=== PATIENT | female | born 1995 | race Caucasian/White ===

== ENCOUNTER 2022-01-02 08:41 | Emergency (ER) | payer BC, SELFPAY ==
[2022-01-02 08:50] VITALS: BP 114/70; PULSE 77; RESP 14; TEMP 36.5; O2SAT 100
--- NOTE | 2022-01-02 09:00 | ED.ABDPAIN ---
HPI - Abdominal Pain General Chief Complaint: Abdominal Pain Stated Complaint: throwing up blood last noc Time Seen by Provider: 01/02/22 08:50 History of Present Illness HPI narrative: 26-year-old female presents emergency room complaints of nausea vomiting and diarrhea since last night. Patient states she had multiple episodes of emesis last night, with the last episode having small amount of bright red blood. Patient states that she did eat pizza last night so it is possible that the blood is really just the tomato sauce. Patient admits to frequent use of tylenol, admitting to taking 2 tablets every 4 hours for back pain. Related Data Allergies Allergy/AdvReac Type Severity Reaction Status Date / Time No Known Allergies Allergy Verified 01/02/22 09:02 Review of Systems Review of Systems: CONSTITUTIONAL: Denies fever, chills, or sweats. EYES: Denies visual changes, redness, or discharge. ENT: Denies rhinorrhea, congestion, sore throat, or otalgia. CARDIOVASCULAR: Denies chest pain, palpitations, or edema. RESPIRATORY: Denies cough or dyspnea. GASTROINTESTINAL: Reports abdominal pain, nausea, vomiting and diarrhea GENITOURINARY: Denies dysuria or hematuria. SKIN: Denies rash or itching. MUSCULOSKELETAL: Denies back pain, joint pain, or myalgia. NEUROLOGIC: Denies headache, numbness, dizziness, or weakness. PSYCHIATRIC: Denies anxiety or depression. Exam Narrative: GENERAL: Well-appearing, well-nourished, no physical limitations, and in no acute distress. HEAD: Normocephalic, atraumatic. EYES: Conjunctivae normal, PERRLA and EOMI. CHEST: Clear to auscultation. No respiratory distress. No wheezes rales or rhonchi. No tenderness. HEART: Regular rate and rhythm. No murmur heard. Normal peripheral pulses. ABDOMEN: Soft, right upper quadrant tenderness, morbid obesity, normal active bowel sounds. BACK: No CVA tenderness; No cervical/thoracic/lumbar tenderness, step-offs, bony abnormality; FROM EXTREMITIES: Normal range of motion. No edema. No clubbing or cyanosis SKIN: Warm, dry, no rash. No noted wounds NEURO: No focal deficits. Alert and oriented x3. MAEW. CN's II-XI intact bilaterally, normal gait PSYCH: Cooperative. Normal mood and affect. Course Vital Signs Vital signs: Vital Signs Temperature 36.5 C 01/02/22 08:50 Pulse Rate 77 01/02/22 08:50 Respiratory Rate 14 01/02/22 08:50 Blood Pressure 114/70 01/02/22 08:50 Pulse Oximetry 100 01/02/22 08:50 Oxygen Delivery Room Air 01/02/22 08:50 Temperature 36.5 C 01/02/22 08:50 Pulse Rate 77 01/02/22 08:50 Respiratory Rate 14 01/02/22 08:50 Blood Pressure 114/70 01/02/22 08:50 Pulse Oximetry 100 01/02/22 08:50 Oxygen Delivery Room Air 01/02/22 08:50 MDM - Abdominal Pain Lab Data Result diagrams: 01/02/22 09:03 01/02/22 09:03 Labs: Lab Results 01/02/22 01/02/22 01/02/22 Range/Units 09:01 09:03 09:03 WBC 9.0 (4.5-10.0) K/mm3 RBC 4.67 (4.2-5.4) M/mm3 Hgb 12.9 (12.0-15.0) g/dL Hct 41.1 (37.0-47.0) % MCV 88.0 (80-100) fl MCH 27.6 (26-34) pg MCHC 31.4 L (32-36) g/dl RDW 13.2 (11.5-14.5) % Plt Count 266 (150-375) k/mm3 MPV 10.9 H (7.4-10.4) fl Immature Gran % (Auto) 0.2 (0-0.5) % Neut % (Auto) 66.3 (45.5-73.1) % Lymph % (Auto) 25.6 (18.3-44.2) % Miller % (Auto) 6.5 (2.6-8.5) % Eos % (Auto) 1.1 (0-4.4) % Baso % (Auto) 0.3 (0.2-1.2) % Lymph # (Auto) 2.31 (0.9-3.2) K/mm3 Miller # (Auto) 0.6 (0.1-0.6) K/mm3 Eos # (Auto) 0.1 (0-0.3) K/mm3 Baso # (Auto) 0.0 (0.0-0.1) K/mm3 Abs Immat Gran (auto) 0.02 (0.00-0.031) K/mm3 Absolute Neuts (auto) 6.0 (1.3-6.7) K/mm3 Absolute Nucleated RBC 0.0 (0.0-0.012) K/mm3 Nucleated RBC % 0.0 (0.0-0.2) % Sodium 137 (137-145) mmol/L Potassium 3.9 (3.4-5.0) mmol/L Chloride 100 (98-107) mmol/L Carbon Dioxide 29 (22-30) mmol/L Ani
[2022-01-02 09:10] LABS: Basophils Percent Auto 0.3 % (0.2-1.2); Eosinophils Absolute Auto 0.1 K/mm3 (0-0.3); Eosinophils Percent Auto 1.1 % (0-4.4); Hematocrit 41.1 % (37.0-47.0); Hemoglobin 12.9 g/dL (12.0-15.0); Immature Granulocyte Absolute 0.02 K/mm3 (0.00-0.031); Immature Granulocyte Percent A 0.2 % (0-0.5); Lymphocytes Absolute Auto 2.31 K/mm3 (0.9-3.2); Lymphocytes Percent Auto 25.6 % (18.3-44.2); Mean Corpuscular HGB Conc 31.4 g/dl (32-36); Mean Corpuscular Hemoglobin 27.6 pg (26-34); Mean Platelet Volume 10.9 fl (7.4-10.4); Monocytes Absolute Auto 0.6 K/mm3 (0.1-0.6); Monocytes Percent Auto 6.5 % (2.6-8.5); Neutrophils Percent Auto 66.3 % (45.5-73.1); Platelet Count Result 266 k/mm3 (150-375); Red Blood Count 4.67 M/mm3 (4.2-5.4); Red Cell Distribution Width 13.2 % (11.5-14.5)
[2022-01-02 09:12] LABS: Appearance Urine Slightly Cloudy (Clear); Bilirubin Urine Negative (Negative); Blood Urine 3+ (Negative); Color Urine Yellow (Yellow); Glucose Urine UA Negative (Negative); Ketones Urine Negative (Negative); Leukocyte Esterase Ur Trace LEU/UL (Negative); Nitrate Urine Negative (Negative); Protein Urine Negative (Negative); Urobilinogen Urine 0.2 mg/dL (<2.0); pH Urine 7.5 (5.0-9.0)
[2022-01-02 09:15] LABS: Bacteria Urine Trace /hpf; Mucus Urine Rare /lpf; RBC Urine >75 /hpf (0-2); Squamous Epithelial Cell Urine Many /hpf (Few); WBC Urine 0-3 /hpf
[2022-01-02 09:29] LABS: Alanine Aminotransferase 15 U/L (6-35); Albumin Level 4.4 g/dL (3.5-5.1); Alkaline Phosphatase 63 U/L (38-126); Anion Gap 8 mmol/L (8-16); Aspartate Amino Transferase 18 U/L (14-36); Bilirubin,Total 0.6 mg/dL (0.2-1.3); Blood Urea Nitrogen 8 mg/dL (7-17); Calcium 9.4 mg/dL (8.4-10.2); Carbon Dioxide 29 mmol/L (22-30); Chloride 100 mmol/L (98-107); Estimated CRCL calculation 138 ml/min; Estimated Glomerular Filt Rate > 60; Glucose 98 mg/dL (65-110); Lipase 38 U/L (23-300); Potassium 3.9 mmol/L (3.4-5.0); Sodium 137 mmol/L (137-145)
[2022-01-02] MEDS: SODIUM CHLORIDE 0.9% IV 1,000 ML 999 ML IV CONT (09:37)
[2022-01-02] MEDS: PANTOPRAZOLE SODIUM IV 40 MG VIAL IV PUSH (09:38)
[2022-01-02] MEDS: ONDANSETRON INJ 4 MG/2 ML VIAL IV PUSH (09:38)
[2022-01-02] MEDS: Please add drug allergy info to patient profile. 1 EACH XX (09:42)
[2022-01-02 09:50] LABS: Add Urine Microscopic? YES
== END 2022-01-02 11:04 | disposition home or self-care (01) ==
PROVIDERS: Emergency Medicine; Emergency Provider Nurse Practitioner Family
DX: R11.2 Nausea with vomiting, unspecified (principal); R10.9 Unspecified abdominal pain
CPT/HCPCS: 36415; 80053; 81001; 81025; 83690; 85025; 96361; 96374; 96375; 99284; C9113; J2405; J7030

== ENCOUNTER 2022-12-15 12:46 | Emergency (ER) | payer OTHER, SELFPAY ==
--- NOTE | ~2022-12-15 | XR_ITS ---
XR finger 3rd RT min 2V 12/15/2022 13:10 INDICATION: Right third finger pain PROCEDURE: 3 views right third finger COMPARISON: No prior studies for comparison. FINDINGS: Fracture, dislocation or subluxation is not identified. The soft tissues appear within norm al limits. No foreign bodies are identified. IMPRESSION: 1: NO ACUTE BONE OR JOINT ABNORMALITY IDENTIFIED. Reviewed, dictated and finalized at location A.
--- NOTE | 2022-12-15 12:48 | ED.EXTPRO ---
HPI - Extremity Problem General Chief complaint: Skin/Abscess/Foreign Body Stated complaint: R finger injury Time Seen by Provider: 12/15/22 12:47 Source: patient Mode of arrival: ambulatory Limitations: no limitations History of Present Illness HPI Narrative: 27 year old female presents to the Emergency Department complaining of right 3rd finger injury. States slammed in hybrid corn breeder 3 days ago. Thinks it may be getting infected because more erythema and swelling. MD Complaint: extremity pain Onset (ago): day(s) (3) Pain Consistency: constant Location: right and upper extremity (3rd finger) Radiation: none Relieving factors: nothing Exacerbating factors: nothing Associated symptoms: denies other symptoms Related Data Home Medications Medication Instructions Recorded Confirmed levothyroxine 50 mcg capsule 50 mcg PO DAILY 01/08/22 12/15/22 norgestimate-ethinyl estradiol 1 tablet PO DAILY 01/08/22 12/15/22 0.18 mg/0.215mg/0.25mg-35 mcg(28)tablet (Tri-Estarylla) hydrocodone 5 mg-acetaminophen 300 1 tablet PO Q4-6H PRN back pain 12/15/22 12/15/22 mg tablet Allergies Allergy/AdvReac Type Severity Reaction Status Date / Time No Known Allergies Allergy Verified 01/08/22 14:27 Review of Systems Review of Systems: All systems reviewed & are unremarkable except as noted in HPI and below Constitutional: Constitutional: Reports as per HPI, Denies chills and Denies fever(s) Eyes: Eyes: Reports as per HPI and Denies change in vision ENT: Reports system reviewed and no additional complaints, except as documented Cardiovascular: Cardiovascular: Reports as per HPI and Denies chest pain Respiratory: Respiratory: Reports as per HPI and Denies dyspnea Gastrointestinal: Gastrointestinal: Reports as per HPI, Denies nausea and Denies vomiting Genitourinary: Genitourinary: Reports no additional female genitourinary complaints Musculoskeletal: Musculoskeletal: Reports no additional musculoskeletal complaints Integumentary/Breasts: Skin/Breast: Reports system reviewed and no additional complaints, except as docu Neurologic: Reports system reviewed and no additional complaints, except as documented Psychiatric: Psychiatric: Reports no additional psychiatric complaints Endocrine: Endocrine: Reports no additional endocrine complaints Hematologic/Lymphatic: Hematologic/Lymphatic: Reports no additional hematologic/lymphatic complaints Allergic/Immunologic: Allergic/Immunologic: Reports no additional allergic/immunologic complaints PMFSH Past Medical History Medical History Nausea and vomiting Family History Family History Father Diabetes mellitus Hypertension Depression Mother Depression Social History Social History Smoking status: Never smoker Alcohol intake: current Substance use: current Living arrangements: with family Gender identity (if verbalized by the patient): Female Exam Const: General: healthy appearing Nutritional Appearance: well nourished Orientation/consciousness: patient oriented x3 Limitations: no limitations HENMT: Head: normal to inspection Ears: external ears normal Face/Nose/Sinus: Normal external nose present Face and sinus: normal facial exam Eyes: Conjunctivae: conjunctivae normal Pupils: Equal, round and reactive pupils present EOM: EOMs intact bilaterally Direct Ophthalmoscopy: no photophobia Neck: Neck: normal visual inspection Chest: Chest palpation & inspection: normal inspection of the chest Resp: Effort & Inspection: normal respiratory effort Cardio: Rate: regular rate GI: Inspection: non-distended Skin: Other: erythema to distal R 3rd finger Neuro: General: patient oriented x3 and moves all extremities Cranial nerves: Yes Nystagmus not present Speech: normal speech G
[2022-12-15 12:50] VITALS: BP 111/72; PULSE 72; RESP 20; TEMP 36.7; O2SAT 96
[2022-12-15 13:38] VITALS: BP 122/78; PULSE 80; RESP 20; TEMP 36.6; O2SAT 98
== END 2022-12-15 13:39 | disposition home or self-care (01) ==
PROVIDERS: Emergency Provider Emergency Medicine
DX: S60.031A Contusion of right middle finger without damage to nail, initial encounter (principal); L03.011 Cellulitis of right finger; Z79.891 Long term (current) use of opiate analgesic; W23.0XXA Caught, crushed, jammed, or pinched between moving objects, initial encounter
CPT/HCPCS: 73140; 99283

== ENCOUNTER 2023-06-27 01:07 | Emergency (ER) | payer BC, SELFPAY ==
[2023-06-27 01:07] VITALS: BP 106/67; PULSE 60; RESP 18; TEMP 36.9; O2SAT 99
--- NOTE | 2023-06-27 01:10 | ED.URI ---
HPI - URI/Sore Throat General Chief Complaint: Dizziness Stated Complaint: Sinus Pressure Time Seen by Provider: 06/27/23 01:08 Source: patient Mode of arrival: ambulatory Limitations: no limitations History of Present Illness HPI Narrative: This is a 27-year-old female with sinus congestion with a postnasal drip bilateral ear pressure with low-grade fevers with no shortness of breath no wheezing no nausea vomiting. MD elicited complaint: fever, nasal congestion and sinus pain Onset (ago): day(s) Consistency: constant Severity: moderate Related Data Home Medications Medication Instructions Recorded Confirmed levothyroxine 50 mcg capsule 50 mcg PO DAILY 01/08/22 06/27/23 norgestimate-ethinyl estradiol 1 tablet PO DAILY 01/08/22 06/27/23 0.18 mg/0.215mg/0.25mg-35 mcg(28)tablet (Tri-Estarylla) Allergies Allergy/AdvReac Type Severity Reaction Status Date / Time No Known Allergies Allergy Verified 06/27/23 01:23 Review of Systems Review of Systems: All systems reviewed & are unremarkable except as noted in HPI and below PMFSH Past Medical History Medical History Nausea and vomiting Family History Family History Father Diabetes mellitus Hypertension Depression Mother Depression Social History Social History Smoking status: Never smoker Alcohol intake: current Substance use: current Living arrangements: with family Gender identity (if verbalized by the patient): Female Exam Const: General: healthy appearing Nutritional Appearance: well nourished Orientation/consciousness: patient oriented x3 HENMT: Other: Frontal maxillary sinus tenderness with palpation Eyes: Conjunctivae: conjunctivae normal Neck: Neck: normal visual inspection, no lymphadenopathy and no meningeal signs Chest: Chest palpation & inspection: normal inspection of the chest Resp: Effort & Inspection: normal respiratory effort Auscultation: clear to auscultation bilaterally Cardio: Rate: regular rate Rhythm: regular rhythm Course Course Emergency Course: COVID RSV and influenza reviewed negative, patient given Zithromax p.o. here in the emergency department. patient is positive for COVID Transfer Transfer comments: COVID RSV and influenza were all reviewed and negative, patient received a dose Zithromax p.o.. Critical Care Time Critical Care Time Critical Care Time: No Discharge Plan Discharge Clinical Impression: COVID-19 Patient Disposition: Home, Self-Care Condition: Stable Instructions: Antibiotic Form, COVID-19 (Coronavirus Disease 2019) (ED) Additional Instructions: advised to take medicine as prescribed self isolate x1 week, Tylenol or Motrin and follow with primary if symptoms persist or worsen. Prescriptions: New Paxlovid 300 mg (150 mg x 2)-100 mg tablets,dose pack See Rx Instructions .ROUTE .COMPLEX Qty: 30 0RF Rx Instructions: take TWO 150 mg tablets of nirmatrelvir with ONE 100 mg tablet of ritonavir twice daily for 5 days No Action norgestimate-ethinyl estradiol [Tri-Estarylla] 0.18/0.215/0.25 mg-35 mcg (28) tablet 1 tablet PO DAILY levothyroxine 50 mcg capsule 50 mcg PO DAILY Follow-up/Referrals: UNKNOWN,DOCTOR [Primary Care Provider] - Time of Disposition: 02:04
[2023-06-27] MEDS: AZITHROMYCIN 250 MG TABLET 500 MG PO (01:36)
[2023-06-27 01:52] LABS: SARS-CoV-2 RNA PCR Positive (Negative)
[2023-06-27 01:53] LABS: Influenza A QL RT-PCR Negative (Negative); Influenza B QL RT-PCR Negative (Negative); RSV RNA, RT-PCR Negative (Negative)
== END 2023-06-27 02:25 | disposition home or self-care (01) ==
PROVIDERS: Emergency Provider Emergency Medicine
DX: U07.1 COVID-19 (principal); Z79.899 Other long term (current) drug therapy
CPT/HCPCS: 87637; 99283; A9270

== ENCOUNTER 2023-06-30 05:21 | Emergency (ER) | payer BC, SELFPAY ==
--- NOTE | ~2023-06-30 | XR_ITS ---
EXAMINATION: XR chest 1V portable DATE: 06/30/2023 05:48 INDICATION: Shortness of breath. TECHNIQUE: A single frontal view of the chest was obtained. COMPARISON: None. FINDINGS: There is no pneumonia, pleural effusion, or pneumothorax. The heart size is normal. IMPRESSION: 1. No acute cardiopulmonary disease. Reviewed, dictated and finalized at location E. SCALER
[2023-06-30 05:21] VITALS: BP 125/70; PULSE 74; RESP 20; TEMP 36; O2SAT 99
[2023-06-30 05:57] LABS: Hematocrit 37.6 % (35.0-49.0); Hemoglobin 12.1 g/dL (12.0-15.0); Mean Corpuscular HGB Conc 32.2 g/dL (32.0-36.0); Mean Corpuscular Hemoglobin 27.7 pg (27.0-31.0); Mean Platelet Volume 10.9 fl (9.2-11.8); Platelet Count Result 256 K/mm3 (150-420); Red Blood Count 4.37 M/mm3 (4.20-5.40); White Blood Count 11.2 K/mm3 (4.8-10.8)
[2023-06-30 06:06] LABS: Anion Gap 11 mmol/L (8-16); Blood Urea Nitrogen 9 mg/dL (7-18); Calcium 8.8 mg/dL (8.5-10.1); Carbon Dioxide 26 mmol/L (21-32); Chloride 101 mmol/L (98-108); Estimated CRCL calculation 120 ml/min; Estimated Glomerular Filt Rate > 60; Glucose 117 mg/dL (70-99); Osmolality Calculated 285 mOsm/kg (285-295); Potassium 3.5 mmol/L (3.5-5.1); Sodium 138 mmol/L (136-145)
--- NOTE | 2023-06-30 06:15 | ED.URI ---
HPI - URI/Sore Throat General Chief Complaint: Upper Respiratory Infection Stated Complaint: sick Source: patient Mode of arrival: ambulatory Limitations: no limitations History of Present Illness HPI Narrative: patient is a 27-year-old female with known COVID 5 days ago. She has still had some complaints to include shortness of breath. She took the Paxlovid but did not like the results of how she felt so she stopped that medication. MD elicited complaint: cough and nasal congestion Onset (ago): day(s) (5) Consistency: constant Severity: moderate Pain scale (0-10): 5 Description of mucous: clear Able to tolerate fluids by mouth: Yes Exacerbating factors: nothing Relieving factors: nothing Associated symptoms: myalgias, chest pain ( With breathing only) and shortness of breath Treatments prior to arrival: other ( used antiviral but did not like how it made her feel as she felt worse; stopped antiviral) Related Data Home Medications Medication Instructions Recorded Confirmed levothyroxine 50 mcg capsule 50 mcg PO DAILY 01/08/22 06/30/23 norgestimate-ethinyl estradiol 1 tablet PO DAILY 01/08/22 06/30/23 0.18 mg/0.215mg/0.25mg-35 mcg(28)tablet (Tri-Estarylla) Allergies Allergy/AdvReac Type Severity Reaction Status Date / Time No Known Allergies Allergy Verified 06/30/23 05:45 Review of Systems Review of Systems: All systems reviewed & are unremarkable except as noted in HPI and below Constitutional: Constitutional: Reports no additional constitutional complaints Eyes: Eyes: Reports no additional eye complaints ENT: Reports system reviewed and no additional complaints, except as documented Cardiovascular: Cardiovascular: Reports no additional cardiovascular complaints Respiratory: Respiratory: Reports no additional respiratory complaints Gastrointestinal: Gastrointestinal: Reports no additional gastrointestinal complaints Genitourinary: Genitourinary: Reports no additional female genitourinary complaints Musculoskeletal: Musculoskeletal: Reports no additional musculoskeletal complaints Integumentary/Breasts: Skin/Breast: Reports system reviewed and no additional complaints, except as docu Neurologic: Reports system reviewed and no additional complaints, except as documented Psychiatric: Psychiatric: Reports no additional psychiatric complaints Endocrine: Endocrine: Reports no additional endocrine complaints Hematologic/Lymphatic: Hematologic/Lymphatic: Reports no additional hematologic/lymphatic complaints Allergic/Immunologic: Allergic/Immunologic: Reports no additional allergic/immunologic complaints [facility] Past Medical History Medical History Nausea and vomiting Family History Family History Father Diabetes mellitus Hypertension Depression Mother Depression Social History Social History Smoking status: Never smoker Alcohol intake: current Substance use: current Living arrangements: with family Gender identity (if verbalized by the patient): Female Exam Const: General: healthy appearing Nutritional Appearance: well nourished Orientation/consciousness: patient oriented x3 HENMT: Head: normal to inspection Ears: external ears normal Face/Nose/Sinus: Normal external nose present Eyes: Conjunctivae: conjunctivae normal Pupils: Equal, round and reactive pupils present EOM: EOMs intact bilaterally Neck: Neck: normal visual inspection Chest: Chest palpation & inspection: normal inspection of the chest Resp: Effort & Inspection: normal respiratory effort and not labored Auscultation: clear to auscultation bilaterally and no crackles Cardio: Rate: regular rate Rhythm: regular rhythm Heart sounds: no murmurs GI: Inspection: non-distended GI Palp: No Tenderness to palpation present (GI) Auscultati
== END 2023-06-30 06:46 | disposition home or self-care (01) ==
PROVIDERS: Emergency Provider Emergency Medicine
DX: U07.1 COVID-19 (principal)
CPT/HCPCS: 36415; 71045; 80048; 85027; 99283

== ENCOUNTER 2023-07-01 01:32 | Emergency (ER) | payer BC, SELFPAY ==
[2023-07-01 01:32] VITALS: BP 118/82; PULSE 76; RESP 18; TEMP 36; O2SAT 99
--- NOTE | 2023-07-01 01:49 | ED.NAVMDI ---
HPI - Nausea/Vomiting/Diarrhea General Chief complaint: Nausea/Vomiting/Diarrhea Stated complaint: sick Time Seen by Provider: 07/01/23 01:42 Source: patient Mode of arrival: ambulatory Limitations: no limitations History of Present Illness HPI Narrative: patient is a 27 years old white female came to the emergency room with nausea and vomiting unable to keep anything down for the last 24 hours. Patient tested positive for COVID on June 27, started on paxlovid which stopped 2 days later because make her feel funny Was seen again on June 30 which is yesterday because of shortness of breath and nasal congestion, workup at that time include blood workup and chest x-ray were negative and patient was discharged on Z-Main, prednisone and albuterol inhaler. Patient is back again to the emergency room on July 01 because unable to keep anything down. She denies trouble breathing or nasal congestion. Patient drove herself to the emergency room. patient been uses marijuana daily, last use was 5 days ago. Related Data Home Medications Medication Instructions Recorded Confirmed levothyroxine 50 mcg capsule 50 mcg PO DAILY 01/08/22 07/01/23 (Tirosint) norgestimate-ethinyl estradiol 1 tablet PO DAILY 01/08/22 07/01/23 0.18 mg/0.215mg/0.25mg-35 mcg(28)tablet (Tri-Estarylla) albuterol sulfate 90 mcg/actuation 2 puff inhalation Q6H PRN 07/01/23 07/01/23 aerosol inhaler (ProAir HFA) shortness of breath or wheezing azithromycin 250 mg tablet See Rx Instructions .Route .COMPLEX 07/01/23 07/01/23 (Zithromax) Allergies Allergy/AdvReac Type Severity Reaction Status Date / Time No Known Allergies Allergy Verified 07/01/23 01:58 Review of Systems Review of Systems: All systems reviewed & are unremarkable except as noted in HPI and below PMFSH Past Medical History Medical History Nausea and vomiting Family History Family History Father Diabetes mellitus Hypertension Depression Mother Depression Social History Social History Smoking status: Never smoker Alcohol intake: current Substance use: current Living arrangements: with family Gender identity (if verbalized by the patient): Female Exam Narrative: General appearance: Well-developed, well-nourished , sitting at the edge of the bed, holding vomiting bag in hand Skin: Normal color Head: Normocephalic, nontraumatic ENT: Oropharynx normal, ears normal, nose normal Neck: Supple, nontender Chest and respiratory: Airway patent, no respiratory distress, no accessory muscle use Heart: Regular rate/rhythm Abdomen: Soft, nontender, no organomegaly, quiet bowel sounds Neurologic: Alert and oriented ?3, PROFESSIONAL BUILDER is normal as tested, no gross motor deficit Course Vital Signs Vital signs: Vital Signs Temperature 36.0 C L 07/01/23 01:32 Pulse Rate 76 07/01/23 01:32 Respiratory Rate 18 07/01/23 01:32 Blood Pressure 118/82 07/01/23 01:32 Pulse Oximetry 99 07/01/23 01:32 Oxygen Delivery Room Air 07/01/23 01:32 Temperature 36.0 C L 07/01/23 01:32 Pulse Rate 76 07/01/23 01:32 Respiratory Rate 18 07/01/23 01:32 Blood Pressure 118/82 07/01/23 01:32 Pulse Oximetry 99 07/01/23 01:32 Oxygen Delivery Room Air 07/01/23 01:32 MDM - Nausea/Vomiting/Diarrhea MDM Narrative Medical decision making narrative: patient tested positive for COVID 4 days ago, came to the ED with nausea and vomiting unable to keep anything down. differential diagnosis: COVID infectio
[2023-07-01] MEDS: ONDANSETRON INJ 4 MG/2 ML VIAL 8 MG IV PUSH (01:55)
[2023-07-01] MEDS: SODIUM CHLORIDE 0.9% IV 1,000 ML 999 ML IV CONT ×2 (01:55→02:46)
--- NOTE | 2023-07-01 02:03 | PC.NURSE ---
IV STARTED AND PATIENT MEDICATED, SEE MAR. NO ACTIVE EMESIS NOTED. BLOOD WORK SENT TO LAB FOR ANALYSIS. CALL LIGHT WITHIN REACH.
[2023-07-01 02:05] LABS: Basophils Absolute Auto 0.02 K/mm3 (0.00-0.10); Basophils Percent Auto 0.1 % (0.0-1.0); Eosinophils Absolute Auto 0.01 K/mm3 (0.02-0.50); Eosinophils Percent Auto 0.1 % (1.0-6.0); Hematocrit 39.4 % (35.0-49.0); Hemoglobin 12.8 g/dL (12.0-15.0); Immature Granulocyte Absolute 0.07 K/mm3 (0.00-0.00); Immature Granulocyte Percent A 0.4 % (0.0-0.0); Lymphocytes Absolute Auto 1.59 K/mm3 (1.10-4.50); Lymphocytes Percent Auto 9.4 % (18.0-42.0); Mean Corpuscular HGB Conc 32.5 g/dL (32.0-36.0); Mean Corpuscular Hemoglobin 27.9 pg (27.0-31.0); Mean Platelet Volume 11.1 fl (9.2-11.8); Monocytes Absolute Auto 0.83 K/mm3 (0.10-0.90); Monocytes Percent Auto 4.9 % (2.0-11.0); Neutrophils Absolute Auto 14.4 K/mm3 (1.7-7.2); Neutrophils Percent Auto 85.1 % (50.0-70.0); Platelet Count Result 316 K/mm3 (150-420); Red Blood Count 4.58 M/mm3 (4.20-5.40); Red Cell Distribution Width 12.8 % (11.6-14.4); White Blood Count 16.9 K/mm3 (4.8-10.8)
[2023-07-01 02:21] LABS: Alanine Aminotransferase 14 U/L (14-59); Albumin Level 3.9 g/dL (3.4-5.0); Alkaline Phosphatase 69 U/L (46-116); Anion Gap 10 mmol/L (8-16); Aspartate Amino Transferase < 10 U/L (15-37); Bilirubin,Total 0.5 mg/dL (0.00-1.00); Blood Urea Nitrogen 8 mg/dL (7-18); Calcium 8.8 mg/dL (8.5-10.1); Carbon Dioxide 25 mmol/L (21-32); Chloride 102 mmol/L (98-108); Estimated CRCL calculation 126 ml/min; Estimated Glomerular Filt Rate > 60; Glucose 127 mg/dL (70-99); Osmolality Calculated 284 mOsm/kg (285-295); Potassium 4.1 mmol/L (3.5-5.1); Sodium 137 mmol/L (136-145); Total Protein 8.2 g/dL (6.4-8.2)
--- NOTE | 2023-07-01 02:49 | PC.NURSE ---
PATIENT CHECKED, SECOND IV BAG HUNG AND PATIENT RESTING WITHOUT DISTRESS. DENIES FURTHER EMESIS. CALL LIGHT WITHIN REACH. PATIENT AWARE OF REQUEST FOR URINE SPECIMEN. PATIENT REPORTS IMPROVED NAUSEA.
--- NOTE | 2023-07-01 03:50 | PC.NURSE ---
PATIENT ASLEEP ON STRETCHER, IVF INFUSED. RN MONITORING.
--- NOTE | 2023-07-01 04:40 | PC.NURSE ---
ERP AT BEDSIDE FOR PATIENT UPDATE. PLAN FOR DC PATIENT REPORTS FEELING IMPROVED POST TX.
[2023-07-01 04:55] VITALS: BP 106/74; PULSE 58; RESP 18; TEMP 36.1; O2SAT 100
== END 2023-07-01 04:57 | disposition home or self-care (01) ==
PROVIDERS: Emergency Provider Emergency Medicine
DX: U07.1 COVID-19 (principal); R11.10 Vomiting, unspecified; Z79.899 Other long term (current) drug therapy
CPT/HCPCS: 36415; 80053; 85025; 96361; 96374; 99284; J2405; J7030

== ENCOUNTER 2024-07-06 18:06 | Emergency (ER) | payer BC, SELFPAY ==
[2024-07-06] VITALS (14 sets, daily range): BP systolic 95–133; BP diastolic 57–88; PULSE 73–78; RESP 16–18; TEMP 36.4; O2SAT 97–100
--- OUTSIDE RECORDS SUMMARY | 2024-07-06 18:09 | XMS_ITS | Clinical Summary ---
Author Organization [facility] Address [facility] [place] [address] Care Team Providers Care Concrete Analyst Name Role Phone Madhu Carolina MD Primary Care Provider [phone] Allergies Active Allergy Reactions Criticality Noted Date Comments Coconut (Cocos Nucifera) Unknown 08/19/2017 Mint Unknown 08/19/2017 Medications LEVOTHYROXINE 25 MCG tabletIndication s:Hypothyroidism TAKE 1 TABLET BY MOUTH DAILY 30 tablet 11/25/2018 Active etonogestrel (IMPLANON) 68 MG SC implant Active Active Problems No known active problems Family History Medical History Relation Comments Diabetes Father No Known Problems Mother Relation Status Comments Father Mother Social History Tobacco Use Types Packs/Day Years Used Date Smoking Tobacco: Never Smokeless Tobacco: Never Alcohol Use Standard Drinks/Week Comments Yes 0 (1 standard drink = 0.6 oz pur e alcohol) Comments No Sex and Gender Information Value Date Recorded Sex Assigned at Not on file Legal Sex Female 7:55 PM CDT Gender Identity Not on file Sexual Orientation Not on file Last Filed Vital Signs Vital Sign Reading Time Taken Comments Blood Pressure 115/78 04/25/2020 10:19 AM DISPATCHER SERVICE CHIEF Pulse 98 04/25/2020 10:19 AM DISPATCHER SERVICE CHIEF Temperature 36.2 C (97.2 F) 04/25/2020 10:19 AM DISPATCHER SERVICE CHIEF Respiratory Rate 18 04/25/2020 10:19 AM DISPATCHER SERVICE CHIEF Oxygen Saturation 100% 04/25/2020 10:19 AM DISPATCHER SERVICE CHIEF Inhaled Oxygen Concentration - - Weight 113.4 kg (250 lb) 04/25/2020 10:19 AM DISPATCHER SERVICE CHIEF Height 170.2 cm (5' 7 ) 04/25/2020 10:19 AM DISPATCHER SERVICE CHIEF Body Mass Index 39.16 04/25/2020 10:19 AM DISPATCHER SERVICE CHIEF Plan of Treatment Health Maintenance Due Date Last Done Comments Cervical Cancer Screening Pa p Smear (Age 21 to 29) Every 3 Years 1994 Cervical Cancer Screening 1994 Annual Physical 1997 DTaP, Tdap and Td Vaccines ( 1 - Tdap) 2013 Hepatitis B Vaccines (1 of 3 - 19+ 3-dose series) 2013 COVID-19 Vaccine (2023-2 5 season) 2024 Influenza Adult (#1) 2024 Hepatitis C Completed 08/19/2017, 08/19/2017 HPV Vaccines Aged Out No longer eligi ble based on patient's age to complete this topic Meningococcal B Vaccine Aged Out No l onger eligible based on patient's age to complete this topic Meningococcal Vaccine Aged Out No maxine joe eligible based on patient's age to complete this topic Pneumococcal Vaccine: Pediatrics (0 to 5 Years) and At-Risk Patients (6 to 64 Years) Aged Out No longer eligible b ased on patient's age to complete this topic RSV Immunizations Under 20 Months Aged Out No longer eligible b ased on patient's age to complete this topic Procedures Procedure Name Priority Date/Time Associated Diagnosis Comments HEPATITIS A,B,& C Routine 08/19/2017 11: 50 AM CDT from Last 3 Months or Most Recently Relevant to Health Maintenance Results * HEPATITIS A,B,& C (08/19/2017 11:50 AM CDT) HAV IGM NON-REACTI VE NR [employer] TO EPIC CONVERSION HEPATITIS B SURFACE AG NON-REACTI VE NR [employer] TO EPIC CONVERSION HEP B SURFACE AB NON-REACTI VE [employer] TO EPIC CONVERSION HEP B CORE TOTAL AB NON-REACTI VE NR [employer] TO EPIC CONVERSION HEPATITIS C AB NON-REACTI VE NR [employer] TO EPIC CONVERSION 08/19/2017 11:5 0 AM CDT 08/19/2017 11:50 AM CDT Narrative [employer] TO EPIC CONVERSION - 08/19/2017 10:50 PM CDT Result Communication: Call patient with results us [facility] Final Result [employer] TO EPIC CONVERSION from Last 3 Months or Most Recently Relevant to Health [place] [address] ALLIED BENEFITS Care Teams Concrete Analyst Relationship Specialty Start Date End Date Madhu Carolina MD PCP - General 09/14/15
--- OUTSIDE RECORDS SUMMARY | 2024-07-06 18:09 | XMS_ITS | Data Portability ---
Author Organization [facility] Address [address] [place] [address] [place] [address] Care Team Providers Care Signal System Testing Maintainer Name Role Phone STEFANIE NASH Primary Care Provider Assessment Encounter Date Assessment Date Assessment LastModified by Organization Details LastModified Time 05/21/2024 05/21/2024 pap up to date BMI 42.8 plan testing continue vitamin f/u 3 week new ob and firt look with nipt/carrier basic panel with TSH today [email or web address] Not available 05/21/2024 15:09:02 Plan of Treatment Reminders Order Date Submit Date Provider Last Modified By Organization Details Last Modified Time Details Appointments OB ROUTINE 2024 02:45P M CAROLINA SheehanM Not available Not available Not available U/S OB BASELIN E 2024 02:30P M ULTRASOUND Not available Not available Not available OB ROUTINE 2024 03:30P M Blanca Pierre CNM Not available Not available Not available Lab CT + NG + TV, RNA, unspeci fied specime n 2023 024 [facility] (Lab), [address], [place], [address], 05/22/2024 13:30:55 drug screen, urine 2024 025 [facility], [address], [place], [address], 06/18/2024 12:35:16 culture , urine 2024 025 [facility] (Lab), [address], [place], [address], 06/19/2024 22:46:36 Referral None recorde d. Procedures None recorde d. Surgeries None recorde d. Imaging US, obstetr ic, nuchal translu cency 2024 025 [email or web address] [place], [facility] [address], [place], [address], 06/18/2024 18:12:07 Medication Orders None recorde d. Patient TargetsNo targets recorded. Patient InstructionsNo instructions recorded. Reason for Referral None Reported. Results Created Date Observation Date Name Description Value Unit Range Abnormal Flag Note LastModifiedBy Organization Detail LastModifiedTime 06/23/19 25 06/23/2024 [UNIT Y] ANEUP LOIDY NIPT fraction 4.3% normal Not Available [facility] [address] [place] [address], [place], [address], 06/23/2024 23:50:06 06/23/19 25 06/23/2024 [UNIT Y] ANEUP LOIDY NIPT 22Q11.2 microdeletio n LOW RISK <1 in 10,000 normal Not Available [facility] [address] [facility], [place], [address], 06/23/2024 23:50:06 06/23/19 25 06/23/2024 [UNIT Y] ANEUP LOIDY NIPT sex chromosome aneuploidy NOT DETECT ED normal Not Available [facility] [address] [facility], [place], [address], 06/23/2024 23:50:06 06/23/19 25 06/23/2024 [UNIT Y] ANEUP LOIDY NIPT monosomy X LOW RISK <1 in 10,000 normal Not Available [facility] [facility], [place], [address], 06/23/2024 23:50:06 06/23/19 25 06/23/2024 [UNIT Y] ANEUP LOIDY NIPT trisomy 13 LOW RISK <1 in 10,000 normal Not Available [facility] [address], [place], [address], 06/23/2024 23:50:06 06/23/19 25 06/23/2024 [UNIT Y] ANEUP LOIDY NIPT trisomy 18 LOW RISK <1 in 10,000 normal Not Available [facility] [address], [place], [address], 06/23/2024 23:50:06 06/23/19 25 06/23/2024 [UNIT Y] ANEUP LOIDY NIPT trisomy 21 LOW RISK <1 in 10,000 normal Not Available [facility] [address], [place], [address], 06/23/2024 23:50:06 06/23/19 25 06/23/2024 [UNIT Y] ANEUP LOIDY NIPT sex MALE normal Not Available [facility] [address] [facility], [place], [address], 06/23/2024 23:50:06 06/23/19 25 06/23/2024 [UNIT Y] ANEUP LOIDY NIPT gestation SINGLE TON normal Not Available [facility] [address] , [place], [address], 06/23/2024 23:50:06 06/23/19 25 06/23/2024 [UNIT Y] ANEUP LOIDY NIPT for detailed report, see pdf See PDF normal Not Available [facility] [address] , [place], [address], 06/23/2024 23:50:06 05/21/20 24 05/21/2024 CT/GC AND TRICH OMONA S VAGIN DAGMAR (RRNA ), URINE chlamydia trachomatis, PCR Negati ve negati ve Not Available [facility] (Lab) [address], [place], [address], 05/22/2024 13:30:55 05/21/20 24 05/21/2024 CT/GC AND TRICH OMONA S VAGIN DAGMAR (RRNA ), URINE neisseria gonorrhoeae, PCR Negati ve negati ve Not Available [facility] (Lab) [address], [place], [address], 05/22/2024 13:30:55 05/21/20 24 05/21/2024 CT/GC AND TRICH OMONA S VAGIN DAGMAR (RRNA ), URINE trichomonas vaginalis ribosomal RNA (rrna) Negati ve negati ve Not Available [facility] (Lab) [address], [place], [address], 05/22/2024 13:30:55 05/21/20 24 05/21/2024 CBC W/DIF F WBC 12.1 10'3/ uL 3.5-10 .5 high Not Available [facility] (Lab) [address], [place], [address], 05/22/2024 13:49:08 05/21/20 24 05/21/2024 CBC W/DIF F RBC 4.39 10'6/ uL (based on docume nted legal sex) 3.80-5 .20 Not Available [facility] (Lab) [address], [place], [address], 05/22/2024 13:49:08 05/21/20 24 05/21/2024 CBC W/DIF F HGB 12.4 g/dL (based on docume nted legal sex) 11.6-1 5.4 Not Available [facility] (Lab) [address], [place], [address], 05/22/2024 13:49:08 05/21/20 24 05/21/2024 CBC W/DIF F HCT 38.8 % (based on docume nted legal sex) 34.0-4 5.0 Not Available [facility] (Lab) [address], [place], [address], 05/22/2024 13:49:08 05/21/20 24 05/21/2024 CBC W/DIF F MCV 88.4 fL 80.0-9 9.0 Not Available [facility] (Lab) [address], [place], [address], 05/22/2024 13:49:08 05/21/20 24 05/21/2024 CBC W/DIF F MCH 28.2 pg 27.0-3 4.0 Not Available [facility] (Lab) [address], [place], [address], 05/22/2024 13:49:08 05/21/20 24 05/21/2024 CBC W/DIF F MCHC 32.0 g/dL 32.0-3 5.5 Not Available [facility] (Lab) [address], [place], [address], 05/22/2024 13:49:08 05/21/20 24 05/21/2024 CBC W/DIF F RDW 13.2 % 11.0-1 5.0 Not Available [facility] (Lab) [address], [place], [address], 05/22/2024 13:49:08 05/21/20 24 05/21/2024 CBC W/DIF F plt 264 10'3/ uL 150-40 0 Not Available [facility] (Lab) [address], [place], [address], 05/22/2024 13:49:08 05/21/20 24 05/21/2024 CBC W/DIF F MPV 12.3 fL 8.8-12 .1 high Not Available [facility] (Lab) [address], [place], [address], 05/22/2024 13:49:08 05/21/20 24 05/21/2024 CBC W/DIF F NRBC's 0.0 % 0.0 Not Available [facility] (Lab) [address], [place], [address], 05/22/2024 13:49:08 05/21/20 24 05/21/2024 CBC W/DIF F absolute NRBCs 0.0 10'3/ uL no refere nce range establ ished Not Available [facility] (Lab) [address] [facility], [place], [address], 05/22/2024 13:49:08 05/21/20 24 05/21/2024 CBC W/DIF F neutrophils 75.5 % 34.0-7 3.0 high Not Available [facility] (Lab) [address] [facility], [place], [address], 05/22/2024 13:49:08 05/21/20 24 05/21/2024 CBC W/DIF F lymphocytes 16.7 % 15.0-5 0.0 Not Available [facility] (Lab) [address] [facility], [place], [address], 05/22/2024 13:49:08 05/21/20 24 05/21/2024 CBC W/DIF F monocytes 6.4 % 1.0-15 .0 Not Available [facility] (Lab) [address] [facility], [place], [address], 05/22/2024 13:49:08 05/21/20 24 05/21/2024 CBC W/DIF F eosinophils 0.7 % 0.0-8. 0 Not Available [facility] (Lab) [address] [facility], [place], [address], 05/22/2024 13:49:08 05/21/20 24 05/21/2024 CBC W/DIF F basophils 0.2 % 0.0-2. 0 Not Available [facility] (Lab) [address] [place], [address], 05/22/2024 13:49:08 05/21/20 24 05/21/2024 CBC W/DIF F immature granulocytes 0.5 % no define d refere nce range Not Available [facility] (Lab) [address] [place] [facility] [place], [address], 05/22/2024 13:49:08 05/21/20 24 05/21/2024 CBC W/DIF F absolute neutrophils 9.1 10'3/ uL 1.5-8. 0 high Not Available [facility] (Lab) [address] [facility], [place], [address], 05/22/2024 13:49:08 05/21/20 24 05/21/2024 CBC W/DIF F absolute lymphocytes 2.0 10'3/ uL 1.0-4. 0 Not Available [facility] (Lab) [address] [facility], [place], [address], 05/22/2024 13:49:08 05/21/20 24 05/21/2024 CBC W/DIF F absolute monocytes 0.8 10'3/ uL 0.2-1. 0 Not Available [facility] (Lab) [address] [facility], [place], [address], 05/22/2024 13:49:08 05/21/20 24 05/21/2024 CBC W/DIF F absolute eosinophils 0.1 10'3/ uL 0.0-0. 6 Not Available [facility] (Lab) [address] [facility], [place], [address], 05/22/2024 13:49:08 05/21/20 24 05/21/2024 CBC W/DIF F absolute basophils 0.0 10'3/ uL 0.0-0. 3 Not Available [facility] (Lab) [address] [facility], [place], [address], 05/22/2024 13:49:08 05/21/20 24 05/21/2024 CBC W/DIF F absolute immature granulocytes 0.1 10'3/ uL 0.00-0 .10 05/22 2:49 AM: P indic ates parti al resul ts on a panel have been relea sed. Addit ional resul ts will follo w. 12/28 /2024 2:49 AM: This resul t has been final verif ied. No addit ional or kong ed resul ts are expec ellen. Not Available [facility] (Lab) [address], [place], [address], 05/22/2024 13:49:08 05/21/20 24 05/21/2024 HEPAT ITIS C ANTIB GURDEEP SCREE N, REFLE X TO CONFI RMATI ON hepatitis C antibody Non-re active non-re active Antib odies to HCV Not Detec ellen, does not exclu de the possi bilit y of expos ure to HCV. Not Available [facility] (Lab) [address], [place], [address], 05/22/2024 13:49:09 05/21/20 24 05/21/2024 HIV 1/2 ANTIG EN/AN TIBOD Y, REFLE X CONFI RMATI ON HIV antigen/anti body Nonrea ctive nonrea ctive HIV-1 antig en and HIV-1 /HIV- 2 antib odies were not detec ellen. No labor atory evide nce of HIV infec tion. Not Available [facility] (Lab) [address], [place], [address], 05/22/2024 13:49:09 05/21/20 24 05/21/2024 HEPAT ITIS B SURFA CE ANTIG EN hepatitis B surface antigen Non-re active non-re active This assay was perfo rmed using [employer] n reage nts and test kits. Value s obtai marquis with other assay metho ds or kits canno t be used inter kong eably . Not Available [facility] (Lab) [address], [place], [address], 05/22/2024 13:49:09 05/21/20 24 05/21/2024 TSH, REFLE X FREE T4 TSH 2.62 uIU/m L 0.30-5 .33 Not Available [facility] (Lab) [address], [place], [address], 05/22/2024 13:49:09 05/21/20 24 05/21/2024 RUBEL LA IGG ANTIB GURDEEP, QUANT rubella antibodies, IgG Reacti ve reacti ve Not Available [facility] (Lab) [address], [place], [address], 05/22/2024 13:49:10 05/21/20 24 05/21/2024 RUBEL LA IGG ANTIB GURDEEP, QUANT rubella antibodies, IgG quant 57.8 IU/mL >=10 Non-r eacti ve (Non- Immun e) <10 IU/mL React jacek (Immu ne) > or = 10 IU/mL Not Available [facility] (Lab) [address] [facility], [place], [address], 05/22/2024 13:49:10 05/21/20 24 05/21/2024 HEMOG LOBIN A1C hemoglobin A1C 5.5 % 4.0-5. 6 The Ameri can Diabe manuel Assoc iatio n recom mends that a prima ry goal of thera py shoul d be a HBA1C of < 7% and that physi cians shoul d reeva luate the treat ment regim en in patie nts with HBA1C value s consi stent ly > 8%. <5.7% Bethany l 5.7 - 6.4% Incre ased risk for diabe manuel >=6.5 % Diagn ostic of diabe manuel <7.0% Goal of thera py >8.0% Actio n sugge sted Not Available [facility] (Lab) [address], [place], [address], 05/22/2024 13:49:10 05/21/20 24 05/21/2024 TYPE/ RH/SC REEN ABO/Rh type O POS Not Available [facility] (Lab) [address], [place], [address], 05/22/2024 13:49:10 05/21/20 24 05/21/2024 TYPE/ RH/SC REEN antibody screen NEG Not Available [facility] (Lab) [address] [facility], [place], [address], 05/22/2024 13:49:10 05/21/20 24 05/21/2024 TYPE/ RH/SC REEN exp date 2023 23:59 Not Available [facility] (Lab) [address] [facility], [place], [address], 05/22/2024 13:49:10 05/21/20 24 05/21/2024 RPR SCREE N, REFLE X TITER /CONF IRMAT ION RPR screen Nonrea ctive nonrea ctive Not Available [facility] (Lab) [address] [facility], [place], [address], 05/22/2024 13:49:11 06/18/19 25 06/18/2024 TSH, REFLE X FREE T4 TSH 1.64 uIU/m L 0.30-5 .33 Not Available [facility] (Lab) [address] [place], [address], 06/19/2024 06:51:10 06/18/19 25 06/18/2024 CULTU RE: URINE result report SEE RESULT S BELOW Test: Cultu re: Urine Speci men Sourc e: Urine - Clean Catch Speci men Type: Urine Speci men Date: 2024 1157 Resul t Date: 2024 2143 Resul t Statu s: Final resul t Abnor mal: No Resul ting Lab: [facility] [address] [facility] [address] Tel: CULTU RE ----- ----- ----- --- No growt h in 1 day (dete ction level of 10,00 0 colon ies / ml.) Not Available [facility] (Lab) [address] [place], [address], 06/19/2024 22:46:36 05/21/20 24 05/21/2024 US, obste tric, 1st trime ster No observ ation record ed. [email or web address] [address], [place], [address], 05/24/2024 21:39:41 06/18/19 25 06/18/2024 US, obste tric, nucha l trans lucen cy No observ ation record ed. nba [place] [address], [place], [address], 06/18/2024 17:53:02 06/18/19 25 06/18/2024 US, obste tric, nucha l trans lucen cy No observ ation record ed. [email or web address] [address], [place], [address], 06/19/2024 21:22:07 Result Notes None recorded. Problems Name Problem SNOMED Code Status Onset Date Resolution Date Notes Provider Name and Address Organization Details Recorded Time Hypothyro idism 20938879 Active testing Blanca Pierre CNM [address], [place], [address], [facility] 5 13:35:15 Mixed anxiety and depressiv e disorder 847414203 Active 2023 Brenda casey, [facility] 4 15:03:58 40133923 Active 2024 Brenda casey, [facility] 5 12:36:08 Obesity 657553619 Active bASA Blanca Pierre CNM [address], [place], [address], [facility] 5 13:35:01 Hypothyro idism 82562928 Active testing Blanca Pierre CNM [address], [place], [address], [facility] 5 13:35:15 History of vertebral fracture 794748899 Active as a child, no permanent hardware CAROLINA Colon [address], [place], [address], [place] [facility] 13:35:49 Problem Notes None recorded. Procedures Surgical History Date Name Laterality Status Provider Name and Address Organization Details Recorded Time 4 Date of Last Pap Smear completed Brenda Darby [facility] 05/21/2024 15:02:57 5 [facility] 06/18/2024 12:07:52 Imaging Results Imaging Date Name Status LastModified by Organization Details LastModified Time 05/21/2024 US, obstetric, 1st trimester completed [email or web address] [address], [place], [address], 05/24/2024 21:39:41 06/18/2024 US, obstetric, nuchal translucency completed [facility] [address], [place], [address], 06/18/2024 17:53:02 06/18/2024 US, obstetric, nuchal translucency completed [email or web address] [address], [place], [address], 06/19/2024 21:22:07 Procedure Notes None recorded. Medical Equipment None Reported. Allergies No known drug allergies Medications Name Sig Start Date Stop Date Status Note LastModified by Organization Details LastModified Time cyclobenzap rine 10 mg tablet TAKE 1 TABLET BY MOUTH AT BEDTIME NEEDED 05/21 completed Not Available Not Available Not Available azithromyci n 250 mg tablet 05/21 completed Not Available Not Available Not Available prednisone 20 mg tablet TAKE 2 TABLETS BY MOUTH DAILY FOR 3 DAYS 05/21 completed Not Available Not Available Not Available levothyroxi ne 75 mcg tablet TAKE 1 TABLET BY MOUTH EVERY DAY DIRECTED active Not Available Not Available No t Available levothyroxi ne 50 mcg tablet 06/18 completed Not Available Not Available Not Available ondansetron 4 mg disintegrat ing tablet DISSOLVE 1 TABLET ON THE TONGUE DAILY FOR 3 DAYS 05/21 completed Not Available Not Available Not Available levothyroxi ne 06/18 completed Not Available Not Available Not Available Paxlovid 300 mg (150 mg x 2)-100 mg tablets in a dose pack TAKE 3 TABLETS BY MOUTH TWICE DAILY 05/21 completed Not Available Not Available Not Available Vitals Date Recorded Body height Body mass index (BMI) Body weight Systolic blood pressure Diastolic blood pressure Provider Name and Address Organization Details Last Updated DateTime 05/21/2024 165.1 cm 42.8 kg/m2 356129.2 4 g 106 mm[Hg] 62 mm[Hg] Brenda Darby [facility] 4 15:02:13 Date Recorded Body height Body mass index (BMI) Body weight Systolic blood pressure Diastolic blood pressure Provider Name and Address Organization Details Last Updated DateTime 06/18/2024 165.1 cm 42.6 kg/m2 509500.6 5 g 114 mm[Hg] 69 mm[Hg] Brenda Darby [facility] 5 12:06:01 Social History Question Answer Notes LastModified by Organizat ion Details LastModified Time Do You Have An Advance Directive? No [email or web address] Information not available 05/21/2024 What Is Your Level Of Alcohol Consumption? None [email or web address] Information not available 05/21/2024 How Many Years Have You Consumed Alcohol? 10 [email or web address] Information not available 06/18/2024 Are You Blind Or Do You Have Difficulty Seeing? No [email or web address] Information not available 05/21/2024 What Is Your Level Of Caffeine Consumption? Occasional [email or web address] Information not available 05/21/2024 How Much Tobacco Do You Chew? None [email or web address] Information not available 05/21/2024 In The 14 Days Before Symptom Onset, Have You Had Close Contact With A Laboratory-confir [facility]-19 While That Case Was Ill? No [email or web address] Information not available 05/21/2024 In The 14 Days Before Symptom Onset, Have You Had Close Contact With A Person Who Is Under Investigation For COVID-19 While That Person Was Ill? No [email or web address] Information not available 05/21/2024 Have You Been To An Area Known To Be High Risk For COVID-19? No [email or web address] Information not available 05/21/2024 Are You Deaf Or Do You Have Serious Difficulty Hearing? No [email or web address] Information not available 05/21/2024 What Type Of Diet Are You Following? REGULAR Information not available 05/21/2024 What Is The Highest Grade Or Level Of School You Have Completed Or The Highest Degree You Have Received? 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 No Information not available 05/21/2024 Do You Use Protection During Sex? Usually [email or web address] Information not available 05/21/2024 Do You Use Your Seat Belt Or Car Seat Routinely? Yes [email or web address] Information not available 05/21/2024 Do You Have Smoke And Carbon Monoxide Detectors In Your Home? Yes [email or web address] Information not available 05/21/2024 How Much Tobacco Do You Smoke? No Information not available 05/21/2024 Do You Feel Stressed (tense, Restless, Nervous, Or Anxious, Or Unable To Sleep At Night)? TM85416-0 [email or web address] Information not available 06/18/2024 Do You Use Any Illicit Or Recreational Drugs? Yes [email or web address] Information not available 05/21/2024 Do You Use Sunscreen Routinely? No Information not available 06/18/2024 Have You Used IV Drugs? No [email or web address] Information not available 05/21/2024 Sex: Unknown Functional Status Question Answer Note LastModified by Organization D etails LastModified Time Are you able to walk? YESWOREST [email or web address] Information not available 05/21/2024 What is your exercise level? Moderate Information not available 05/21/2024 Mental Status None recorded. Family History Relationship Description Onset Age of this Age Resolved Age Notes LastModified by Organization Details LastModified Time Mother Disorder of thyroid gland Not available 06/18 12:06:42 Maternal Aunt Disorder of thyroid gland [email or web address] Not available 06/18 12:06:42 Maternal Grandmother Disorder of thyroid gland [email or web address] Not available 05/21 15:02:56 Medical History Condition Response Depression/ depression Y Gynecological History Statement/Question Response Abnormal Pap N Date of Last Mammogram Date of LMP 03/20/2024 N On BCP's at Conception? N STIs/STDs N Was last menstrual period normal Y HPV Vaccine N Duration of Flow (days) 4 Current Control Method Date of control 06/26/2009 Date of Last Colonoscopy Frequency of Cycle (Q days) 23 Sexually Active? Y None Date of DEXA bone scan Age of first menstrual cycle 9 Date of Last Pap Smear 04/03/2024 Sexual Problems? N LMP Unknown Desired Control Method None N Obstetrics History GPAL:G 1 P 0 0 0 0 Type Value Living 0 Total 1 Past Encounters Encounter ID Performer Location Encounter Start Date Encounter Closed Date Diagnosis/Indication Diagnosis SNOMED-CT Code Diagnosis ICD10 Code Diagnosis Note [id number] Maggi Buck [place] [address] [place] [address] 05/21/2024 12:46:37 05/21/2024 13:54:24 [id number] [facility] [address] [place] [address] 05/21/2024 12:47:07 05/21/2024 15:28:27 Venereal disease screening 088825005 Z11.3 Hypothyroidism 62468692 E03.9 Amenorrhea 23963055 N91. 2 [facility] [place] [id number] [facility] [address] [place] [address] 06/18/2024 10:47:35 06/18/2024 11:58:48 screening 292479563 Z36.82 Z3A.12 [id number] Blanca Pierre [facility] [address] [place] [address] 06/18/2024 10:47:50 06/18/2024 13:58:43 Routine care 268817055 Z34.90 Gestation period, 12 weeks 87257102 Z3A.12 Health Concerns Section Related Observation LastModified by Organization Detai ls LastModified Time None Recorded Concern Status LastModified by Organization Details LastModified Time None Recorded Advance Directives Directive N: Payers Encounter Date Sequence Insurance Name Policy Number Policy Gaona Covered Member ID Gaona Member ID Guarantor Name 05/21/2024 1 [place] [id number] 1 [place] [id number] Bakari Dublo 05/21/2024 1 [place] [id number] 1 She[place] [id number] Bakari Dublo 06/18/2024 1 [place] [id number] 1 Sheba [place] [id number] Bakari Dublo 06/18/2024 1 [place] [id number] 1 Sheba Cee [id number] Bakari Dublo Notes Date Note Type Note Provider Name and Address Organization Details Recorded Time 05/21/2024 text/html having regular cycles, then amenorrhea +UPThx hypothyroidhx vaping, does not currentlypap done 04/18 per ptexcited about pregnancyengaged and plans to next year Blanca Pierre, DIR[facility] [address], [place], [address], [facility] 05/21/2024 15:10:37 OBGyn Episode Ob Episode Information Episode Created Date Number of Fetuses Patient Bloodtype Patient rh Status Prepregnancy Weight lbs Domestic Partner Domestic Partner Phone Father Name Rf Microwave Engineer Status 06/18/19 25 1 O Positive 257 Bakari Duble OPEN Fetus Data First Name Last Name Admitted to NICU Weight (g) Sex Living Outcome Pediatric Complications Fetus ID Race Codes Race Delivery Type [id number] Problems Problem Notes Problem Name Start Date End Date Resolution Snomed Code Not e Obesity 085137996 bASA Hypothyroidism 49459366 anten atal testing History of vertebral fracture 293337777 as a child, no permanent hardware Yusef Calculation Initial Yusef Date Initial Exam Date Initial Exam Provider Initial Ultrasound Date Last Menstrual Period Date Ultra Sound Weeks Gestation 12/25/2024 05/21/2024 Blanca Guidry 05/21/2024 03/20/2024 9 Eighteen To Twenty Week Yusef Update Ultra Sound Date Fundal Height At Umbil Quickening Date Ultra Sound Latest Weeks Gestation Final Yusef Confirmed By Final Yusef Confirmed Date Final Yusef Date Ultra Sound Latest Days Gestation 0 12/26/19 25 0 Pre- Flowsheet Flowsheet Date 06/18/2024 Arndt Score Blood Edema Fundus Height Fundus Units Glucose Ketones Leukocytes Nitrite Labor Signs Protein Cervic Dilation Cervic Effacement Cervic Station neg none none trace Type Weight in lbs Pre/Post Dialysis Refused Weight [id number] BP Diastolic BP Location Tested BP Systolic BP Type 69 114 Fetus Heart Rate Present Fetus Movement A No Comments Patient states that is havin g some constipation, nausea and vomiting. ok for miralax, rpt tsh today reviewed hx, US, history of low vertebral fracture as a child, begin routine care Menstrual History Last Menstrual Date Menses Monthly On Bcp Conception Prior Menses Frequency Hcg Plus Date Menarche Onset Age 1003/20/2024 Delivery Information Delivery Date Delivery Type Labor Anesthesia Weeks Gestation Incision Type Labor Labor Length Hrs Delivered By Post Complications Tubal Sterilization Discharge Date Comments Discharge Information Feeding Method Contraceptive Method Maternal HG B and HCT Levels
--- NOTE | 2024-07-06 18:11 | ED_ITS ---
HPI - Nausea/Vomiting/Diarrhea General Chief complaint: Nausea/Vomiting/Diarrhea Stated complaint: Nausea vomitting Time Seen by Provider: 07/06/24 18:10 Source: patient and family Mode of arrival: ambulatory Limitations: no limitations History of Present Illness HPI Narrative: 28 years old white female came to the ED by private car complaining of nausea, vomiting and diarrhea started yesterday. had similar symptoms for the last 2 days. Patient is 14 weeks , 1 para 0 0. Patient denies any fever, vaginal bleeding or discharge or urinary symptoms. Related Data Home Medications ?Medication ?Instructions ?Recorded ?Confirmed ?Last Taken ?Type levothyroxine 50 mcg capsule 50 mcg PO DAILY 01/08/22 07/01/23 06/29/23 History (Tirosint) norgestimate-ethinyl estradiol 1 tablet PO DAILY 01/08/22 07/01/23 06/29/23 History 0.18 mg/0.215mg/0.25mg-35 mcg(28)tablet (Tri-Estarylla) albuterol sulfate 90 mcg/actuation 2 puff inhalation Q6H PRN 07/01/23 07/01/23 Unknown History aerosol inhaler (ProAir HFA) shortness of breath or wheezing azithromycin 250 mg tablet See Rx Instructions .Route .COMPLEX 07/01/23 07/01/23 Unknown History (Zithromax) Allergies Allergy/AdvReac Type Severity Reaction Status Date / Time No Known Allergies Allergy Verified 07/06/24 18:08 Review of Systems 2 Review of Systems: All systems reviewed & are unremarkable except as noted in HPI and below PMFSH Past Medical History Medical History Nausea and vomiting Family History Family History Father Diabetes mellitus Hypertension Depression Mother Depression Social History Social History Smoking status: Never smoker Alcohol intake: current Substance use: current Living arrangements: with family Gender identity (if verbalized by the patient): Female Exam 2 Narrative: General appearance: Well-developed, well-nourished Skin: Normal color Head: Normocephalic, nontraumatic Eyes: Clear conjunctiva ENT: Oropharynx normal, ears normal, nose normal Neck: Supple, nontender Chest and respiratory: Airway patent, no respiratory distress, no accessory muscle use Heart: Regular rate/rhythm Abdomen: Soft, nontender, no organomegaly, quiet bowel sounds Vascular: Normal peripheral pulses, normal capillary refill. Musculoskeletal: Normal range of motion, nontender back Neurologic: Alert and oriented ?3, TEAROOM HOSTESS is normal as tested, no gross motor deficit Course Vital Signs Vital signs: Vital Signs Temperature 36.4 C 07/06/24 18:08 Pulse Rate 78 07/06/24 18:08 Respiratory Rate 18 07/06/24 18:08 Blood Pressure 133/76 07/06/24 18:08 Pulse Oximetry 100 07/06/24 18:08 Oxygen Delivery Room Air 07/06/24 18:08 Temperature 36.4 C 07/06/24 18:08 Pulse Rate 73 07/06/24 18:46 Respiratory Rate 16 07/06/24 18:46 Blood Pressure 100/88 07/06/24 18:46 Pulse Oximetry 98 07/06/24 18:46 Oxygen Delivery Room Air 07/06/24 18:11 MDM - Nausea/Vomiting/Diarrhea MDM Narrative Medical decision making narrative: Patient presents with nausea, vomiting and diarrhea, Vital signs are stable Physical examination unremarkable Differential diagnosis viral gastroenteritis, hyperemesis gravidarum, electrolyte imbalance, dehydration, urinary tract infection Blood workup today includes CBC, CMP, lipase showed Urinalysis showed Patient tested negative for COVID, flu and RSV Differential Diagnosis Differential diagnosis: Likely gastroenteritis, drug-induced nausea and vomiting and dehydration Medical Records Attestation: I reviewed the patient's medical records. Lab Data Attestation: I reviewed the patient's lab results. 07/06/24 18:21 07/06/24 18:21 Labs: Lab Results 07/06/24 07/06/24 Range/Units 18:21 18:29 WBC 8.3 (4.8-10.8) K/mm3 RBC 3.99 L (4.20-5.40) M/mm3 Hgb 11.5 L (12.0-15.0) g/dL Hct 35.4 (35.0-49.0) % MCV 88.7 (78.0-102.0) fL MCH 28.8 (27.0-31.0) pg MCHC 32.5 (32-36) g/dL RDW 13.2 (11.6-14.4) % Plt Count 198 (150-420) K/mm3 MPV 11.0 (9.2-11.8) fl Immature Gran % (Auto) 0.6 H (0.0-0.0) % Neut % (Auto) 77.0 H (50.0-70.0) % Lymph % (Auto) 12.5 L (18.0-42.0) % [place] % (Auto) 8.6 (2.0-11.0) % Eos % (Auto) 1.1 (1.0-6.0) % Baso % (Auto) 0.2 (0.0-1.0) % Lymph # (Auto) 1.03 L (1.10-4.50) K/mm3 [place] # (Auto) 0.71 (0.10-0.90) K/mm3 Eos # (Auto) 0.09 (0.02-0.50) K/mm3 Baso # (Auto) 0.02 (0.00-0.10) K/mm3 Abs Immat Gran (auto) 0.05 H (0.00-0.00) K/mm3 Absolute Neuts (auto) 6.36 (1.70-7.20) K/mm3 Absolute Nucleated RBC 0.00 (0.00-0.00) K/mm3 Nucleated RBC % 0.0 (0-0.0) % Sodium 139 (136-145) mmol/L Potassium 3.5 (3.5-5.1) mmol/L Chloride 102 (98-108) mmol/L Carbon Dioxide 28 (21-32) mmol/L Anion Gap 9 (4-12) mmol/L BUN 5 L (7-18) mg/dL Creatinine 0.65 (0.55-1.02) mg/dL Estim Creat Clear Calc 143 ml/min Estimated GFR > 60 (59 - ) Glucose 93 (70-99) mg/dL Calculated Osmolality 285 (285-295) mOsm/kg Calcium 8.7 (8.5-10.1) mg/dL Total Bilirubin 0.5 (0.00-1.00) mg/dL AST 11 L (15-37) U/L ALT 20 (14-59) U/L Alkaline Phosphatase 59 (46-116) U/L Total Protein 7.0 (6.4-8.2) g/dL Albumin 3.2 L (3.4-5.0) g/dL Lipase 28 (16-77) U/L Urine Color Light yellow (Yellow) Urine Appearance Sl cloudy A (Clear) Urine pH 7.5 (5.0-8.0) Ur Specific [place] 1.015 (1.010-1.020) Urine Protein Negative (Negative) Urine Glucose (UA) Negative (Negative) Urine Ketones Negative (Negative) Ur Blood (Man) Negative (Negative) Urine Nitrate Negative (Negative) Urine Bilirubin Negative (Negative) Urine Urobilinogen 4.0 H (0.2-1.0) mg/dL Leukocyte Esterase Rfl Negative (Negative) RAMÓN/UL Urine RBC 0-2 (0-2) /hpf Urine WBC 0-3 (0-3) /hpf Ur Squamous Epith Cells Few (Few) /hpf Amorphous Sediment Few H (None) Urine Bacteria 1+ H (None) /hpf Influenza A (RT-PCR) Negative (Negative) Influenza B (RT-PCR) Negative (Negative) RSV (RT-PCR) Negative (Negative) SARS-CoV-2 RNA (RT-PCR) Negative (Negative) Critical Care Time Critical Care Time Critical Care Time: No Discharge Plan Discharge Clinical Impression: Gastroenteritis Patient Disposition: Home, Self-Care Condition: Improved Instructions: Gastroenteritis (ED) Additional Instructions: Return if symptoms are worsening , call your family physician for appointment, take Tylenol as as needed for aches and pain, continue home medications. Patient Language: Mohawk Prescriptions: New ondansetron HCl 4 mg tablet 4 mg PO Q4H Qty: 10 0RF Rx Instructions: 1st dose 1-2 hr before radiation No Action prednisone 20 mg tablet 40 mg PO DAILY 3 Days Qty: 6 0RF azithromycin [Zithromax] 250 mg tablet See Rx Instructions .ROUTE .COMPLEX Rx Instructions: For 250 mg dose pack: take 500 mg today (day 1), then 250 mg for 4 days (days 2-5) albuterol sulfate [ProAir HFA] 90 mcg/actuation HFA aerosol inhaler 2 puff inhalation Q6H PRN (Reason: shortness of breath or wheezing) ondansetron 4 mg tablet,disintegrating 4 mg PO DAILY 3 Days Qty: 3 0RF norgestimate-ethinyl estradiol [Tri-Estarylla] 0.18/0.215/0.25 mg-35 mcg (28) tablet 1 tablet PO DAILY levothyroxine [Tirosint] 50 mcg capsule 50 mcg PO DAILY Follow-up/Referrals: Dudley Dejesus MD [Primary Care Provider] - Stand Alone Forms: Work/School Release IP
[2024-07-06] MEDS: ONDANSETRON INJ 4 MG/2 ML VIAL 8 MG IV PUSH (18:21)
[2024-07-06] MEDS: SODIUM CHLORIDE 0.9% IV 2,000 ML 999 ML IV CONT (18:22)
[2024-07-06 18:27] LABS: Basophils Absolute Auto 0.02 K/mm3 (0.00-0.10); Basophils Percent Auto 0.2 % (0.0-1.0); Eosinophils Absolute Auto 0.09 K/mm3 (0.02-0.50); Eosinophils Percent Auto 1.1 % (1.0-6.0); Hematocrit 35.4 % (35.0-49.0); Hemoglobin 11.5 g/dL (12.0-15.0); Immature Granulocyte Absolute 0.05 K/mm3 (0.00-0.00); Immature Granulocyte Percent A 0.6 % (0.0-0.0); Lymphocytes Absolute Auto 1.03 K/mm3 (1.10-4.50); Lymphocytes Percent Auto 12.5 % (18.0-42.0); Mean Corpuscular HGB Conc 32.5 g/dL (32-36); Mean Corpuscular Hemoglobin 28.8 pg (27.0-31.0); Mean Corpuscular Volume 88.7 fL (78.0-102.0); Monocytes Absolute Auto 0.71 K/mm3 (0.10-0.90); Monocytes Percent Auto 8.6 % (2.0-11.0); Neutrophils Absolute Auto 6.36 K/mm3 (1.70-7.20); Platelet Count Result 198 K/mm3 (150-420); Red Blood Count 3.99 M/mm3 (4.20-5.40); Red Cell Distribution Width 13.2 % (11.6-14.4); White Blood Count 8.3 K/mm3 (4.8-10.8)
[2024-07-06 18:32] LABS: Add Urine Microscopic? YES; Appearance Urine Sl Cloudy (Clear); Bilirubin Urine Negative (Negative); Blood Urine Negative (Negative); Color Urine Light Yellow (Yellow); Glucose Urine UA Negative (Negative); Ketones Urine Negative (Negative); Leukocyte Esterase Ur Negative LEU/UL (Negative); Nitrate Urine Negative (Negative); Protein Urine Negative (Negative); Specific Grav Ur 1.015 (1.010-1.020); pH Urine 7.5 (5.0-8.0)
[2024-07-06 18:44] LABS: Amorphous Sediment Urine Few; Bacteria Urine 1+ /hpf; RBC Urine 0-2 /hpf (0-2); Squamous Epithelial Cell Urine Few /hpf (Few); WBC Urine 0-3 /hpf (0-3)
[2024-07-06 18:45] LABS: Alanine Aminotransferase 20 U/L (14-59); Albumin Level 3.2 g/dL (3.4-5.0); Alkaline Phosphatase 59 U/L (46-116); Anion Gap 9 mmol/L (4-12); Aspartate Amino Transferase 11 U/L (15-37); Bilirubin,Total 0.5 mg/dL (0.00-1.00); Blood Urea Nitrogen 5 mg/dL (7-18); Calcium 8.7 mg/dL (8.5-10.1); Carbon Dioxide 28 mmol/L (21-32); Chloride 102 mmol/L (98-108); Estimated CRCL calculation 143 ml/min; Estimated Glomerular Filt Rate > 60; Glucose 93 mg/dL (70-99); Lipase 28 U/L (16-77); Osmolality Calculated 285 mOsm/kg (285-295); Potassium 3.5 mmol/L (3.5-5.1); Sodium 139 mmol/L (136-145)
[2024-07-06 19:03] LABS: SARS-CoV-2 RNA PCR Negative (Negative)
[2024-07-06 19:05] LABS: Influenza A QL RT-PCR Negative (Negative); Influenza B QL RT-PCR Negative (Negative); RSV RNA, RT-PCR Negative (Negative)
--- NOTE | 2024-07-06 19:13 | PC.NURSE ---
informed pt of change of shift and plan of care. voiced understanding
== END 2024-07-06 20:20 | disposition home or self-care (01) ==
PROVIDERS: Emergency Provider Emergency Medicine; PCP Internal Medicine
DX: K52.9 Noninfective gastroenteritis and colitis, unspecified (principal); Z20.822 Contact with and (suspected) exposure to COVID-19
CPT/HCPCS: 36415; 80053; 81001; 83690; 85025; 87637; 96361; 96374; 99284; J2405; J7030

== ENCOUNTER 2024-11-01 15:17 | Observation (INO) | payer BC, SELFPAY ==
[2024-11-01] VITALS (39 sets, daily range): BP systolic 92–111; BP diastolic 46–68; PULSE 70–104; O2SAT 97–100; BMI 41.8
[2024-11-01 16:12] LABS: Add Urine Microscopic? NO; Appearance Urine Clear (Clear); Bilirubin Urine Negative (Negative); Blood Urine Negative (Negative); Color Urine Yellow (Yellow); Glucose Urine UA Negative (Negative); Ketones Urine Negative (Negative); Leukocyte Esterase Ur Negative LEU/UL (Negative); Nitrate Urine Negative (Negative); Protein Urine Negative (Negative); Specific Grav Ur 1.006 (1.001-1.035); Urobilinogen Urine 0.2 mg/dL (<2.0); pH Urine 7.5 (5.0-9.0)
--- NOTE | 2024-11-01 16:13 | LDADM ---
This patient, Sheba Mike, was admitted to [facility] on 11/01/24 at 15:17. Plans for labor, pain management and were discussed with patient. Patient/family oriented to hospital policies and general routines including ID bracelet, bed and alarms, visiting hours, pain management, procedures, bathroom and other care routines, personal items, smoking policy, room service/diet and guest tray routines, infant security routines, and visiting hours. Patient/Family are encouraged to report perceived risks to care and to ask questions if they do not understand what they are told or what they should do. See [facility] for further documentation.
--- OUTSIDE RECORDS SUMMARY | 2024-11-01 16:17 | XMS_ITS | Data Portability ---
Author Organization [facility] [place] Address [address] [place] [address] Care Team Providers Care Drum Attendant Name Role Phone STEFANIE NASH Primary Care Provider [phone] Assessment Encounter Date Assessment Date Assessment LastModified by Organization Details LastModified Time 09/17/2024 09/17/2024 Patient is __25_weeks . Discussed plan. [email or web address] Not available 09/19/2024 17:42:08 10/12/2024 10/12/2024 Patient is ___weeks . Discussed plan. [email or web address] Not available 10/12/2024 11:17:43 10/29/2024 10/29/2024 Patient is __31_weeks . Discussed plan. Not available 10/29/2024 12:25:24 Plan of Treatment Reminders Order Date Submit Date Provider Last Modified By Organization Details Last Modified Time Details Appointments OB ROUTINE 2024 10:15A M Blanca Pierre CNM Not available Not available Not available NST 2024 02:30P M NST SCHEDULE Not available Not available Not available U/S OB GROWTH 2024 03:00P M ULTRASOUND Not available Not available Not available OB ROUTINE 2024 03:45P M Blanca Pierre CNM Not available Not available Not available U/S OB BPP 2024 10:00A M ULTRASOUND Not available Not available Not available NST 2024 10:30A M NST SCHEDULE Not available Not available Not available OB ROUTINE 2024 11:15A M Blanca Pierre CNM Not available Not available Not available NST 2024 02:30P M NST SCHEDULE Not available Not available Not available U/S OB BPP 2024 03:00P M ULTRASOUND Not available Not available Not available OB ROUTINE 2024 03:45P M Blanca Sampsongle, CNM Not available Not available Not available U/S OB BPP 2024 02:30P M ULTRASOUND Not available Not available Not available NST 2024 03:00P M NST SCHEDULE Not available Not available Not available OB ROUTINE 2024 03:30P M Blanca Sampsongle, CNM Not available Not available Not available U/S OB BP 2024 02:30P M ULTRASOUND Not available Not available Not available NST 2024 03:00P M NST SCHEDULE Not available Not available Not available OB ROUTINE 2024 03:30P M Blanca Sampsongle, CNM Not available Not available Not available U/S OB [facility] [place] 2024 02:30P M ULTRASOUND Not available Not available Not available NST 2024 03:00P M NST SCHEDULE Not available Not available Not available OB ROUTINE 2024 03:30P M Blanca Sampsongle, CNM Not available Not available Not available Lab None recorde d. Referral None recorde d. Procedures None recorde d. Surgeries None recorde d. Imaging US, obstetr ic, follow- up 2024 025 [email or web address] [place], [address], [place], [address], 10/12/2024 21:37:50 US, [facility] ic, follow- up 2024 025 KM [place], [address], [place], [address], 09/17/2024 17:48:33 Medication Orders None recorde d. Patient TargetsNo targets recorded. Patient InstructionsNo instructions recorded. Reason for Referral None Reported. Results Created Date Observation Date Name Description Value Unit Range Abnormal Flag Note LastModifiedBy Organization Detail LastModifiedTime 10/13/19 10/12/2024 HEMAT OCRIT (HCT) HCT 31.4 % (based on docume nted legal sex) 34.0-4 5.0 low Not Available [facility] (Lab) [address], [place], [address], 10/13/2024 14:09:45 10/13/19 25 10/12/2024 HEMOG LOBIN (HGB) HGB 9.9 g/dL (based on docume nted legal sex) 11.6-1 5.4 low Not Available [facility] (Lab) [address], [place], [address], 10/13/2024 14:09:45 10/13/19 25 10/12/2024 GTT - GESTA MARLENE L SCREE N, ACOG OB glucose, 1 hour screen 221 mg/dL 70-135 high Not Available [facility] (Lab) [address], [place], [address], 10/13/2024 14:09:46 10/13/19 25 10/12/2024 HIV 1/2 ANTIG EN/AN TIBOD Y, REFLE X CONFI RMATI ON HIV antigen/anti body Nonrea ctive nonrea ctive HIV-1 antig en and HIV-1 /HIV- 2 antib odies were not detec ellen. No labor atory evide nce of HIV infec tion. Not Available [facility] (Lab) [address], [place], [address], 10/13/2024 14:09:46 10/13/19 25 10/12/2024 RPR SCREE N, REFLE X TITER /CONF IRMAT ION RPR qualitative Nonrea ctive nonrea ctive Not Available [facility] (Lab) [address] [place], [address], 10/13/2024 14:09:47 09/18/19 25 09/20/2024 US, obste tric, follo w-up No observ ation record ed. [facility] [address], [place], [address], 09/20/2024 17:55:02 09/18/19 25 09/17/2024 US, obste tric, follo w-up No observ ation record ed. [address], [place], [address], 09/21/2024 17:38:11 10/13/19 25 10/12/2024 US, obste tric, follo w-up No observ ation record ed. [facility] [address], [place], [address], 10/12/2024 11:44:39 10/13/19 25 10/12/2024 US, obste tric, follo w-up No observ ation record ed. [email or web address] [address], [place], [address], 10/21/2024 11:04:59 Result Notes None recorded. Problems Name Problem SNOMED Code Status Onset Date Resolution Date Notes Provider Name and Address Organization Details Recorded Time Hypothyr oidism 29324986 Active testing Blanca Pierre CNM [address], [place], [address], [facility] 5 13:35:15 Mixed anxiety and depressi ve disorder 321979887 Active 2023 Brenda casey, [facility] 4 15:03:58 Pregnanc y 91947176 Active 2024 Brenda casey, [facility] 5 12:36:08 Obesity 904265896 Active bASA Blanca Pierre CNM [address], [place], [address], [facility] 5 13:35:01 Hypothyr oidism 46186203 Active testing Blanca Pierre CNM [address], [place], [address], [facility] 5 13:35:15 History of vertebra l fracture 920462327 Active as a child, no permanent hardware Blanca Pierre CNM [address], [place], [address], [facility] 5 13:35:49 Carrier of cystic fibrosis gene mutation 378540885 Active Pepper Gamboa er null, [facility] 5 12:21:26 Carrier of spinal muscular atrophy [id number] 7913099 Active Pepper Gamboa er null, [facility] 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 5 16:52:50 Body mass index 30+ - obesity 462991023 Active 2024 start nst 34 wks Brenda Darby null, [facility] 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 5 19:30:42 Gestatio nal diabetes mellitus 28718920 Active 2024 1hr gtt >200 checking BS QID DT referral faxed to [facility] 10/14 Gale casey, [facility] 5 16:18:44 Problem Notes None recorded. Procedures Surgical History Date Name Laterality Status Provider Name and Address Organization Details Recorded Time 4 Date of Last Pap Smear completed [facility] 05/21/2024 15:02:57 5 extraction of wisdom tooth completed [facility] 06/18/2024 12:07:52 Imaging Results None recorded. Procedure Notes None recorded. Medical Equipment None Reported. Allergies No known drug allergies Medications Name Sig Start Date Stop Date Status Note LastModified by Organization Details LastModified Time cyclobenzap rine 10 mg tablet TAKE 1 TABLET BY MOUTH AT BEDTIME NEEDED 05/21 completed Not Available Not Available Not Available azithromyci n 250 mg tablet 05/21 completed Not Available Not Available Not Available ondansetron HCl 4 mg tablet TAKE 1 TABLET BY MOUTH EVERY 4 HOURS X 3 DOSES. TAKE FIRST DOSE 1-2 HOURS BEFORE RADIATION 10/12 completed Not Available Not Available Not Available prednisone 20 mg tablet TAKE 2 TABLETS BY MOUTH DAILY FOR 3 DAYS 05/21 completed Not Available Not Available Not Available levothyroxi ne 75 mcg tablet TAKE 1 TABLET BY MOUTH EVERY DAY DIRECTED 2024 active Not Available Not Available Not Avai lable OneTouch Ultra Test strips TEST FOUR TIMES DAILY active Not Available Not Available No t Available levothyroxi ne 50 mcg tablet 06/18 completed Not Available Not Available Not Available ondansetron 4 mg disintegrat ing tablet DISSOLVE 1 TABLET ON THE TONGUE DAILY FOR 3 DAYS 05/21 completed Not Available Not Available Not Available levothyroxi ne 06/18 completed Not Available Not Available Not Available OneTouch Ultra2 Meter TEST FOUR TIMES DAILY active Not Available Not Available No t Available OneTouch Delica Plus Lancet 33 gauge TEST FOUR TIMES DAILY active Not Available Not Available No t Available Paxlovid 300 mg (150 mg x 2)-100 mg tablets in a dose pack TAKE 3 TABLETS BY MOUTH TWICE DAILY 05/21 completed Not Available Not Available Not Available Vitals Date Recorded Body height Body mass index (BMI) Body weight Systolic blood pressure Diastolic blood pressure Provider Name and Address Organization Details Last Updated DateTime 09/17/2024 165.1 cm 43.8 kg/m2 385748.7 9 g 106 mm[Hg] 65 mm[Hg] Brenda Darby [facility] 16:51:30 Date Recorded Body weight Body mass index (BMI) Body height Systolic blood pressure Diastolic blood pressure Provider Name and Address Organization Details Last Updated DateTime 10/12/2024 680376.7 9331 g 43.8 kg/m2 165.1 cm 104 mm[Hg] 67 mm[Hg] Brenda Darby [facility] 11:18:36 Date Recorded Body height Body mass index (BMI) Body weight Systolic blood pressure Diastolic blood pressure Provider Name and Address Organization Details Last Updated DateTime 10/29/2024 165.1 cm 44.3 kg/m2 979114.5 7 g 97 mm[Hg] 63 mm[Hg] Brenda Darby [facility] 10:10:25 Social History Question Answer Notes LastModified by Organizat ion Details LastModified Time Tobacco Smoking Status Never Smoker Brenda Darby [facility] 09/17/2024 16:52:27 Do You Have An Advance Directive? No [email or web address] Information n ot available 05/21/2024 If You Are , What Was Your Level Of Alcohol Consumption Prior To ? Occasional [email or web address] Information not available 09/17/2024 How Many Years Have You Consumed Alcohol? 10 [email or web address] Information not available 06/18/2024 Are You Blind Or Do You Have Difficulty Seeing? No [email or web address] Information n ot available 05/21/2024 What Is Your Level Of Caffeine Consumption? Occasional [email or web address] Information not available 05/21/2024 How Much Tobacco Do You Chew? None [email or web address] Information not available 05/21/2024 In The 14 Days Before Symptom Onset, Have You Had Close Contact With A Laboratory-confirm ed COVID-19 While That Case Was Ill? No [email or web address] Information n ot available 05/21/2024 In The 14 Days Before Symptom Onset, Have You Had Close Contact With A Person Who Is Under Investigation For COVID-19 While That Person Was Ill? No [email or web address] Information not available 05/21/2024 Have You Been To An Area Known To Be High Risk For COVID-19? No [email or web address] Information not available 05/21/2024 Are You Deaf Or Do You Have Serious Difficulty Hearing? No [email or web address] Information not available 05/21/2024 What Type Of Diet Are You Following? REGULAR Information n ot available 05/21/2024 What Is The Highest Grade Or Level Of School You Have Completed Or The Highest Degree You Have Received? VC36562-0 [email or web address] Information not available 05/21/2024 Are There Any Guns Present In Your Home? No [email or web address] Information not available 05/21/2024 Do You Use Protection During Sex? Usually [email or web address] Information not available 05/21/2024 Do You Use Your Seat Belt Or Car Seat Routinely? Yes [email or web address] Information not available 05/21/2024 Do You Have Smoke And Carbon Monoxide Detectors In Your Home? Yes [email or web address] Information not available 05/21/2024 How Much Tobacco Do You Smoke? No [email or web address] Information not available 05/21/2024 Do You Use Sunscreen Routinely? No [email or web address] Information not available 06/18/2024 Have You Used IV Drugs? No [email or web address] Information not available 05/21/2024 Do You Have Difficulty Walking Or Climbing Stairs? No [email or web address] Information not available 09/17/2024 Sex: Unknown Functional Status Question Answer Note LastModified by Organizat ion Details LastModified Time Do you use any illicit or recreational drugs? Yes [email or web address] Information not available 05/21/2024 What is your level of alcohol consumption? None [email or web address] Information not available 05/21/2024 Are you able to walk? YESWOREST [email or web address] Information not available 05/21/2024 Are you able to care for yourself? 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 No [email or web address] Information not available 09/17/2024 What is your exercise level? Moderate [email or web address] Information not available 05/21/2024 Mental Status Question Answer Note LastModified by Organization D etails LastModified Time Do you feel stressed (tense, restless, nervous, or anxious, or unable to sleep at night)? [id number] [email or web address] Information not available 06/18/2024 Family History Relationship Description Onset Age of this Age Resolved Age Notes LastModified by Organization Details LastModified Time Mother Disorder of thyroid gland [email or web address] Not available 06/18 12:06:42 Maternal Aunt Disorder of thyroid gland [email or web address] Not available 06/18 12:06:42 Maternal Grandmother Disorder of thyroid gland [email or web address] Not available 05/21 15:02:56 Medical History Condition Response Allergies (Food, seasonal, environmental ) N Other N Blood Transfusion N Drug/Latex Allergies/Reactions N Breast Cancer N Dermatologic Disorders N Lung Disease N Defects or Inherited Disease N Breast Problem N Gestational Diabetes N Hematologic disorders N Anesthesia Complications N History of STI N Deep Vein Thrombosis N Polycystic ovary syndrome N Anxiety Disorder Y Autoimmune disease N Arthritis N Infertility N Polyps N Acid Reflux (GERD) N History of abnormal pap N Cancer N Stroke N Varicosities N Neurologic/Epilepsy N Endometriosis N High Cholesterol N Headaches N Fibromyalgia N Kidney Disease N Heart Problems N Kidney or Bladder Problems N Thyroid Problems Y GI Problems N Eating Disorder N Anemia N Art (IVF or FET) N Psychiatric Illness N Ovarian Cancer N Diabetes N Pulmonary (TB, Asthma) N Hepatitis/Liver Disease N No Past Medical History N Eczema N Urinary Tract Infection N Abuse/Domestic Violence N Asthma N Trauma/Violence N Depression/ depression Y Heart Disease N Pre-Eclampsia N Hypertension N Osteoporosis N Thrombophilias N Gynecological History Statement/Question Response Abnormal Pap N [...] SNOMED-CT Code Diagnosis ICD10 Code Diagnosis Note [id number] Neftaly Martinez MD [place] [address] [address] 05/21/2024 12:46:37 05/21/2024 13:54:24 [id number] [facility] [address],[place] [address] 05/21/2024 12:47:07 05/21/2024 15:28:27 Venereal disease screening 262109326 Z11.3 Hypothyroidism 95948931 E03.9 Amenorrhea 93515650 N91. 2 reviewed [place] [id number] Neftaly Martinez MD [place] [address],[place] [address] 06/18/2024 10:47:35 06/18/2024 11:58:48 screening 553105772 Z36.82 Z3A.12 [id number] [facility] [address],[place] [address] 06/18/2024 10:47:50 06/18/2024 13:58:43 Routine care 604668930 Z34.90 Gestation period, 12 weeks 14488443 Z3A.12 [id number] [facility] [address] [place] [address] 07/16/2024 15:31:38 07/16/2024 16:33:27 Gestation period, 16 weeks 05672531 Z3A.16 [id number] Neftaly Martinez MD [place] [address] [place] [address] 08/13/2024 15:18:44 08/17/2024 12:02:46 screening for malformation 078374873 Z36.3 O99.210 Z3A.20 [id number] [facility] [address] [place] [address] 08/13/2024 16:13:38 08/16/2024 07:42:40 Gestation period, 20 weeks 88754833 Z3A.20 [id number] Neftaly Martinez MD [place] [address] [address] 09/17/2024 15:48:19 09/17/2024 17:26:49 Follow-up encounter 427865261 Z36.2 O35.EXX0 O43.102 Z3A.25 [id number] [facility] [address],[place] [address] 09/17/2024 15:49:13 09/20/2024 00:19:22 Gestation period, 25 weeks 15530949 Z3A.25 [id number] Neftaly Martinez MD [place] [address] [address] 10/12/2024 10:14:01 10/12/2024 11:00:32 Abnormal placenta affecting management of mother 48966864 O43.193 O99.210 O35.EXX0 Z3A.29 [id number] Blanca Pierre [facility] [address],[place] [address] 10/12/2024 10:14:37 10/12/2024 11:47:39 Gestation period, 29 weeks 42769549 Z3A.29 [id number] [facility] [address],[place] [address] 10/29/2024 09:39:09 10/29/2024 12:27:14 Gestation period, 31 weeks 87752610 Z3A.31 Health Concerns Section Related Observation LastModified by Organization Detai ls LastModified Time None Recorded Concern Status LastModified by Organization Details LastModified Time None Recorded Advance Directives Directive N: Payers Encounter Date Sequence Insurance Name Policy Number Policy Gaona Covered Member ID Gaona Member ID Guarantor Name 09/17/2024 1 KHANH DANIELS (O) [id number] 1 Sheba Mike [id number] Sheba Cee 09/17/2024 1 [place] [id number] 1 Sheba Cee [id number] Sheba Cee 10/12/2024 1 [place] [id number] 1 Sheba Cee [id number] Sheba Damar 10/12/2024 1 [place] [id number] 1 Sheba Damar [id number] Sheba Damar 10/29/2024 1 [place] [id number] 1 Sheba Damar [id number] Sheba Damar OBGyn Episode Ob Episode Information Episode Created Date Number of Fetuses Patient Bloodtype Patient rh Status Prepregnancy Weight lbs Domestic Partner Domestic Partner Phone Father Name Car Rental Sales Assistant Status 06/18/19 25 1 O Positive 257 Bakari Duble OPEN Fetus Data First Name Last Name Admitted to NICU Weight (g) Sex Living Outcome Pediatric Complications Fetus ID Race Codes Race Delivery Type [id number] Problems Problem Notes 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 Low risk fetus. Pt discussing genetic counseling and partner testing with SO. MK, RNMild right pyelectasisDBL left renal artery Problem Name Start Date End Date Resolution Snomed Code Not e Obesity 390558469 bASA Dilatation of renal pelvis 259425364 Marginal insertion of umbilical cord 06521410 growth Q 4 Carrier of spinal muscular atrophy 832887533775789718 Carrier of cystic fibrosis gene mutation 337523531 Hypothyroidism 91833132 anten atal testing History of vertebral fracture 906795042 as a child, no permanent hardware Gestational diabetes mellitus 10/14/2024 94303583 1hr gtt >200 checking BS QID DT referral faxed to [facility] 10/14 Yusef Calculation Initial Yusef Date Initial Exam [...] Latest Days Gestation 0 12/26/19 25 0 Pre-karely Flowsheet Flowsheet Date 06/18/2024 Arndt Score Blood Edema Fundus Height Fundus Units Glucose Ketones Leukocytes Nitrite Labor Signs Protein Cervic Dilation Cervic Effacement Cervic Station neg none none trace Type Weight in lbs Pre/Post Dialysis Refused Weight 256.887994360807 BP Diastolic BP Location Tested BP Systolic BP Type 69 114 Fetus Heart Rate Present Fetus Movement A No Comments Patient states that is havin g some constipation, nausea and vomiting. ok for miralax, rpt tsh today reviewed hx, US, history of low vertebral fracture as a child, begin routine care Flowsheet Date 07/16/2024 Arndt Score Blood Edema Fundus Height Fundus Units Glucose Ketones Leukocytes Nitrite Labor Signs Protein Cervic Dilation Cervic Effacement Cervic Station neg none Type Weight in lbs Pre/Post Dialysis Refused 254.841157705892 BP Diastolic BP Location Tested BP Systolic BP Type 65 103 Fetus Heart Rate Present Fetus Movement A Yes Comments Patient states that is havin g some right leg numbness and acid reflux. rec chiropractor or massage, ?FM, plan anatomy for next visit rpt tsh at next visit Flowsheet Date 08/13/2024 Arndt Score Blood Edema Fundus Height Fundus Units Glucose Ketones Leukocytes Nitrite Labor Signs Protein Cervic Dilation Cervic Effacement Cervic Station Type Weight in lbs Pre/Post Dialysis Refused BP Diastolic BP Location Tested BP Systolic BP Type Fetus Heart Rate Present Fetus Movement Comments Flowsheet Date 08/13/2024 Arndt Score Blood Edema Fundus Height Fundus Units Glucose Ketones Leukocytes Nitrite Labor Signs Protein Cervic Dilation Cervic Effacement Cervic Station neg none Type Weight in lbs Pre/Post Dialysis Refused 257.390679761232 BP Diastolic BP Location Tested BP Systolic BP Type 66 108 Fetus Heart Rate Present Fetus Movement A Yes Comments anatomy incomplete, Patient states that is having some leg numbness and discharge. Flowsheet Date 09/17/2024 Arndt Score Blood Edema Fundus Height Fundus Units Glucose Ketones Leukocytes Nitrite Labor Signs Protein Cervic Dilation Cervic Effacement Cervic Station Type Weight in lbs Pre/Post Dialysis Refused BP Diastolic BP Location Tested BP Systolic BP Type Fetus Heart Rate Present Fetus Movement Comments Flowsheet Date 09/17/2024 Arndt Score Blood Edema Fundus Height Fundus Units Glucose Ketones Leukocytes Nitrite Labor Signs Protein Cervic Dilation Cervic Effacement Cervic Station neg none Type Weight in lbs Pre/Post Dialysis Refused Weight 263.671863101487 BP Diastolic BP Location Tested BP Systolic BP Type 65 106 Fetus Heart Rate Present Fetus Movement A Yes Comments Patient is having some disch arge.anatomy complete dbl renal artery, mild pyelectasis, rpt4 weeks gct and tsh at next visit, education and precautions Flowsheet Date 10/12/2024 Arndt Score Blood Edema Fundus Height Fundus Units Glucose Ketones Leukocytes Nitrite Labor Signs Protein Cervic Dilation Cervic Effacement Cervic Station Type Weight in lbs Pre/Post Dialysis Refused BP Diastolic BP Location Tested BP Systolic BP Type Fetus Heart Rate Present Fetus Movement Comments Flowsheet Date 10/12/2024 Arndt Score Blood Edema Fundus Height Fundus Units Glucose Ketones Leukocytes Nitrite Labor Signs Protein Cervic Dilation Cervic Effacement Cervic Station neg none Type Weight in lbs Pre/Post Dialysis Refused 263.853965582752 BP Diastolic BP Location Tested BP Systolic BP Type 67 104 Fetus Heart Rate Present Fetus Movement A Yes Comments Patient is having tightness, pain, nausea and vomiting. reviewed education and precautions, +FM, getting this weekend! efw 44% myrtle pyelectasis will have dr martinez review, f/u 2 weeks with 4 week US, testing for bmi Flowsheet Date 10/29/2024 Arndt Score Blood Edema Fundus Height Fundus Units Glucose Ketones Leukocytes Nitrite Labor Signs Protein Cervic Dilation Cervic Effacement Cervic Station 33 cm Type Weight in lbs Pre/Post Dialysis Refused Weight 266.076001007959 BP Diastolic BP Location Tested BP Systolic BP Type 63 97 Fetus Heart Rate Present A 146 Present Fetus Movement Comments doing well, GDM diagnosed an d reviewed blood sugars, wnl, saw development associate and doing well with diet, +FM precautions and education, ok for tdap, call for preadmit f/u 2 weeks Menstrual History Last Menstrual Date Menses Monthly [...]
[2024-11-01] MEDS: TERBUTALINE SULFATE 1 MG/ML VIAL 0.25 MG SUB-Q (17:39)
--- NOTE | 2024-11-01 18:35 | PC.NURSE ---
1838 Pt. came on to unit from ED complaining of abdominal cramping starting today at 0800. Pt rates pain 6/10 in subrapubic area. ROM plus test performed and was negative. Orders received from Blanca Pierre to give terbutaline.
[2024-11-01] MEDS: CYCLOBENZAPRINE HCL 5 MG TABLET PO (18:45)
--- NOTE | 2024-11-02 09:13 | P.PNOB_ITS ---
OB - Triage/Final Diagnosis Visit Information Date of evaluation: 11/01/24 Reason for evaluation: threatened labor Comments/Additional reasons for admission: I have assessed the risk for this patient, Sheba Mike, and determined that she would benefit from observation care. Evaluation Laboratory results: Laboratory Tests 11/01/24 15:54 Urine Color Yellow Urine Appearance Clear Urine pH 7.5 Ur Specific [place] 1.006 Urine Protein Negative Urine Glucose (UA) Negative Urine Ketones Negative Ur Blood (Man) Negative Urine Nitrate Negative Urine Bilirubin Negative Urine Urobilinogen 0.2 Leukocyte Esterase Rfl Negative Vital signs: Vital Signs - 24 hr 11/01/24 15:39 11/01/24 15:45 11/01/24 16:00 Pulse Rate 81 79 77 Blood Pressure 108/51 L 107/49 L 111/52 L Pulse Oximetry Oxygen Delivery 11/01/24 16:15 11/01/24 16:20 11/01/24 16:30 Pulse Rate 76 76 Blood Pressure 102/60 108/49 L Pulse Oximetry Oxygen Delivery Room Air 11/01/24 16:47 11/01/24 17:00 11/01/24 17:15 Pulse Rate 84 72 70 Blood Pressure 92/68 L 103/46 L 105/53 L Pulse Oximetry Oxygen Delivery 11/01/24 17:30 11/01/24 17:43 11/01/24 17:46 Pulse Rate 72 83 Blood Pressure 106/53 L 95/57 L Pulse Oximetry 100 Oxygen Delivery 11/01/24 17:48 11/01/24 17:53 11/01/24 17:58 Pulse Rate Blood Pressure Pulse Oximetry 100 100 98 Oxygen Delivery 11/01/24 18:00 11/01/24 18:03 11/01/24 18:08 Pulse Rate 92 Blood Pressure 107/57 L Pulse Oximetry 99 100 Oxygen Delivery 11/01/24 18:13 11/01/24 18:15 11/01/24 18:18 Pulse Rate 91 Blood Pressure 108/56 L Pulse Oximetry 98 100 Oxygen Delivery 11/01/24 18:23 11/01/24 18:28 11/01/24 18:30 Pulse Rate 95 Blood Pressure 108/57 L Pulse Oximetry 100 100 Oxygen Delivery 11/01/24 18:33 11/01/24 18:38 11/01/24 18:43 Pulse Rate Blood Pressure Pulse Oximetry 100 100 100 Oxygen Delivery 11/01/24 18:45 11/01/24 18:48 11/01/24 18:53 Pulse Rate 86 Blood Pressure 105/55 L Pulse Oximetry 100 99 Oxygen Delivery 11/01/24 18:58 11/01/24 19:03 11/01/24 19:08 Pulse Rate Blood Pressure Pulse Oximetry 100 99 100 Oxygen Delivery 11/01/24 19:13 11/01/24 19:18 11/01/24 19:23 Pulse Rate Blood Pressure Pulse Oximetry 97 100 99 Oxygen Delivery 11/01/24 19:28 11/01/24 19:33 11/01/24 19:38 Pulse Rate Blood Pressure Pulse Oximetry 100 99 99 Oxygen Delivery 11/01/24 19:43 Pulse Rate Blood Pressure Pulse Oximetry 100 Oxygen Delivery
== END 2024-11-01 20:00 | disposition home or self-care (01) ==
PROVIDERS: Admitting Provider Obstetrics & Gynecology; PCP Internal Medicine; Visit Provider Obstetrics & Gynecology
DX: O47.03 False labor before 37 completed weeks of gestation, third trimester (principal); Z3A.32 32 weeks gestation of pregnancy
CPT/HCPCS: 81003; 96372; A9270; G0378; G0379; J3105

== ENCOUNTER 2024-11-03 06:14 | Observation (INO) | payer BC, SELFPAY ==
--- NOTE | ~2024-11-03 | US_ITS ---
US OB limited 11/03/2024 07:49 Indication: Evaluate placenta. Spotting. Procedure: High-resolution Limited obstetrical ultrasound Comparison: No prior studies for comparison. Findings: There is a single living intrauterine in vertex presentation. heart rate is 129 BPM. Placenta is fundal/posterior without previa. The placenta is grossly normal, without sugges tion of placenta abruption. However, ultrasound is not diagnostic of abruption since acute hemorrhag e can be isoechoic to be placenta. Recommend clinical correlation. Amniotic fluid is subjectively no rmal. Impression: 1: Single living intrauterine in vertex presentation. 2: Placenta is fundal/posterior without previa. No abnormalities identified. Reviewed, dictated and finalized at location [] Impression: 1: Single living intrauterine in vertex presentation. 2: Placenta is fundal/posterior without previa. No abnormalities identified.
--- OUTSIDE RECORDS SUMMARY | 2024-11-03 06:19 | XMS_ITS | Data Portability ---
Author Organization [facility] [place] Address [address] [place] [address] Care Team Providers Care Fabric Cutter Name Role Phone STEFANIE ANSH Primary Care Provider Assessment Encounter Date Assessment Date Assessment LastModified by Organization Details LastModified Time 09/17/2024 09/17/2024 Patient is __25_weeks . Discussed plan. [email or web address] Not available 09/19/2024 17:42:08 10/12/2024 10/12/2024 Patient is ___weeks . Discussed plan. [email or web address] Not available 10/12/2024 11:17:43 10/29/2024 10/29/2024 Patient [...] available Not available Not available U/S OB [facility] 2024 02:30P M ULTRASOUND Not available Not available Not available NST 2024 03:00P M NST SCHEDULE Not available Not available Not available OB ROUTINE 2024 03:30P M Blanca Sampsongle, CNM Not available Not available Not available Lab None recorde d. Referral None recorde d. Procedures None recorde d. Surgeries None recorde d. Imaging US, obstetr ic, follow- up 2024 025 [email or web address] [place], [address], [place], [address], 10/12/2024 21:37:50 US, [facility], follow- up 2024 025 KM [place], [address], [place], [address], 09/17/2024 17:48:33 Medication Orders None recorde d. Patient TargetsNo targets recorded. Patient InstructionsNo instructions recorded. Reason for Referral None Reported. Results Created Date Observation Date Name Description Value Unit Range Abnormal Flag Note LastModifiedBy Organization Detail LastModifiedTime 10/13/19 10/12/2024 HEMAT OCRIT (HCT) HCT 31.4 % (based on docume nted legal sex) 34.0-4 5.0 low Not Available [facility] (Lab) [address], [place], [address], 10/13/2024 14:09:45 10/13/19 25 10/12/2024 HEMOG LOBIN (HGB) HGB 9.9 g/dL (based on docume nted legal sex) 11.6-1 5.4 low Not Available [facility] (Lab) [address], [place], [address], 10/13/2024 14:09:45 10/13/19 25 10/12/2024 GTT - GESTA MARLENE L SCREE N, ACOG OB glucose, 1 hour screen 221 mg/dL 70-135 high Not Available [facility] (Lab) [address], [place], [address], 10/13/2024 14:09:46 10/13/19 25 10/12/2024 HIV 1/2 ANTIG EN/AN TIBOD Y, REFLE X CONFI RMATI ON HIV antigen/anti body Nonrea ctive nonrea ctive HIV-1 antig en and HIV-1 /HIV- 2 antib odies were not detec ellen. No labor atory evide nce of HIV infec tion. Not Available [facility] (Lab) [address], [place], [address], 10/13/2024 14:09:46 10/13/19 25 10/12/2024 RPR SCREE N, REFLE X TITER /CONF IRMAT ION RPR qualitative Nonrea ctive nonrea ctive Not Available [facility] (Lab) [address] [place], [address], 10/13/2024 14:09:47 09/18/19 25 09/20/2024 US, obste tric, follo w-up No observ ation record ed. [facility] [address], [place], [address], 09/20/2024 17:55:02 09/18/19 25 09/17/2024 US, obste tric, follo w-up No observ ation record ed. [email or web address] [address], [place], [address], 09/21/2024 17:38:11 10/13/19 25 10/12/2024 US, obste tric, follo w-up No observ ation record ed. [facility] [address], [place], [address], 10/12/2024 11:44:39 10/13/19 25 10/12/2024 US, obste tric, follo w-up No observ ation record ed. [email or web address] [address], [place], [address], 10/21/2024 11:04:59 Result Notes None recorded. Problems Name Problem SNOMED Code Status Onset Date Resolution Date Notes Provider Name and Address Organization Details Recorded Time Hypothyr oidism 30306639 Active testing Blanca Pierre CNM [address], [place], [address], , P[facility] 5 13:35:15 Mixed anxiety and depressi ve disorder 224705116 Active 2023 Brenda casey, [facility] 4 15:03:58 Pregnanc y 31013007 Active 2024 Brenda casey, [facility] 5 12:36:08 Obesity 673696149 Active bASA Blanca Pierre CNM [address], [place], [address], , P.C. 5 13:35:01 Hypothyr oidism 57807509 Active testing Blanca Pierre CNM [address], [place], [address], , P.C[facility] 5 13:35:15 History of vertebra l fracture 474100453 Active as a child, no permanent hardware Blanca Pierre CNM [address], [place], [address], , P[facility] 5 13:35:49 Carrier of cystic fibrosis gene mutation 095904052 Active Pepper Gamboa er null, [facility] 5 12:21:26 Carrier of spinal muscular atrophy 29336308759 4603862 Active Pepper Gamboa er null, [facility] 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 5 16:52:50 Body mass index 30+ - obesity 844140639 Active 2024 start nst 34 wks Brenda Darby null, [facility] 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 5 19:30:42 Gestatio nal diabetes mellitus 09408462 Active 2024 1hr gtt >200 checking BS QID DT referral faxed to [facility] 10/14 Gale casey, [facility] 5 16:18:44 Problem Notes None recorded. Procedures Surgical History Date Name Laterality Status Provider Name and Address Organization Details Recorded Time 4 Date of Last Pap Smear completed [facility] 05/21/2024 15:02:57 5 extraction of wisdom tooth completed [facility] 06/18/2024 12:07:52 Imaging Results None recorded. [...] Updated DateTime 09/17/2024 165.1 cm 43.8 kg/m2 700852.7 9 g 106 mm[Hg] 65 mm[Hg] Brenda Darby [facility] 16:51:30 Date Recorded Body weight Body mass index (BMI) Body height Systolic blood pressure Diastolic blood pressure Provider Name and Address Organization Details Last Updated DateTime 10/12/2024 631852.7 9331 g 43.8 kg/m2 165.1 cm 104 mm[Hg] 67 mm[Hg] Brenda Darby [facility] 11:18:36 Date Recorded Body height Body mass index (BMI) Body weight Systolic blood pressure Diastolic blood pressure Provider Name and Address Organization Details Last Updated DateTime 10/29/2024 165.1 cm 44.3 kg/m2 651179.5 7 g 97 mm[Hg] 63 mm[Hg] Brenda Draby [facility] 10:10:25 Social History Question Answer Notes LastModified by Organizat ion Details LastModified Time Tobacco Smoking Status Never Smoker Brenda Darby [facility] 09/17/2024 16:52:27 Do You Have An Advance Directive? No [email or web address] Information n ot available 05/21/2024 If You Are , What Was Your Level Of Alcohol Consumption Prior To ? Occasional [email or web address] Information not available 09/17/2024 How Many Years Have You Consumed Alcohol? 10 [email or web address] Information not available 06/18/2024 Are You Blind Or Do You Have Difficulty Seeing? No [email or web address] Information n ot available 05/21/2024 What Is Your Level Of Caffeine Consumption? Occasional [email or web address] Information not available 05/21/2024 How Much Tobacco Do You Chew? None [email or web address] Information not available 05/21/2024 In The 14 Days Before Symptom Onset, Have You Had Close Contact With A Laboratory-confirm ed COVID-19 While That Case Was Ill? No [email or web address] Information n ot available 05/21/2024 In The 14 Days Before Symptom Onset, Have You Had Close Contact With A Person Who Is Under Investigation For COVID-19 While That Person Was Ill? No [email or web address] Information not available 05/21/2024 Have You Been To An Area Known To Be High Risk For COVID-19? No [email or web address] Information not available 05/21/2024 Are You Deaf Or Do You Have Serious Difficulty Hearing? No [email or web address] Information not available 05/21/2024 What Type Of Diet Are You Following? REGULAR [email or web address] Information n ot available 05/21/2024 What Is The Highest Grade Or Level Of School You Have Completed Or The Highest Degree You Have Received? EE14873-4 [email or web address] Information not available 05/21/2024 Are There Any Guns Present In Your Home? No Information not available 05/21/2024 Do You Use Protection During Sex? Usually [email or web address] Information not available 05/21/2024 Do You Use Your Seat Belt Or Car Seat Routinely? Yes [email or web address] Information not available 05/21/2024 Do You Have Smoke And Carbon Monoxide Detectors In Your Home? Yes [email or web address] Information not available 05/21/2024 How Much Tobacco Do You Smoke? No [email or web address] Information not available 05/21/2024 Do You Use Sunscreen Routinely? No [email or web address] Information not available 06/18/2024 Have You Used IV Drugs? No Information not available 05/21/2024 Do You Have Difficulty Walking Or Climbing Stairs? No [email or web address] Information not available 09/17/2024 Sex: Unknown Functional Status Question Answer Note LastModified by Organizat ion Details LastModified Time Do you use any illicit or recreational drugs? Yes [email or web address] Information not available 05/21/2024 What is your level of alcohol consumption? None [email or web address] Information not available 05/21/2024 Are you able to walk? YESWOREST [email or web address] Information not available 05/21/2024 Are you able to care for yourself? 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 No Information not available 09/17/2024 What is your exercise level? Moderate [email or web address] Information not available 05/21/2024 Mental Status Question Answer Note LastModified by Organization D etails LastModified Time Do you feel stressed (tense, restless, nervous, or anxious, or unable to sleep at night)? [id number] [email or web address] Information not available 06/18/2024 Family History Relationship Description Onset Age of this Age Resolved Age Notes LastModified by Organization Details LastModified Time Mother Disorder of thyroid gland [email or web address] Not available 06/18 12:06:42 Maternal Aunt Disorder of thyroid gland [email or web address] Not available 06/18 12:06:42 Maternal Grandmother Disorder of thyroid gland [email or web address] Not available 05/21 15:02:56 Medical History Condition Response Allergies (Food, seasonal, environmental ) N Other N Breast Cancer N Drug/Latex Allergies/Reactions N Blood Transfusion N Dermatologic Disorders N Lung Disease N [...] SNOMED-CT Code Diagnosis ICD10 Code Diagnosis Note [id number] Neftaly Martinez MD [place] [address] [address] 05/21/2024 12:46:37 05/21/2024 13:54:24 [id number] [facility] [address],[place] [address] 05/21/2024 12:47:07 05/21/2024 15:28:27 Venereal disease screening 235023233 Z11.3 Hypothyroidism 98777045 E03.9 Amenorrhea 55278281 N91. 2 reviewed [place] [id number] Neftaly Martinez MD [place] [address],[place] [address] 06/18/2024 10:47:35 06/18/2024 11:58:48 screening 518040909 Z36.82 Z3A.12 [id number] [facility] [address],[place] [address] 06/18/2024 10:47:50 06/18/2024 13:58:43 Routine care 374253132 Z34.90 Gestation period, 12 weeks 71758040 Z3A.12 [id number] [facility] [address] [place] [address] 07/16/2024 15:31:38 07/16/2024 16:33:27 Gestation period, 16 weeks 08095239 Z3A.16 [id number] Neftaly Martinez MD [place] [address] [place] [address] 08/13/2024 15:18:44 08/17/2024 12:02:46 screening for malformation 282742449 Z36.3 O99.210 Z3A.20 [id number] [facility] [address] [place] [address] 08/13/2024 16:13:38 08/16/2024 07:42:40 Gestation period, 20 weeks 52520364 Z3A.20 [id number] Neftaly Martinez MD [place] [address],[place] [address] 09/17/2024 15:48:19 09/17/2024 17:26:49 Follow-up encounter 543853380 Z36.2 O35.EXX0 O43.102 Z3A.25 [id number] [facility] [address],[place] [address] 09/17/2024 15:49:13 09/20/2024 00:19:22 Gestation period, 25 weeks 66753947 Z3A.25 [id number] Neftaly Martinez MD [place] [address],[place] [address] 10/12/2024 10:14:01 10/12/2024 11:00:32 Abnormal placenta affecting management of mother 29622692 O43.193 O99.210 O35.EXX0 Z3A.29 [id number] Blanca Pierre [facility] [address],[place] [address] 10/12/2024 10:14:37 10/12/2024 11:47:39 Gestation period, 29 weeks 10872815 Z3A.29 [id number] [facility] [address],[place] [address] 10/29/2024 09:39:09 10/29/2024 12:27:14 Gestation period, 31 weeks 19473344 Z3A.31 Health Concerns Section Related Observation LastModified by Organization Detai ls LastModified Time None Recorded Concern Status LastModified by Organization Details LastModified Time None Recorded Advance Directives Directive N: Payers Encounter Date Sequence Insurance Name Policy Number Policy Gaona Covered Member ID Gaona Member ID Guarantor Name 09/17/2024 1 KHANH DANIELS (O) [id number] 1 Sheba Mike [id number] Sheba Mccamey 09/17/2024 1 [place] [id number] 1 Sheba Mccamey [id number] Sheba Cee 10/12/2024 1 [place] [id number] 1 Sheba Cee [id number] Sheba Mccamey 10/12/2024 1 [place] [id number] 1 Sheba Mccamey [id number] Sheba Cee 10/29/2024 1 [place] [id number] 1 Sheba Mccamey [id number] Sheba Cee OBGyn Episode Ob Episode Information Episode Created Date Number of Fetuses Patient Bloodtype Patient rh Status Prepregnancy Weight lbs Domestic Partner Domestic Partner Phone Father Name Supervisor Costuming Status 06/18/19 25 1 O Positive 257 Bakari Duble OPEN Fetus Data First Name Last Name Admitted to NICU Weight (g) Sex Living Outcome Pediatric Complications Fetus ID Race Codes Race Delivery Type [id number] Problems Problem Notes 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 Low risk fetus. Pt discussing genetic counseling and partner testing with SO. MK, RNMild right pyelectasisDBL left renal artery Problem Name Start Date End Date Resolution Snomed Code Not e Obesity 215655821 bASA Dilatation of renal pelvis 326815555 Marginal insertion of umbilical cord 14921405 growth Q 4 Carrier of spinal muscular atrophy 680302891614774008 Carrier of cystic fibrosis gene mutation 581808143 Hypothyroidism 40533543 anten atal testing History of vertebral fracture 111446113 as a child, no permanent hardware Gestational diabetes mellitus 10/14/2024 68734410 1hr gtt >200 checking BS QID DT referral faxed to [facility] 10/14 Yusef Calculation Initial Yusef Date Initial [...] Weight in lbs Pre/Post Dialysis Refused Weight 256.717484806669 BP Diastolic BP Location Tested BP Systolic [...] Type Weight in lbs Pre/Post Dialysis Refused 254.559270558676 BP Diastolic BP Location Tested BP Systolic [...] Type Weight in lbs Pre/Post Dialysis Refused 257.495984657894 BP Diastolic BP Location Tested BP Systolic [...] Weight in lbs Pre/Post Dialysis Refused Weight 263.788016500019 BP Diastolic BP Location Tested BP Systolic [...] Type Weight in lbs Pre/Post Dialysis Refused 263.362623990703 BP Diastolic BP Location Tested BP Systolic [...] Weight in lbs Pre/Post Dialysis Refused Weight 266.636759133745 BP Diastolic BP Location Tested BP Systolic BP Type 63 97 Fetus Heart Rate Present A 146 Present Fetus Movement Comments doing well, GDM diagnosed an d reviewed blood sugars, wnl, 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
[2024-11-03 06:49] VITALS: BP 99/61; PULSE 76; RESP 18; TEMP 36.3
[2024-11-03 06:53] VITALS: BMI 41.8
--- NOTE | 2024-11-03 06:56 | OBADM ---
This patient, Sheba Mike, admitted to the OB room 115 for observation. Patient/family oriented to hospital policies and general routines including ID bracelet, bed and alarms, visiting hours, pain management, procedures, bathroom and other care routines, personal items, smoking policy, room service/diet, and visiting hours. Patient/Family are encouraged to report perceived risks to care and to ask questions if they do not understand what they are told or what they should do.
[2024-11-03 07:00] LABS: Add Urine Microscopic? YES; Appearance Urine Clear (Clear); Bacteria Urine None Seen /hpf; Bilirubin Urine Negative (Negative); Blood Urine 3+ (Negative); Color Urine Yellow (Yellow); Glucose Urine UA Negative (Negative); Ketones Urine Negative (Negative); Leukocyte Esterase Ur Trace LEU/UL (Negative); Nitrate Urine Negative (Negative); Non Pathogenic Casts 0-2; Protein Urine Negative (Negative); RBC Urine >100 /hpf (0-2); Specific Grav Ur 1.014 (1.001-1.035); Squamous Epithelial Cell Urine Few /hpf (Few); WBC Urine 0-5 /hpf (0-3); pH Urine 6.5 (5.0-9.0)
[2024-11-03 07:01] VITALS: BP 95/58; PULSE 75
[2024-11-03] MEDS: LEVOTHYROXINE SODIUM 75 MCG TABLET PO (07:05)
[2024-11-03 07:16] VITALS: BP 102/83; PULSE 94
[2024-11-03] MEDS: TERBUTALINE SULFATE 1 MG/ML VIAL 0.25 MG SUB-Q (07:24)
[2024-11-03] MEDS: CYCLOBENZAPRINE HCL 10 MG TABLET PO (08:09)
[2024-11-03 08:17] VITALS: BP 103/58; PULSE 88
[2024-11-03 08:28] LABS: Glucose Point of Care 111 mg/dl (65-105)
[2024-11-03 09:02] VITALS: BP 98/48; PULSE 90
--- NOTE | 2024-11-04 21:34 | P.PNOB_ITS ---
OB - Triage/Final Diagnosis Visit Information Date of evaluation: 11/03/24 Reason for evaluation: threatened labor Comments/Additional reasons for admission: I have assessed the risk for this patient, Sheba Mike, and determined that she would benefit from observation care. Evaluation Laboratory results: Laboratory Tests 11/03/24 11/03/24 06:46 08:23 POC Capillary Glucose 111 H Urine Color Yellow Urine Appearance Clear Urine pH 6.5 Ur Specific [place] 1.014 Urine Protein Negative Urine Glucose (UA) Negative Urine Ketones Negative Ur Blood (Man) 3+ H Urine Nitrate Negative Urine Bilirubin Negative Urine Urobilinogen 1.0 Leukocyte Esterase Rfl Trace H Urine RBC >100 H Urine WBC 0-5 Ur Squamous Epith Cells Few Urine Bacteria None seen Urine Casts 0-2
== END 2024-11-03 09:54 | disposition home or self-care (01) ==
PROVIDERS: Advanced Practice Midwife; Admitting Provider Obstetrics & Gynecology; PCP Internal Medicine; Visit Provider Obstetrics & Gynecology
DX: O47.03 False labor before 37 completed weeks of gestation, third trimester (principal); Z3A.32 32 weeks gestation of pregnancy
CPT/HCPCS: 76815; 81001; 82948; 96372; A9270; G0378; G0379; J3105

== ENCOUNTER 2024-12-04 06:28 | Observation (INO) | payer BC, SELFPAY ==
--- NOTE | 2024-12-04 06:28 | OBADM ---
This patient, Sheba Qiu, admitted to the OB room Labor/Delivery/Recovery 105 for observation. Patient/family oriented to hospital policies and general routines including ID bracelet, bed and alarms, visiting hours, pain management, procedures, bathroom and other care routines, personal items, smoking policy, room service/diet, and visiting hours. Patient/Family are encouraged to report perceived risks to care and to ask questions if they do not understand what they are told or what they should do.
--- OUTSIDE RECORDS SUMMARY | 2024-12-04 07:14 | XMS_ITS | Continuity of Care Document ---
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 Discussed plan. Not available 12/03/2024 17:07:19 Plan of Treatment Reminders Order Date Submit Date Provider Last Modified By Organization Details Last Modified Time Details Appointments U/S OB BPP 2024 02:30P M ULTRASOUND [...] recorde d. Surgeries None recorde d. Imaging None recorde d. Medication Orders None recorde d. Patient TargetsNo targets recorded. Patient InstructionsNo instructions recorded. Reason for Referral None Reported. Results Created Date Observation Date Name Description Value Unit Range Abnormal Flag Note LastModifiedBy Organization Detail LastModifiedTime 06/18/19 25 06/18/2024 US, obste tric, nucha l trans lucen cy No observ ation record ed. [facility] [address], [place], [address], 06/18/2024 17:53:02 06/18/19 25 06/18/2024 US, obste tric, nucha l trans lucen cy No observ ation record ed. [email or web address] [address], [place], [address], 06/19/2024 21:22:07 08/14/19 25 08/13/2024 US, obste tric, 2nd or 3rd trime ster No observ ation record ed. [email or web address] [address], [place], [address], 08/26/2024 19:32:07 08/14/19 25 08/13/2024 US, obste tric, 2nd or 3rd trime ster No observ ation record ed. [facility] [address], [place], [address], 08/13/2024 18:17:22 09/18/19 25 09/20/2024 US, obste tric, follo w-up No observ ation record ed. [facility] [address], [place], [address], 09/20/2024 17:55:02 09/18/19 25 09/17/2024 US, obste tric, follo w-up No observ ation record ed. [email or web address] [address], [place], [address], 09/21/2024 17:38:11 10/13/19 25 10/12/2024 US, obste tric, follo w-up No observ ation record ed. [facility] [address], [place], [address], 10/12/2024 11:44:39 10/13/19 25 10/12/2024 US, obste tric, follo w-up No observ ation record ed. [email or web address] [address], [place], [address], 10/21/2024 11:04:59 11/04/19 25 11/03/2024 US, obste tric, limit ed No observ ation record ed. [address] [facility], [place], [address], 11/03/2024 14:22:24 11/04/19 25 11/03/2024 US, obste tric, limit ed No observ ation record ed. [address] [facility], [place], [address], 11/03/2024 14:22:46 11/04/19 25 11/03/2024 non-s tress test No observ ation record ed. [address] [facility], [place], [address], 11/03/2024 14:23:27 11/20/19 25 11/19/2024 US, obste tric, follo w-up No observ ation record ed. [email or web address] [address], [place], [address], 11/22/2024 14:56:33 11/20/19 25 11/22/2024 US, obste tric, follo w-up No observ ation record ed. [email or web address] [place] [address] [address], [place], [address], 11/22/2024 12:19:43 06/27/11/22/2024 US, obste tric, bioph ysica l profi le + non-s tress test No observ ation record ed. [email or web address] Serafina [address], [place], [address], 11/22/2024 12:19:52 11/23/19 non-s tress test No observ ation record ed. [email or web address] Serafina [address], [place], [address], 11/22/2024 18:00:57 11/25/19 25 11/24/2024 US, obste tric, bioph ysica l profi le + non-s tress test No observ ation record ed. [email or web address] Serafina [address], [place], [address], 11/24/2024 11:57:24 11/25/19 25 11/24/2024 US, obste tric, follo w-up No observ ation record ed. [address], [place], [address], 11/30/2024 22:03:38 11/25/19 25 11/24/2024 non-s tress test No observ ation record ed. [email or web address] Serafina [address], [place], [address], 11/24/2024 17:56:54 12/04/19 25 12/03/2024 US, yonathan tric, bioph ysica l profi le No observ ation record ed. [email or web address] [address], [place], [address], 12/03/2024 17:47:45 12/04/19 25 12/03/2024 non-s tress test No observ ation record ed. [email or web address] Serafina [address], [place], [address], 12/03/2024 17:17:15 12/04/19 25 12/03/2024 US, obste tric, bioph ysica l profi le + non-s tress test No observ ation record ed. [email or web address] Franks [address], [place], [address], 12/03/2024 17:49:56 Result Notes None recorded. 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 5 13:35:15 Mixed anxiety and depressi ve disorder 201217880 Active 2023 Brenda Darby null, [facility] 4 15:03:58 Pregnanc y 12917867 Active 2024 Brenda Darby null, [facility] 5 12:36:08 Obesity 960076114 Active bASA Blanca Pierre CNM [address], [place], [address], [facility] 5 13:35:01 Hypothyr oidism 77445366 Active testing Blanca Pierre CNM [address], [place], [address], [facility] 5 13:35:15 History of vertebra l fracture 625913461 Active as a child, no permanent hardware Blanca Pierre CNM [address], [place], [address], [facility] 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 5 12:21:26 Carrier of spinal muscular atrophy 53536341601 8679526 Active Pepper peacock [facility] 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 5 16:52:50 Body mass index 30+ - obesity 926752712 Active 2024 start nst [address] [facility] 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 5 19:30:42 Dilatati on of renal pelvis 591008179 Active Gale Duoglas [facility] 5 19:30:42 Gestatio nal diabetes mellitus 98710762 Active 2024 1hr gtt >200 checking BS QID DT referral faxed to [facility] 10/[address] [facility] 5 16:18:44 Problem Notes None recorded. Procedures Surgical History Date Name Laterality Status Provider Name and Address Organization Details Recorded Time 4 Date of Last Pap Smear completed Brenda Darby [facility] 05/21/2024 15:02:57 5 extraction of wisdom tooth completed Brenda Darby [facility] 06/18/2024 12:07:52 Imaging Results None recorded. [...] Available Not Available No t Available OneTouch Ultra Test strips TEST FOUR TIMES [...] Body mass index (BMI) Body weight Systolic And Diastolic Provider Name and Address Organization Details Last Updated DateTime 12/03/2024 165.1 cm 44.9 kg/m2 448488.94 g 109/64 mm[Hg] My Cabezas [facility] 12/03/2024 15:51:38 Social History Question Answer Notes LastModified by Organizat ion Details LastModified Time Tobacco Smoking Status Never Smoker Brenda casey, [facility] 09/17/2024 16:52:27 Do You Have An Advance Directive? No [email or web address] Information n ot available 05/21/2024 If You Are , What Was Your Level Of Alcohol Consumption Prior To ? Occasional [email or web address] Information not available 09/17/2024 How Many Years Have You Consumed Alcohol? 10 [email or web address] Information not available 06/18/2024 Are You Blind Or Do You Have Difficulty Seeing? No [email or web address] Information n ot available 05/21/2024 What Is Your Level Of Caffeine Consumption? Occasional [email or web address] Information not available 05/21/2024 How Much Tobacco Do You Chew? None [email or web address] Information not available 05/21/2024 In The 14 Days Before Symptom Onset, Have You Had Close Contact With A Laboratory-confirm ed COVID-19 While That Case Was Ill? No [email or web address] Information n ot available 05/21/2024 In The 14 Days Before Symptom Onset, Have You Had Close Contact With A Person Who Is Under Investigation For COVID-19 While That Person Was Ill? No Information not available 05/21/2024 Have You Been To An Area Known To Be High Risk For COVID-19? No [email or web address] Information not available 05/21/2024 Are You Deaf Or Do You Have Serious Difficulty Hearing? No [email or web address] Information not available 05/21/2024 What Type Of Diet Are You Following? REGULAR [email or web address] Information n ot available 05/21/2024 What Is The Highest Grade Or Level Of School You Have Completed Or The Highest Degree You Have Received? [id number] [email or web address] Information not available 05/21/2024 Are There Any Guns Present In Your Home? No Information not available 05/21/2024 Do You Use Protection During Sex? Usually [email or web address] Information not available 05/21/2024 Do You Use Your Seat Belt Or Car Seat Routinely? Yes Information not available 05/21/2024 Do You Have Smoke And Carbon Monoxide Detectors In Your Home? Yes [email or web address] Information not available 05/21/2024 How Much Tobacco Do You Smoke? No [email or web address] Information not available 05/21/2024 Do You Use Sunscreen Routinely? No [email or web address] Information not available 06/18/2024 Have You Used IV Drugs? No [email or web address] Information not available 05/21/2024 Do You Have Difficulty Walking Or Climbing Stairs? No [email or web address] Information not available 09/17/2024 Sex: Unknown Functional Status Question Answer Note LastModified by Organizat ion Details LastModified Time Do you use any illicit or recreational drugs? Yes [email or web address] Information not available 05/21/2024 What is your level of alcohol consumption? None [email or web address] Information not available 05/21/2024 Are you able to walk? YESWOREST [email or web address] Information not available 05/21/2024 Are you able to care for yourself? 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 No Information not available 09/17/2024 What is your exercise level? Moderate [email or web address] Information not available 05/21/2024 Mental Status Question Answer Note LastModified by Organization D etails LastModified Time Do you feel stressed (tense, restless, nervous, or anxious, or unable to sleep at night)? [id number] [email or web address] Information not available 06/18/2024 Family History Relationship Description Onset Age of this Age Resolved Age Notes LastModified by Organization Details LastModified Time Mother Disorder of thyroid gland [email or web address] Not available 06/18 12:06:42 Maternal Aunt Disorder of thyroid gland [email or web address] Not available 06/18 12:06:42 Maternal Grandmother Disorder of thyroid gland [email or web address] Not available 05/21 15:02:56 Maternal Grandmother Heart disease [email or web address] Not available 11/14 22:55:29 Maternal Grandmother Aneurysm [email or web address] Not available 0 12/03/2024 15:29:38 Father Diabetes mellitus [email or web address] Not available 11/14 22:55:53 Paternal Grandfather Diabetes mellitus [email or web address] Not available 11/14 22:55:53 Medical History Condition Response Allergies (Food, seasonal, environmental ) N Other N Drug/Latex Allergies/Reactions N Blood Transfusion N Breast Cancer N Dermatologic Disorders N Lung Disease N Defects or Inherited Disease N Breast Problem N Gestational Diabetes N Hematologic disorders N Anesthesia Complications N History of STI N Deep Vein Thrombosis N Polycystic ovary syndrome N Anxiety Disorder Y Autoimmune disease N Arthritis N Polyps N Infertility N Acid Reflux (GERD) N History of abnormal pap N Cancer N Varicosities N Stroke N Neurologic/Epilepsy N Endometriosis N High Cholesterol N Fibromyalgia N Headaches N Kidney Disease N Heart Problems N Thyroid Problems Y Kidney or Bladder Problems N GI Problems N Eating Disorder N Anemia [...] SNOMED-CT Code Diagnosis ICD10 Code Diagnosis Note [id number] [facility] [address],[place] [address] 11/12/2024 11:04:36 11/12/2024 13:16:01 Gestation period, 33 weeks 35674621 Z3A.33 [id number] [facility] [address],[place] [address] 11/19/2024 15:10:00 11/23/2024 03:53:50 Maternal obesity complicating , childbirth and the puerperium, antepartum 7576367881 07 O99.210 [id number] Neftaly Martinez MD Serafina [address],[place] [address] 11/19/2024 15:11:22 11/22/2024 09:09:47 Obesity 533464075 O99.210 O43.193 Z3A.34 [id number] Blanca Pierre [facility] [address],[place] [address] 11/19/2024 15:12:35 11/19/2024 16:16:52 Gestation period, 34 weeks 89421216 Z3A.34 Gestationa l diabetes mellitus 90837436 O24.419 [id number] Neftaly Martinez MD Serafina [address],[place] [address] 11/24/2024 10:52:05 11/24/2024 11:35:13 Maternal obesity complicating , childbirth and the puerperium, antepartum 7098515354 07 O99.210 O24.410 Z3A.35 [id number] Blanca Pierre [facility] [address],[place] [address] 11/24/2024 10:54:31 11/24/2024 17:55:01 Obesity 924731914 O99.210 [id number] Blanca Pierre [facility] [address],[place] [address] 11/24/2024 10:54:51 11/24/2024 20:10:39 [id number] Blanca Pierre [facility] [address],[place] [address] 11/24/2024 12:00:23 11/24/2024 13:44:03 Gestation period, 35 weeks 25232475 Z3A.35 [id number] Blanca Pierre [facility] [address],[place] [address] 12/03/2024 15:28:59 12/03/2024 17:18:29 Maternal obesity complicating , childbirth and the puerperium, antepartum 2850143011 07 O99.210 [id number] Neftaly Martinez MD Serafina [address],[place] [address] 12/03/2024 15:29:49 12/03/2024 17:43:27 Maternal obesity complicating , childbirth and the puerperium, antepartum 4396900153 07 O99.210 Z3A.36 [id number] Blanca Pierre, [facility] [address] [address] 12/03/2024 15:30:03 12/03/2024 17:07:36 Gestation period, 36 weeks 86937508 Z3A.36 Health Concerns Section Related Observation LastModified by Organization Detai ls LastModified Time None Recorded Concern Status LastModified by Organization Details LastModified Time None Recorded Payers Encounter Date Sequence Insurance Name Policy Number Policy Gaona Covered Member ID Gaona Member ID Guarantor Name 12/03/2024 1 [place] ([place]) [id number] 1 Sheba Mike [id number] Sheba Mike 12/03/2024 2 [facility] [id number] Bakari Qiu [id number] Sheba Mike OBGyn Episode Ob Episode Information Episode Created Date Number of Fetuses Patient Bloodtype Patient rh Status Prepregnancy Weight lbs Domestic Partner Domestic Partner Phone Father Name Acct Exec Status 06/18/19 25 1 O Positive 257 Bakari Diaz OPEN Fetus Data First Name Last Name Admitted to NICU Weight (g) Sex Living Outcome Pediatric Complications Fetus ID Race Codes Race Delivery Type [id number] Problems Problem Notes 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 Low risk fetus. Pt discussing genetic counseling and partner testing with SO. MK, RNMild right pyelectasisDBL left renal artery+ GBS Problem Name Start Date End Date Resolution Snomed Code Not e Obesity 138435185 bASA Dilatation of renal pelvis 424800619 Marginal insertion of umbilical cord 02897114 growth Q 4 Carrier of spinal muscular atrophy 582668729327621544 Carrier of cystic fibrosis gene mutation 925121231 Hypothyroidism 82188355 anten atal testing History of vertebral fracture 804431440 as a child, no permanent hardware Gestational diabetes mellitus 10/14/2024 46786570 1hr gtt >200 checking BS QID DT referral faxed to [facility] 10/14 Yusef Calculation Initial Yusef Date [...] Weight in lbs Pre/Post Dialysis Refused Weight 256.966833263991 BP Diastolic BP Location Tested BP Systolic [...] Type Weight in lbs Pre/Post Dialysis Refused 254.101506556463 BP Diastolic BP Location Tested BP Systolic [...] Type Weight in lbs Pre/Post Dialysis Refused 257.528723170142 BP Diastolic BP Location Tested BP Systolic [...] Weight in lbs Pre/Post Dialysis Refused Weight 263.923815367422 BP Diastolic BP Location Tested BP Systolic [...] Type Weight in lbs Pre/Post Dialysis Refused 263.243137387756 BP Diastolic BP Location Tested BP Systolic [...] Weight in lbs Pre/Post Dialysis Refused Weight 266.553534772924 BP Diastolic BP Location Tested BP Systolic BP Type 63 97 Fetus Heart Rate Present A 146 Present Fetus Movement Comments doing well, GDM diagnosed an d reviewed blood sugars, wnl, saw nutrition services aide and doing well with diet, +FM precautions and education, ok for tdap, call for preadmit f/u 2 weeks Flowsheet Date 11/12/2024 Arndt Score Blood Edema Fundus Height Fundus Units Glucose Ketones Leukocytes Nitrite Labor Signs Protein Cervic Dilation Cervic Effacement Cervic Station neg none 32 cm Type Weight in lbs Pre/Post Dialysis Refused Weight 264.506805010504 BP Diastolic BP Location Tested BP Systolic BP Type 68 102 Fetus Heart Rate Present A 150 Present Fetus Movement A Yes Comments Patient is having tightness, pain, and nausea. reviewed blood sugars doing well, +FM, preadmit scheduled, precautions and education, f/u one week Flowsheet Date 11/19/2024 Arndt Score Blood Edema Fundus Height Fundus Units Glucose Ketones Leukocytes Nitrite Labor Signs Protein Cervic Dilation Cervic Effacement Cervic Station Type Weight in lbs Pre/Post Dialysis Refused 266.335989118024 BP Diastolic BP Location Tested BP Systolic BP Type 59 L arm 94 sitting Fetus Heart Rate Present Fetus Movement Comments Flowsheet Date 11/19/2024 Arndt Score Blood Edema Fundus Height Fundus Units Glucose Ketones Leukocytes Nitrite Labor Signs Protein Cervic Dilation Cervic Effacement Cervic Station Type Weight in lbs Pre/Post Dialysis Refused BP Diastolic BP Location Tested BP Systolic BP Type Fetus Heart Rate Present Fetus Movement Comments Flowsheet Date 11/19/2024 Arndt Score Blood Edema Fundus Height Fundus Units Glucose Ketones Leukocytes Nitrite Labor Signs Protein Cervic Dilation Cervic Effacement Cervic Station Type Weight in lbs Pre/Post Dialysis Refused 266.094463430630 BP Diastolic BP Location Tested BP Systolic BP Type 59 L arm 94 sitting Fetus Heart Rate Present Fetus Movement Comments Nst R, bpp today, doing well reviewed blood sugars, education and precautions, gbs next visit, preadmission scheduled f/u one week Flowsheet Date 11/24/2024 Arndt Score Blood Edema Fundus Height Fundus Units Glucose Ketones Leukocytes Nitrite Labor Signs Protein Cervic Dilation Cervic Effacement Cervic Station Type Weight in lbs Pre/Post Dialysis Refused BP Diastolic BP Location Tested BP Systolic BP Type Fetus Heart Rate Present Fetus Movement Comments Flowsheet Date 11/24/2024 Arndt Score Blood Edema Fundus Height Fundus Units Glucose Ketones Leukocytes Nitrite Labor Signs Protein Cervic Dilation Cervic Effacement Cervic Station Type Weight in lbs Pre/Post Dialysis Refused BP Diastolic BP Location Tested BP Systolic BP Type Fetus Heart Rate Present Fetus Movement Comments Flowsheet Date 11/24/2024 Arndt Score Blood Edema Fundus Height Fundus Units Glucose Ketones Leukocytes Nitrite Labor Signs Protein Cervic Dilation Cervic Effacement Cervic Station Type Weight in lbs Pre/Post Dialysis Refused 267.368771519498 BP Diastolic BP Location Tested BP Systolic BP Type 68 L arm 102 sitting Fetus Heart Rate Present Fetus Movement A Yes Comments bpp 03/04, +FM education and precautions, gbs collected f/u one week Flowsheet Date 11/24/2024 Arndt Score Blood Edema Fundus Height Fundus Units Glucose Ketones Leukocytes Nitrite Labor Signs Protein Cervic Dilation Cervic Effacement Cervic Station Type Weight in lbs Pre/Post Dialysis Refused BP Diastolic BP Location Tested BP Systolic BP Type Fetus Heart Rate Present Fetus Movement Comments Flowsheet Date 12/03/2024 Arndt Score Blood Edema Fundus Height Fundus Units Glucose Ketones Leukocytes Nitrite Labor Signs Protein Cervic Dilation Cervic Effacement Cervic Station Type Weight in lbs Pre/Post Dialysis Refused BP Diastolic BP Location Tested BP Systolic BP Type Fetus Heart Rate Present Fetus Movement Comments Flowsheet Date 12/03/2024 Arndt Score Blood Edema Fundus Height Fundus Units Glucose Ketones Leukocytes Nitrite Labor Signs Protein Cervic Dilation Cervic Effacement Cervic Station Type Weight in lbs Pre/Post Dialysis Refused BP Diastolic BP Location Tested BP Systolic BP Type Fetus Heart Rate Present Fetus Movement Comments Flowsheet Date 12/03/2024 Arndt Score Blood Edema Fundus Height Fundus Units Glucose Ketones Leukocytes Nitrite Labor Signs Protein Cervic Dilation Cervic Effacement Cervic Station Type Weight in lbs Pre/Post Dialysis Refused Weight 270.051381294743 BP Diastolic BP Location Tested BP Systolic BP Type 64 L arm 109 sitting Fetus Heart Rate Present Fetus Movement A Yes Comments get blood sugar log uploaded will have rn call, bpp 03/04 doing well, going to beach this weekend, precautions and education f/u one week Menstrual History Last Menstrual Date Menses Monthly [...]
--- OUTSIDE RECORDS SUMMARY | 2024-12-04 07:14 | XMS_ITS | Continuity of Care Document ---
Author Organization [facility] [place] [place] [place] Address [address] [place] [address] [place] [address] Care Team Providers Care Probation And Patrol Agent Name Role Phone CHARITY STEFANIE Primary Care Provider Assessment No assessment recorded. Plan of Treatment Reminders Order Date Submit Date Provider Last Modified By Organization Details Last Modified Time Details Appointments U/S OB BPP 2024 02:30P M ULTRASOUND Not available Not available Not available NST 2024 03:00P M NST SCHEDULE Not available Not available Not available OB ROUTINE 2024 03:30P M Blancapema Longoe, CNM Not available Not available Not available U/S OB BPP 2024 02:30P M ULTRASOUND Not available Not available Not available NST 2024 03:00P M NST SCHEDULE Not available Not available Not available OB ROUTINE 2024 03:30P M Blancapema Longoe, CNM Not available Not available Not available U/S OB BPP 2024 02:30P M ULTRASOUND Not available Not available Not available NST 2024 03:00P M NST SCHEDULE Not available Not available Not available OB ROUTINE 2024 03:30P M Blancapema Longoe CNM Not available Not available Not available Lab None recorde d. Referral None recorde d. Procedures None recorde d. Surgeries None recorde d. Imaging US, obstetr ic, biophys ical profile + non-str ess test 2024 025 [email or web address] [place], [address], [place], [address], 12/03/2024 21:58:37 Medication Orders None recorde d. Patient TargetsNo targets recorded. Patient InstructionsNo instructions recorded. Reason for Referral None Reported. Results Created Date Observation Date Name Description Value Unit Range Abnormal Flag Note LastModifiedBy Organization Detail LastModifiedTime 06/18/19 25 06/18/2024 US, obste tric, nucha l trans lucen cy No observ ation record ed. [facility] [address], [place], [address], 06/18/2024 17:53:02 06/18/19 25 06/18/2024 US, obste tric, nucha l trans lucen cy No observ ation record ed. [email or web address] [address], [place], [address], 06/19/2024 21:22:07 08/14/19 25 08/13/2024 US, obste tric, 2nd or 3rd trime ster No observ ation record ed. [email or web address] [address], [place], [address], 08/26/2024 19:32:07 08/14/19 25 08/13/2024 US, obste tric, 2nd or 3rd trime ster No observ ation record ed. [facility] [address], [place], [address], 08/13/2024 18:17:22 09/18/19 25 09/20/2024 US, obste tric, follo w-up No observ ation record ed. [facility] [address], [place], [address], 09/20/2024 17:55:02 09/18/19 25 09/17/2024 US, obste tric, follo w-up No observ ation record ed. [email or web address] [address], [place], [address], 09/21/2024 17:38:11 10/13/19 25 10/12/2024 US, obste tric, follo w-up No observ ation record ed. [facility] [address], [place], [address], 10/12/2024 11:44:39 10/13/19 25 10/12/2024 US, obste tric, follo w-up No observ ation record ed. [email or web address] [address], [place], [address], 10/21/2024 11:04:59 11/04/19 25 11/03/2024 US, obste tric, limit ed No observ ation record ed. [address] [facility], [place], [address], 11/03/2024 14:22:24 11/04/19 25 11/03/2024 US, obste tric, limit ed No observ ation record ed. [address] [facility], [place], [address], 11/03/2024 14:22:46 11/04/19 25 11/03/2024 non-s tress test No observ ation record ed. [address] [facility], [place], [address], 11/03/2024 14:23:27 11/20/19 25 11/19/2024 US, obste tric, follo w-up No observ ation record ed. [email or web address] [address], [place], [address], 11/22/2024 14:56:33 11/20/19 25 11/22/2024 US, obste tric, follo w-up No observ ation record ed. [email or web address] [place] [address] [address], [place], [address], 11/22/2024 12:19:43 11/20/19 25 11/22/2024 US, obste tric, bioph ysica l profi le + non-s tress test No observ ation record ed. [email or web address] [place] [address], [place], [address], 11/22/2024 12:19:52 11/23/19 non-s tress test No observ ation record ed. [email or web address] [place] [address], [place], [address], 11/22/2024 18:00:57 11/25/19 25 11/24/2024 US, obste tric, bioph ysica l profi le + non-s tress test No observ ation record ed. [email or web address] [place] [address], [place], [address], 11/24/2024 11:57:24 11/25/19 25 11/24/2024 US, obste tric, follo w-up No observ ation record ed. [email or web address] [address], [place], [address], 11/30/2024 22:03:38 11/25/19 25 11/24/2024 non-s tress test No observ ation record ed. [email or web address] [place] [address], [place], [address], 11/24/2024 17:56:54 12/04/19 25 12/03/2024 US, obste tric, bioph ysica l profi le No observ ation record ed. [email or web address] [address] [place], [address], 12/03/2024 17:47:45 12/04/19 25 12/03/2024 non-s tress test No observ ation record ed. [email or web address] [place] [address], [place], [address], 12/03/2024 17:17:15 12/04/19 25 12/03/2024 US, obste tric, bioph ysica l profi le + non-s tress test No observ ation record ed. [facility] [address], [place], [address], 12/03/2024 17:49:56 Result Notes None recorded. Problems Name Problem SNOMED Code Status Onset Date Resolution Date Notes Provider Name and Address Organization Details Recorded Time Hypothyr oidism 27695985 Active testing Blanca Pierre CNM [address], [place], [address], [facility] 5 13:35:15 Mixed anxiety and depressi ve disorder 819987602 Active 2023 Brenda casey, [facility] 4 15:03:58 Pregnanc y 93858266 Active 2024 Brenda casey, [facility] 5 12:36:08 Obesity 955625683 Active bASChris Pierre CNM [address], [place], [address], [facility] 5 13:35:01 Hypothyr oidism 86009671 Active testing Blanca Pierre CNM [address], [place], [address], [facility] 5 13:35:15 History of vertebra l fracture 722674558 Active as a child, no permanent hardware Blanca Pierre CNM [address], [place], [address], [facility] 5 13:35:49 Carrier of cystic fibrosis gene mutation 092586742 Active Pepper casey, [facility] 5 12:21:26 Carrier of spinal muscular atrophy [id number] 6940982 Active Pepper peacock null, [facility] 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 5 16:52:50 Body mass index 30+ - obesity 488472147 Active 2024 start nst 34 wks Brenda Darby [facility], [facility] 5 16:58:51 Dilatati on of renal pelvis 393950603 Active Gale Douglas [facility], [facility] 5 19:30:42 Dilatati on of renal pelvis 410162105 Active Gale Douglas [facility], [facility] 5 19:30:42 Gestatio nal diabetes mellitus 66312455 Active 2024 1hr gtt >200 checking BS QID DT referral faxed to [facility] 10/14 Gale Douglas [facility] 5 16:18:44 Problem Notes None recorded. Procedures Surgical History Date Name Laterality Status Provider Name and Address Organization Details Recorded Time 4 Date of Last Pap Smear completed Brenda Darby [facility] 05/21/2024 15:02:57 5 extraction of wisdom tooth completed Brenda Darby [facility] 06/18/2024 12:07:52 Imaging Results None recorded. [...] Updated DateTime 12/03/2024 165.1 cm 44.9 kg/m2 337876.94 g 109/64 mm[Hg] My Cabezas [facility] 12/03/2024 15:51:38 Social History Question Answer Notes LastModified by Organizat ion Details LastModified Time Tobacco Smoking Status Never Smoker Brenda casey, [facility] 09/17/2024 16:52:27 Do You Have An Advance Directive? No [email or web address] Information n ot available 05/21/2024 If You Are , What Was Your Level Of Alcohol Consumption Prior To ? Occasional [email or web address] Information not available 09/17/2024 How Many Years Have You Consumed Alcohol? 10 [email or web address] Information not available 06/18/2024 Are You Blind Or Do You Have Difficulty Seeing? No [email or web address] Information n ot available 05/21/2024 What Is Your Level Of Caffeine Consumption? Occasional [email or web address] Information not available 05/21/2024 How Much Tobacco Do You Chew? None Information not available 05/21/2024 In The 14 Days Before Symptom Onset, Have You Had Close Contact With A Laboratory-confirm ed COVID-19 While That Case Was Ill? No [email or web address] Information n ot available 05/21/2024 In The 14 Days Before Symptom Onset, Have You Had Close Contact With A Person Who Is Under Investigation For COVID-19 While That Person Was Ill? No [email or web address] Information not available 05/21/2024 Have You Been To An Area Known To Be High Risk For COVID-19? No [email or web address] Information not available 05/21/2024 Are You Deaf Or Do You Have Serious Difficulty Hearing? No [email or web address] Information not available 05/21/2024 What Type Of Diet Are You Following? REGULAR [email or web address] Information n ot available 05/21/2024 What Is The Highest Grade Or Level Of School You Have Completed Or The Highest Degree You Have Received? BT76976-3 [email or web address] Information not available 05/21/2024 Are There Any Guns Present In Your Home? No [email or web address] Information not available 05/21/2024 Do You Use Protection During Sex? Usually [email or web address] Information not available 05/21/2024 Do You Use Your Seat Belt Or Car Seat Routinely? Yes [email or web address] Information not available 05/21/2024 Do You Have Smoke And Carbon Monoxide Detectors In Your Home? Yes [email or web address] Information not available 05/21/2024 How Much Tobacco Do You Smoke? No [email or web address] Information not available 05/21/2024 Do You Use Sunscreen Routinely? No [email or web address] Information not available 06/18/2024 Have You Used IV Drugs? No [email or web address] Information not available 05/21/2024 Do You Have Difficulty Walking Or Climbing Stairs? No [email or web address] Information not available 09/17/2024 Sex: Unknown Functional Status Question Answer Note LastModified by Organizat ion Details LastModified Time Do you use any illicit or recreational drugs? Yes [email or web address] Information not available 05/21/2024 What is your level of alcohol consumption? None [email or web address] Information not available 05/21/2024 Are you able to walk? YESWOREST [email or web address] Information not available 05/21/2024 Are you able to care for yourself? 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 No Information not available 09/17/2024 What is your exercise level? Moderate [email or web address] Information not available 05/21/2024 Mental Status Question Answer Note LastModified by Organization D etails LastModified Time Do you feel stressed (tense, restless, nervous, or anxious, or unable to sleep at night)? [id number] [email or web address] Information not available 06/18/2024 Family History Relationship Description Onset Age of this Age Resolved Age Notes LastModified by Organization Details LastModified Time Mother Disorder of thyroid gland [email or web address] Not available 06/18 12:06:42 Maternal Aunt Disorder of thyroid gland [email or web address] Not available 06/18 12:06:42 Maternal Grandmother Disorder of thyroid gland [email or web address] Not available 05/21 15:02:56 Maternal Grandmother Heart disease [email or web address] Not available 11/14 22:55:29 Maternal Grandmother Aneurysm [email or web address] Not available 0 12/03/2024 15:29:38 Father Diabetes mellitus [email or web address] Not available 11/14 22:55:53 Paternal Grandfather Diabetes mellitus [email or web address] Not available 11/14 22:55:53 Medical History Condition Response Allergies (Food, seasonal, environmental ) N Other N Breast Cancer N Drug/Latex Allergies/Reactions N Blood Transfusion N Lung Disease N Dermatologic Disorders N Defects or Inherited Disease N Breast [...] SNOMED-CT Code Diagnosis ICD10 Code Diagnosis Note [id number] Blanca Pierre CNM [place] [address],[facility] [place] [address] 11/12/2024 11:04:36 11/12/2024 13:16:01 Gestation period, 33 weeks 55954350 Z3A.33 [id number] Blanca Pierre CNM [place] [address],[facility] [place] [address] 11/19/2024 15:10:00 11/23/2024 03:53:50 Maternal obesity complicating , childbirth and the puerperium, antepartum 4058472793 07 O99.210 [id number] Neftaly Martinez MD [place] [address],[facility] [place] [address] 11/19/2024 15:11:22 11/22/2024 09:09:47 Obesity 657083842 O99.210 O43.193 Z3A.34 [id number] Blanca Pierre [facility] [address] [address] 11/19/2024 15:12:35 11/19/2024 16:16:52 Gestation period, 34 weeks 35276422 Z3A.34 Gestationa l diabetes mellitus 53441318 O24.419 [id number] Neftaly Martinez MD [place] [address],[place] [address] 11/24/2024 10:52:05 11/24/2024 11:35:13 Maternal obesity complicating , childbirth and the puerperium, antepartum 2916944498 07 O99.210 O24.410 Z3A.35 [id number] [facility] [address],[place] [address] 11/24/2024 10:54:31 11/24/2024 17:55:01 Obesity 490000629 O99.210 [id number] Blanca Pierre [facility] [address],[place] [address] 11/24/2024 10:54:51 11/24/2024 20:10:39 [id number] [facility] [address] [place] [address] 11/24/2024 12:00:23 11/24/2024 13:44:03 Gestation period, 35 weeks 00341392 Z3A.35 [id number] Blanca Pierre [facility] [address],[place] [address] 12/03/2024 15:28:59 12/03/2024 17:18:29 Maternal obesity complicating , childbirth and the puerperium, antepartum 8695134195 07 O99.210 [id number] Neftaly Martinez MD [place] [address],[place] [address] 12/03/2024 15:29:49 12/03/2024 17:43:27 Maternal obesity complicating , childbirth and the puerperium, antepartum 0047900082 07 O99.210 Z3A.36 [id number] [facility] [address] [address] 12/03/2024 15:30:03 12/03/2024 17:07:36 Gestation period, 36 weeks 50035469 Z3A.36 Health Concerns Section Related Observation LastModified by Organization Detai ls LastModified Time None Recorded Concern Status LastModified by Organization Details LastModified Time None Recorded Payers Encounter Date Sequence Insurance Name Policy Number Policy Gaona Covered Member ID Gaona Member ID Guarantor Name 12/03/2024 1 [place] ([place] [id number] 1 Sheba Mike [id number] Sheba Mike 12/03/2024 2 [facility] [id number] Bakari Qiu [id number] Sheba Mike OBGyn Episode Ob Episode Information Episode Created Date Number of Fetuses Patient Bloodtype Patient rh Status Prepregnancy Weight lbs Domestic Partner Domestic Partner Phone Father Name Software Technician Status 06/18/19 25 1 O Positive 257 Bakari Diaz OPEN Fetus Data First Name Last Name Admitted to NICU Weight (g) Sex Living Outcome Pediatric Complications Fetus ID Race Codes Race Delivery Type [id number] Problems Problem Notes 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 Low risk fetus. Pt discussing genetic counseling and partner testing with SO. MK, RNMild right pyelectasisDBL left renal artery+ GBS Problem Name Start Date End Date Resolution Snomed Code Not e Obesity 500931945 bASA Dilatation of renal pelvis 244931917 Marginal insertion of umbilical cord 88299731 growth Q 4 Carrier of spinal muscular atrophy 231266646689266911 Carrier of cystic fibrosis gene mutation 825169037 Hypothyroidism 77339348 anten atal testing History of vertebral fracture 819674389 as a child, no permanent hardware Gestational diabetes mellitus 10/14/2024 79424682 1hr gtt >200 checking BS QID DT referral faxed to [facility] 10/14 Yusef Calculation Initial Yusef Date [...] Weight in lbs Pre/Post Dialysis Refused Weight 256.905713829768 BP Diastolic BP Location Tested BP Systolic [...] Type Weight in lbs Pre/Post Dialysis Refused 254.871946020870 BP Diastolic BP Location Tested BP Systolic [...] Type Weight in lbs Pre/Post Dialysis Refused 257.541098614291 BP Diastolic BP Location Tested BP Systolic [...] Weight in lbs Pre/Post Dialysis Refused Weight 263.831595361786 BP Diastolic BP Location Tested BP Systolic [...] Type Weight in lbs Pre/Post Dialysis Refused 263.330910332802 BP Diastolic BP Location Tested BP Systolic [...] Weight in lbs Pre/Post Dialysis Refused Weight 266.580262986330 BP Diastolic BP Location Tested BP Systolic BP Type 63 97 Fetus Heart Rate Present A 146 Present Fetus Movement Comments doing well, GDM diagnosed an d reviewed blood sugars, wnl, saw internal medicine nurse practitioner and doing well with diet, +FM precautions and education, ok for tdap, call for preadmit f/u 2 weeks Flowsheet Date 11/12/2024 Arndt Score Blood Edema Fundus Height Fundus Units Glucose Ketones Leukocytes Nitrite Labor Signs Protein Cervic Dilation Cervic Effacement Cervic Station neg none 32 cm Type Weight in lbs Pre/Post Dialysis Refused Weight 264.766342886743 BP Diastolic BP Location Tested BP Systolic [...] Type Weight in lbs Pre/Post Dialysis Refused 266.214213997331 BP Diastolic BP Location Tested BP Systolic [...] Type Weight in lbs Pre/Post Dialysis Refused 266.274149850235 BP Diastolic BP Location Tested BP Systolic [...] Type Weight in lbs Pre/Post Dialysis Refused 267.458758253001 BP Diastolic BP Location Tested BP Systolic [...] Weight in lbs Pre/Post Dialysis Refused Weight 270.914984045796 BP Diastolic BP Location Tested BP Systolic [...]
--- OUTSIDE RECORDS SUMMARY | 2024-12-04 07:14 | XMS_ITS | Data Portability ---
Author Organization [facility] [place] Address [address] [place] [address] Care Team Providers Care Consulting Analyst Name Role Phone STEFANIE NASH Primary Care Provider [phone] Assessment Encounter Date Assessment Date Assessment LastModified [...] Not available OB ROUTINE 2024 03:30P M CAROLINA SheehanM Not available Not available [...] + non-str ess test 2024 025 [email or web address] [place], [place], [address], 12/03/2024 21:58:37 non-str ess test 2024 025 [email or web address] [address], [place], [address], 12/03/2024 17:18:25 non-str ess test 2024 025 [email or web address] [place], [place], [address], 11/24/2024 23:52:21 , [facility] ic, biophys ical profile + non-str ess test 2024 025 [email or web address] [place], [place], [address], 11/26/2024 22:15:55 Medication Orders None recorde d. Patient TargetsNo targets recorded. Patient InstructionsNo instructions recorded. Reason for Referral None Reported. Results Created Date Observation Date Name Description Value Unit Range Abnormal Flag Note LastModifiedBy Organization Detail LastModifiedTime 11/25/1911/24/2024 TSH, REFLE X FREE T4 TSH 0.99 uIU/m L 0.30-5 .33 Not Available [facility] (Lab) [address], [place], [address], 11/25/2024 05:39:05 11/25/1911/24/2024 CULTU RE: GROUP B STREP SCREE N, REFLE X SUSCE PTIBI LITY result report SEE RESULT S BELOW abnormal Test: Cultu re: Group B Strep , Refle x Susce ptibi lity ([facility]/ [facility] ) Speci men Sourc e: Vagin a/Rec kaden Speci men Type: Vagin al/Re ctal Speci men Date: 025 1329 Resul t Date: 025 1459 Resul t Statu s: Final resul t Abnor mal: Yes Resul ting Lab: [facility] [address] [facility] [address] Tel: [phone] CULTU RE ----- ----- ----- --- Posit jacek for Strep tococ cus agala ctiae (Grou p B) (Abno rmal) Clind amyci n susce ptibl e, eryth romyc in resis tant. The clind amyci n induc tion test (D-t est) is negat jacek, there fore clind amyci n shoul d be clini mansi effec tive again st this isola te. Not Available [facility] (Lab) [address], [place], [address], 11/28/2024 16:02:38 11/04/19 25 11/03/2024 [place], obste tric, limit ed No observ ation record ed. [address] [place] [address], [address], 11/03/2024 14:22:24 11/04/19 25 11/03/2024 US, obste tric, limit ed No observ ation record ed. [address] [place] [address], [address], 11/03/2024 14:22:46 11/04/19 25 11/03/2024 non-s tress test No observ ation record ed. [address] [facility], [place], [address], 11/03/2024 14:23:27 11/20/19 25 11/19/2024 US, obste tric, follo w-up No observ ation record ed. [email or web address] [address], [place], [address], 11/22/2024 14:56:33 11/20/19 25 11/22/2024 US, obste tric, follo w-up No observ ation record ed. [email or web address] [place] [address], [place], [address], 11/22/2024 12:19:43 11/20/19 25 11/22/2024 US, obste tric, bioph ysica l profi le + non-s tress test No observ ation record ed. [email or web address] [place] [address], [place], [address], 11/22/2024 12:19:52 11/23/19 non-s tress test No observ ation record ed. [email or web address] [place] [address], [place], [address], 11/22/2024 18:00:57 11/25/19 25 11/24/2024 US, obste tric, bioph ysica l profi le + non-s tress test No observ ation record ed. [email or web address] [place] [address], [place], [address], 11/24/2024 11:57:24 11/25/19 25 11/24/2024 US, obste tric, follo w-up No observ ation record ed. [email or web address] [address], [place], [address], 11/30/2024 22:03:38 11/25/19 25 11/24/2024 non-s tress test No observ ation record ed. [place] [address], [place], [address], 11/24/2024 17:56:54 12/04/19 25 12/03/2024 US, obste tric, bioph ysica l profi le No observ ation record ed. [email or web address] [address], [place], [address], 12/03/2024 17:47:45 12/04/19 25 12/03/2024 non-s tress test No observ ation record ed. [email or web address] [place] [address], [place], [address], 12/03/2024 17:17:15 12/04/19 25 12/03/2024 US, obste tric, bioph ysica l profi le + non-s tress test No observ ation record ed. [email or web address] [place] [address], [place], [address], 12/03/2024 17:49:56 Result Notes None recorded. Problems Name Problem SNOMED Code Status Onset Date Resolution Date Notes Provider Name and Address Organization Details Recorded Time Hypothyr oidism 92955118 Active testing Blanca Pierre CNM [address], [place], [address], [facility] 5 13:35:15 Mixed anxiety and depressi ve disorder 527590917 Active 2023 Brenda casey, [facility] 4 15:03:58 Pregnanc y 30597287 Active 2024 Brenda casey, [facility] 5 12:36:08 Obesity 106110109 Active bASA Blanca Pierre CNM [address], [place], [address], [facility] 5 13:35:01 Hypothyr oidism 02365277 Active testing Blanca Pierre CNM [address], [place], [address], [facility] 5 13:35:15 History of vertebra l fracture 924267506 Active as a child, no permanent hardware Blanca Pierre, [facility] [address], [place], [address], [facility] 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 5 12:21:26 Carrier of spinal muscular atrophy 54502507621 5835650 Active Pepper Gamboa er null, [facility] 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 5 16:52:50 Body mass index 30+ - obesity 361115651 Active 2024 start nst 34 wks Brenda Darby [facility], [facility] 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 5 19:30:42 Gestatio nal diabetes mellitus 46709343 Active 2024 1hr gtt >200 checking BS QID DT referral faxed to [facility] 10/14 Gale Douglas [facility] 5 16:18:44 Problem Notes None recorded. Procedures Surgical History Date Name Laterality Status Provider Name and Address Organization Details Recorded Time 4 Date of Last Pap Smear completed Brenda Darby [facility] 05/21/2024 15:02:57 5 extraction of wisdom tooth completed Brenda Darby [facility] 06/18/2024 12:07:52 Imaging Results None [...] Available Not Available Vitals Date Recorded Body weight Body mass index (BMI) Body height Systolic And Diastolic Provider Name and Address Organization Details Last Updated DateTime 11/24/2024 254749.16 279 g 44.4 kg/m2 165.1 cm 102/68 mm[Hg] Chelsey Lam [facility] 11/24/2024 12:17:54 Date Recorded Body height Body mass index (BMI) Body weight Systolic And Diastolic Provider Name and Address Organization Details Last Updated DateTime 12/03/2024 165.1 cm 44.9 kg/m2 523279.94 g 109/64 mm[Hg] My Cabezas [facility] 12/03/2024 15:51:38 Social History Question Answer Notes LastModified by Organizat ion Details LastModified Time Tobacco Smoking Status Never Smoker Brenda Darby carmela, [facility] 09/17/2024 16:52:27 Do You Have An Advance Directive? No [email or web address] Information n ot available 05/21/2024 If You Are , What Was Your Level Of Alcohol Consumption Prior To ? Occasional [email or web address] Information not available 09/17/2024 How Many Years Have You Consumed Alcohol? 10 [email or web address] Information not available 06/18/2024 Are You Blind Or Do You Have Difficulty Seeing? No [email or web address] Information n ot available 05/21/2024 What Is Your Level Of Caffeine Consumption? Occasional [email or web address] Information not available 05/21/2024 How Much Tobacco Do You Chew? None [email or web address] Information not available 05/21/2024 In The 14 Days Before Symptom Onset, Have You Had Close Contact With A Laboratory-confirm ed COVID-19 While That Case Was Ill? No [email or web address] Information n ot available 05/21/2024 In The 14 Days Before Symptom Onset, Have You Had Close Contact With A Person Who Is Under Investigation For COVID-19 While That Person Was Ill? No [email or web address] Information not available 05/21/2024 Have You Been To An Area Known To Be High Risk For COVID-19? No [email or web address] Information not available 05/21/2024 Are You Deaf Or Do You Have Serious Difficulty Hearing? No [email or web address] Information not available 05/21/2024 What Type Of Diet Are You Following? REGULAR [email or web address] Information n ot available 05/21/2024 What Is The Highest Grade Or Level Of School You Have Completed Or The Highest Degree You Have Received? WA93319-1 [email or web address] Information not available 05/21/2024 Are There Any Guns Present In Your Home? No [email or web address] Information not available 05/21/2024 Do You Use Protection During Sex? Usually Information not available 05/21/2024 Do You Use Your Seat Belt Or Car Seat Routinely? Yes [email or web address] Information not available 05/21/2024 Do You Have Smoke And Carbon Monoxide Detectors In Your Home? Yes [email or web address] Information not available 05/21/2024 How Much Tobacco Do You Smoke? No Information not available 05/21/2024 Do You Use Sunscreen Routinely? No [email or web address] Information not available 06/18/2024 Have You Used IV Drugs? No [email or web address] Information not available 05/21/2024 Do You Have Difficulty Walking Or Climbing Stairs? No [email or web address] Information not available 09/17/2024 Sex: Unknown Functional Status Question Answer Note LastModified by Organizat ion Details LastModified Time Do you use any illicit or recreational drugs? Yes Information not available 05/21/2024 What is your level of alcohol consumption? None [email or web address] Information not available 05/21/2024 Are you able to walk? YESWOREST [email or web address] Information not available 05/21/2024 Are you able to care for yourself? 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 No [email or web address] Information not available 09/17/2024 What is your exercise level? Moderate [email or web address] Information not available 05/21/2024 Mental Status Question Answer Note LastModified by Organization D etails LastModified Time Do you feel stressed (tense, restless, nervous, or anxious, or unable to sleep at night)? [id number] [email or web address] Information not available 06/18/2024 Family History Relationship Description Onset Age of this Age Resolved Age Notes LastModified by Organization Details LastModified Time Mother Disorder of thyroid gland [email or web address] Not available 06/18 12:06:42 Maternal Aunt Disorder of thyroid gland [email or web address] Not available 06/18 12:06:42 Maternal Grandmother Disorder of thyroid gland [email or web address] Not available 05/21 15:02:56 Maternal Grandmother Heart disease [email or web address] Not available 11/14 22:55:29 Maternal Grandmother Aneurysm [email or web address] Not available 0 12/03/2024 15:29:38 Father Diabetes mellitus [email or web address] Not available 11/14 22:55:53 Paternal Grandfather Diabetes mellitus Not available 11/14 22:55:53 Medical History Condition Response Allergies (Food, seasonal, environmental ) N Other N Drug/Latex Allergies/Reactions N Breast Cancer N Blood Transfusion N Dermatologic Disorders N [...] SNOMED-CT Code Diagnosis ICD10 Code Diagnosis Note [id number] Neftaly Martinez MD [place] [address] [address] 05/21/2024 12:46:37 05/21/2024 13:54:24 [id number] [facility] [address] [address] 05/21/2024 12:47:07 05/21/2024 15:28:27 Venereal disease screening 577916441 Z11.3 Hypothyroidism 25617861 E03.9 Amenorrhea 89505403 N91. 2 reviewed [place] [id number] Neftaly Martinez MD [place] [address] [address] 06/18/2024 10:47:35 06/18/2024 11:58:48 screening 828922480 Z36.82 Z3A.12 [id number] Blanca Pierre [facility] [address],[place] [address] 06/18/2024 10:47:50 06/18/2024 13:58:43 Routine care 681672490 Z34.90 Gestation period, 12 weeks 30547282 Z3A.12 [id number] [facility] [address],[place] [address] 07/16/2024 15:31:38 07/16/2024 16:33:27 Gestation period, 16 weeks 54892270 Z3A.16 [id number] Neftaly Martinez MD [place] [address],[place] [address] 08/13/2024 15:18:44 08/17/2024 12:02:46 screening for malformation 155685288 Z36.3 O99.210 Z3A.20 [id number] [facility] [address],[place] [address] 08/13/2024 16:13:38 08/16/2024 07:42:40 Gestation period, 20 weeks 74340882 Z3A.20 [id number] Neftaly Martinez MD [place] [address] [address] 09/17/2024 15:48:19 09/17/2024 17:26:49 Follow-up encounter 046830774 Z36.2 O35.EXX0 O43.102 Z3A.25 [id number] Blanca Pierre [facility] [address],[place] [address] 09/17/2024 15:49:13 09/20/2024 00:19:22 Gestation period, 25 weeks 44489609 Z3A.25 [id number] Neftaly Martinez MD [place] [address],[place] [address] 10/12/2024 10:14:01 10/12/2024 11:00:32 Abnormal placenta affecting management of mother 07722529 O43.193 O99.210 O35.EXX0 Z3A.29 [id number] Blanca Pierre [facility] [address],[place] [address] 10/12/2024 10:14:37 10/12/2024 11:47:39 Gestation period, 29 weeks 61247008 Z3A.29 [id number] Blanca Pierre [facility] [address] [place] [address] 10/29/2024 09:39:09 10/29/2024 12:27:14 Gestation period, 31 weeks 75474242 Z3A.31 [id number] Blanca Pierre [facility] [address],[place] [address] 11/12/2024 11:04:36 11/12/2024 13:16:01 Gestation period, 33 weeks 20147756 Z3A.33 [id number] Blanca Pierre [facility] [address],[place] [address] 11/19/2024 15:10:00 11/23/2024 03:53:50 Maternal obesity complicating , childbirth and the puerperium, antepartum 5903968135 07 O99.210 [id number] Neftaly Matrinez MD [place] [address],[place] [address] 11/19/2024 15:11:22 11/22/2024 09:09:47 Obesity 885345913 O99.210 O43.193 Z3A.34 [id number] [facility] [address],[place] [address] 11/19/2024 15:12:35 11/19/2024 16:16:52 Gestation period, 34 weeks 23593460 Z3A.34 Gestationa l diabetes mellitus 11025295 O24.419 [id number] Neftaly Martinez MD [place] [address],[place] [address] 11/24/2024 10:52:05 11/24/2024 11:35:13 Maternal obesity complicating , childbirth and the puerperium, antepartum 8075156658 07 O99.210 O24.410 Z3A.35 [id number] [facility] [address],[place] [address] 11/24/2024 10:54:31 11/24/2024 17:55:01 Obesity 880763908 O99.210 [id number] [facility] [address] [place] [address] 11/24/2024 10:54:51 11/24/2024 20:10:39 [id number] [facility] [address] [place] [address] 11/24/2024 12:00:23 11/24/2024 13:44:03 Gestation period, 35 weeks 29173259 Z3A.35 [id number] [facility] [address] [place] [address] 12/03/2024 15:28:59 12/03/2024 17:18:29 Maternal obesity complicating , childbirth and the puerperium, antepartum 6085431392 07 O99.210 [id number] Neftaly Martinez MD [place] [address] [place] [address] 12/03/2024 15:29:49 12/03/2024 17:43:27 Maternal obesity complicating , childbirth and the puerperium, antepartum 5131864953 07 O99.210 Z3A.36 [id number] Blanca Pierre, DIRK [place] [address] [address] 12/03/2024 15:30:03 12/03/2024 17:07:36 Gestation period, 36 weeks 63414916 Z3A.36 Health Concerns Section Related Observation LastModified by Organization Detai ls LastModified Time None Recorded Concern Status LastModified by Organization Details LastModified Time None Recorded Advance Directives Directive N: Payers Insurance Date Sequence Insurance Name Policy Number Policy Gaona Covered Member ID Gaona Member ID Guarantor Name 12/02/2024 1 [place] ([place] [id number] 1 Sheba Mike [id number] Sheba Mike 11/30/2024 2 [facility] [id number] Bakari Qiu [id number] Sheba Mike OBGyn Episode Ob Episode Information Episode Created Date Number of Fetuses Patient Bloodtype Patient rh Status Prepregnancy Weight lbs Domestic Partner Domestic Partner Phone Father Name Professional Caster Status 06/18/19 25 1 O Positive 257 Bakari Diaz OPEN Fetus Data First Name Last Name Admitted to NICU Weight (g) Sex Living Outcome Pediatric Complications Fetus ID Race Codes Race Delivery Type [id number] Problems Problem Notes 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 Low risk fetus. Pt discussing genetic counseling and partner testing with SO. MK, RNMild right pyelectasisDBL left renal artery+ GBS Problem Name Start Date End Date Resolution Snomed Code Not e Obesity 574469638 bASA Dilatation of renal pelvis 646903346 Marginal insertion of umbilical cord 73052913 growth Q 4 Carrier of spinal muscular atrophy 446824277005058648 Carrier of cystic fibrosis gene mutation 451602546 Hypothyroidism 90351875 anten atal testing History of vertebral fracture 310340154 as a child, no permanent hardware Gestational diabetes mellitus 10/14/2024 63244556 1hr gtt >200 checking BS QID DT referral faxed to [facility] 10/14 Yusef Calculation Initial Yusef Date Initial Exam Date Initial Exam Provider Initial Ultrasound Date Last Menstrual Period Date Ultra Sound Weeks Gestation 12/25/2024 05/21/2024 Blanca Harmonjacquelyn 05/21/2024 03/20/2024 9 Eighteen To Twenty Week [...] Weight in lbs Pre/Post Dialysis Refused Weight 256.695280910681 BP Diastolic BP Location Tested BP Systolic [...] Type Weight in lbs Pre/Post Dialysis Refused 254.736744340188 BP Diastolic BP Location Tested BP Systolic [...] Type Weight in lbs Pre/Post Dialysis Refused 257.512906063847 BP Diastolic BP Location Tested BP Systolic [...] Weight in lbs Pre/Post Dialysis Refused Weight 263.671667357660 BP Diastolic BP Location Tested BP Systolic [...] Type Weight in lbs Pre/Post Dialysis Refused 263.854084131842 BP Diastolic BP Location Tested BP Systolic [...] Weight in lbs Pre/Post Dialysis Refused Weight 266.574201907011 BP Diastolic BP Location Tested BP Systolic BP Type 63 97 Fetus Heart Rate Present A 146 Present Fetus Movement Comments doing well, GDM diagnosed an d reviewed blood sugars, wnl, saw news content specialist and doing well with diet, +FM precautions and education, ok for tdap, call for preadmit f/u 2 weeks Flowsheet Date 11/12/2024 Arndt Score Blood Edema Fundus Height Fundus Units Glucose Ketones Leukocytes Nitrite Labor Signs Protein Cervic Dilation Cervic Effacement Cervic Station neg none 32 cm Type Weight in lbs Pre/Post Dialysis Refused Weight 264.635309974286 BP Diastolic BP Location Tested BP Systolic [...] Type Weight in lbs Pre/Post Dialysis Refused 266.569656161675 BP Diastolic BP Location Tested BP Systolic [...] Type Weight in lbs Pre/Post Dialysis Refused 266.167467291186 BP Diastolic BP Location Tested BP Systolic [...] Type Weight in lbs Pre/Post Dialysis Refused 267.918418361362 BP Diastolic BP Location Tested BP Systolic [...] Weight in lbs Pre/Post Dialysis Refused Weight 270.614031006524 BP Diastolic BP Location Tested BP Systolic [...]
--- OUTSIDE RECORDS SUMMARY | 2024-12-04 07:14 | XMS_ITS | Continuity of Care Document ---
Author Organization [facility] Address [address] [place] [address] [place] [address] Care Team Providers Care Movie Theater Manager Name Role Phone STEFANIE NASH Primary Care Provider Assessment No assessment recorded. Plan of Treatment Reminders Order Date Submit Date Provider Last Modified By Organization Details Last Modified Time Details Appointments U/S OB BPP 2024 02:30P M ULTRASOUND Not available Not available Not available NST 2024 03:00P M NST SCHEDULE Not available Not available Not available OB ROUTINE 2024 03:30P M Blancapema Lonoge, CNM Not available Not available Not available [...] recorde d. Surgeries None recorde d. Imaging non-str ess test 2024 025 [email or web address] [facility], [address], [place], [address], 12/03/2024 17:18:25 Medication Orders None recorde d. Patient TargetsNo targets recorded. Patient InstructionsNo instructions recorded. Reason for Referral None Reported. Results Created Date Observation Date Name Description Value Unit Range Abnormal Flag Note LastModifiedBy Organization Detail LastModifiedTime 06/18/19 25 06/18/2024 US, obste tric, nucha l trans lucen cy No observ ation record ed. [facility] [address], [place], [address], 06/18/2024 17:53:02 06/18/19 25 06/18/2024 US, obste tric, nucha l trans lucen cy No observ ation record ed. [email or web address] [address], [place], [address], 06/19/2024 21:22:07 08/14/19 25 08/13/2024 US, obste tric, 2nd or 3rd trime ster No observ ation record ed. [email or web address] [address], [place], [address], 08/26/2024 19:32:07 08/14/19 25 08/13/2024 US, obste tric, 2nd or 3rd trime ster No observ ation record ed. [facility] [address], [place], [address], 08/13/2024 18:17:22 09/18/19 25 09/20/2024 US, obste tric, follo w-up No observ ation record ed. [facility] [address], [place], [address], 09/20/2024 17:55:02 09/18/19 25 09/17/2024 US, obste tric, follo w-up No observ ation record ed. [email or web address] [address], [place], [address], 09/21/2024 17:38:11 10/13/19 25 10/12/2024 US, obste tric, follo w-up No observ ation record ed. [email or web address] [facility] [address], [place], [address], 10/12/2024 11:44:39 10/13/19 25 10/12/2024 US, obste tric, follo w-up No observ ation record ed. [email or web address] [address], [place], [address], 10/21/2024 11:04:59 11/04/19 25 11/03/2024 US, obste tric, limit ed No observ ation record ed. [address] [facility], [place], [address], 11/03/2024 14:22:24 11/04/19 25 11/03/2024 US, obste tric, limit ed No observ ation record ed. [address] [facility], [place], [address], 11/03/2024 14:22:46 11/04/19 25 11/03/2024 non-s tress test No observ ation record ed. [address] [facility], [place], [address], 11/03/2024 14:23:27 11/20/19 25 11/19/2024 US, obste tric, follo w-up No observ ation record ed. [email or web address] [address], [place], [address], 11/22/2024 14:56:33 11/20/19 25 11/22/2024 US, obste tric, follo w-up No observ ation record ed. [email or web address] [facility] [address], [place], [address], 11/22/2024 12:19:43 11/20/19 25 11/22/2024 US, obste tric, bioph ysica l profi le + non-s tress test No observ ation record ed. [email or web address] [facility] [address], [place], [address], 11/22/2024 12:19:52 11/23/19 non-s tress test No observ ation record ed. [email or web address] [facility] [address], [place], [address], 11/22/2024 18:00:57 11/25/1911/24/2024 US, obste tric, bioph ysica l profi le + non-s tress test No observ ation record ed. [email or web address] [facility] [address], [place], [address], 11/24/2024 11:57:24 11/25/19 25 11/24/2024 US, obste tric, follo w-up No observ ation record ed. [email or web address] [address], [place], [address], 11/30/2024 22:03:38 11/25/19 25 11/24/2024 non-s tress test No observ ation record ed. [email or web address] [facility] [address], [place], [address], 11/24/2024 17:56:54 12/04/19 25 12/03/2024 US, obstbria tric, bioph ysica l profi le No observ ation record ed. [email or web address] [address], [place], [address], 12/03/2024 17:47:45 12/04/19 25 12/03/2024 non-s tress test No observ ation record ed. [email or web address] [facility] [address], [place], [address], 12/03/2024 17:17:15 12/04/19 25 12/03/2024 US, obste tric, bioph ysica l profi le + non-s tress test No observ ation record ed. [email or web address] [facility] [address], [place], [address], 12/03/2024 17:49:56 Result Notes None recorded. 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 5 13:35:15 Mixed anxiety and depressi ve disorder 103439737 Active 2023 Brenda casey, [facility] 4 15:03:58 Pregnanc y 07398354 Active 2024 Brenda Darby null, [facility] 5 12:36:08 Obesity 967785299 Active bASA Blanca Pierre CNM [address], [place], [address], [facility] 5 13:35:01 Hypothyr oidism 91802230 Active testing Blanca Pierre CNM [address], [place], [address], [facility] 5 13:35:15 History of vertebra l fracture 594492370 Active as a child, no permanent hardware Blanca Pierre CNM [address], [place], [address], [facility] 5 13:35:49 Carrier of cystic fibrosis gene mutation 222124359 Active [facility], [facility] 5 12:21:26 Carrier of spinal muscular atrophy 53664514350 1490922 Active [facility], [facility] 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 5 16:52:50 Body mass index 30+ - obesity 338770602 Active 2024 start nst 34 wks Brenda Darby [facility] 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 5 19:30:42 Gestatio nal diabetes mellitus 68058012 Active 2024 1hr gtt >200 checking BS QID DT referral faxed to [facility] 10/14 Gale Douglas [facility] 5 16:18:44 Problem Notes None recorded. Procedures Surgical History Date Name Laterality Status Provider Name and Address Organization Details Recorded Time 4 Date of Last Pap Smear completed Brenda Darby [facility] 05/21/2024 15:02:57 5 extraction of wisdom tooth completed Brenda Darby [facility] 06/18/2024 12:07:52 Imaging Results None [...] Updated DateTime 12/03/2024 165.1 cm 44.9 kg/m2 302381.94 g 109/64 mm[Hg] My Cabezas [facility] 12/03/2024 15:51:38 Social History Question Answer Notes LastModified by Organizat ion Details LastModified Time Tobacco Smoking Status Never Smoker Brenda casey, [facility] 09/17/2024 16:52:27 Do You Have An Advance Directive? No [email or web address] Information n ot available 05/21/2024 If You Are , What Was Your Level Of Alcohol Consumption Prior To ? Occasional [email or web address] Information not available 09/17/2024 How Many Years Have You Consumed Alcohol? 10 Information not available 06/18/2024 Are You Blind Or Do You Have Difficulty Seeing? No Information n ot available 05/21/2024 What Is Your Level Of Caffeine Consumption? Occasional [email or web address] Information not available 05/21/2024 How Much Tobacco Do You Chew? None [email or web address] Information not available 05/21/2024 In The 14 Days Before Symptom Onset, Have You Had Close Contact With A Laboratory-confirm ed COVID-19 While That Case Was Ill? No [email or web address] Information n ot available 05/21/2024 In The 14 Days Before Symptom Onset, Have You Had Close Contact With A Person Who Is Under Investigation For COVID-19 While That Person Was Ill? No [email or web address] Information not available 05/21/2024 Have You Been To An Area Known To Be High Risk For COVID-19? No [email or web address] Information not available 05/21/2024 Are You Deaf Or Do You Have Serious Difficulty Hearing? No [email or web address] Information not available 05/21/2024 What Type Of Diet Are You Following? REGULAR [email or web address] Information n ot available 05/21/2024 What Is The Highest Grade Or Level Of School You Have Completed Or The Highest Degree You Have Received? DL56469-4 [email or web address] Information not available 05/21/2024 Are There Any Guns Present In Your Home? No [email or web address] Information not available 05/21/2024 Do You Use Protection During Sex? Usually [email or web address] Information not available 05/21/2024 Do You Use Your Seat Belt Or Car Seat Routinely? Yes [email or web address] Information not available 05/21/2024 Do You Have Smoke And Carbon Monoxide Detectors In Your Home? Yes [email or web address] Information not available 05/21/2024 How Much Tobacco Do You Smoke? No [email or web address] Information not available 05/21/2024 Do You Use Sunscreen Routinely? No [email or web address] Information not available 06/18/2024 Have You Used IV Drugs? No [email or web address] Information not available 05/21/2024 Do You Have Difficulty Walking Or Climbing Stairs? No [email or web address] Information not available 09/17/2024 Sex: Unknown Functional Status Question Answer Note LastModified by Organizat ion Details LastModified Time Do you use any illicit or recreational drugs? Yes [email or web address] Information not available 05/21/2024 What is your level of alcohol consumption? None [email or web address] Information not available 05/21/2024 Are you able to walk? YESWOREST [email or web address] Information not available 05/21/2024 Are you able to care for yourself? 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 No [email or web address] Information not available 09/17/2024 What is your exercise level? Moderate [email or web address] Information not available 05/21/2024 Mental Status Question Answer Note LastModified by Organization D etails LastModified Time Do you feel stressed (tense, restless, nervous, or anxious, or unable to sleep at night)? [id number] [email or web address] Information not available 06/18/2024 Family History Relationship Description Onset Age of this Age Resolved Age Notes LastModified by Organization Details LastModified Time Mother Disorder of thyroid gland [email or web address] Not available 06/18 12:06:42 Maternal Aunt Disorder of thyroid gland [email or web address] Not available 06/18 12:06:42 Maternal Grandmother Disorder of thyroid gland [email or web address] Not available 05/21 15:02:56 Maternal Grandmother Heart disease Not available 11/14 22:55:29 Maternal Grandmother Aneurysm [email or web address] Not available 0 12/03/2024 15:29:38 Father Diabetes mellitus [email or web address] Not available 11/14 22:55:53 Paternal Grandfather Diabetes mellitus [email or web address] Not available 11/14 22:55:53 Medical History Condition Response Other N Blood Transfusion N Dermatologic Disorders N Gestational Diabetes N Anxiety Disorder Y Autoimmune disease N Arthritis N Polyps N Infertility N Acid Reflux (GERD) N Cancer N Varicosities N Stroke N Neurologic/Epilepsy N Fibromyalgia N Headaches N Kidney Disease N Heart Problems N Kidney or Bladder Problems N Eating Disorder N Art (IVF or FET) N Hepatitis/Liver Disease N No Past Medical History N Urinary Tract Infection N Asthma N Trauma/Violence N Thrombophilias N Allergies (Food, seasonal, environmental ) N Breast Cancer N Drug/Latex Allergies/Reactions N Lung Disease N Defects or Inherited Disease N Breast Problem N Hematologic disorders N Anesthesia Complications N History of STI N Deep Vein Thrombosis N Polycystic ovary syndrome N History of abnormal pap N Endometriosis N High Cholesterol N Thyroid Problems Y GI Problems N Anemia N Psychiatric Illness N Ovarian Cancer N Diabetes N Pulmonary (TB, Asthma) N Eczema N Abuse/Domestic Violence N Depression/ depression Y Heart Disease N Pre-Eclampsia N Hypertension N Osteoporosis N Gynecological History Statement/Question Response Abnormal Pap [...] SNOMED-CT Code Diagnosis ICD10 Code Diagnosis Note [id number] Blanca Pierre [facility] [address],[place] [address] 11/12/2024 11:04:36 11/12/2024 13:16:01 Gestation period, 33 weeks 44563893 Z3A.33 [id number] [facility] [address],[place] [address] 11/19/2024 15:10:00 11/23/2024 03:53:50 Maternal obesity complicating , childbirth and the puerperium, antepartum 4796926838 07 O99.210 [id number] Neftaly Martinez MD [facility] [address],[place] [address] 11/19/2024 15:11:22 11/22/2024 09:09:47 Obesity 927893763 O99.210 O43.193 Z3A.34 [id number] Blanca Pierre [facility] [address],[place] [address] 11/19/2024 15:12:35 11/19/2024 16:16:52 Gestation period, 34 weeks 81090907 Z3A.34 Gestationa l diabetes mellitus 56617567 O24.419 [id number] Neftaly Martinez MD [facility] [address],[place] [address] 11/24/2024 10:52:05 11/24/2024 11:35:13 Maternal obesity complicating , childbirth and the puerperium, antepartum 9990622103 07 O99.210 O24.410 Z3A.35 [id number] Blanca Pierre [facility] [address],[place] [address] 11/24/2024 10:54:31 11/24/2024 17:55:01 Obesity 749177708 O99.210 [id number] Blanca Pierre [facility] [address],[place] [address] 11/24/2024 10:54:51 11/24/2024 20:10:39 [id number] Blanca Pierre [facility] [address],[place] [address] 11/24/2024 12:00:23 11/24/2024 13:44:03 Gestation period, 35 weeks 14872570 Z3A.35 [id number] Blanca Pierre [facility] [address],[place] [address] 12/03/2024 15:28:59 12/03/2024 17:18:29 Maternal obesity complicating , childbirth and the puerperium, antepartum 8243230403 07 O99.210 [id number] Neftaly Martinez MD [facility] [address],[place] [address] 12/03/2024 15:29:49 12/03/2024 17:43:27 Maternal obesity complicating , childbirth and the puerperium, antepartum 6488497674 07 O99.210 Z3A.36 [id number] Blanca Pierre, [facility] [address] [address] 12/03/2024 15:30:03 12/03/2024 17:07:36 Gestation period, 36 weeks 66569370 Z3A.36 Health Concerns Section Related Observation LastModified by Organization Detai ls LastModified Time None Recorded Concern Status LastModified by Organization Details LastModified Time None Recorded Payers Encounter Date Sequence Insurance Name Policy Number Policy Gaona Covered Member ID Gaona Member ID Guarantor Name 12/03/2024 1 [place] (PP[place]) [id number] 1 Sheba Mike [id number] Sheba Mike 12/03/2024 2 [facility] [id number] Bakari Qiu [id number] Sheba Mike OBGyn Episode Ob Episode Information Episode Created Date Number of Fetuses Patient Bloodtype Patient rh Status Prepregnancy Weight lbs Domestic Partner Domestic Partner Phone Father Name Manager Retail Sales Status 06/18/19 25 1 O Positive 257 Bakari Emily OPEN Fetus Data First Name Last Name Admitted to NICU Weight (g) Sex Living Outcome Pediatric Complications Fetus ID Race Codes Race Delivery Type [id number] Problems Problem Notes 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 Low risk fetus. Pt discussing genetic counseling and partner testing with SO. MK, RNMild right pyelectasisDBL left renal artery+ GBS Problem Name Start Date End Date Resolution Snomed Code Not e Obesity 527035162 bASA Dilatation of renal pelvis 506091443 Marginal insertion of umbilical cord 69451104 growth Q 4 Carrier of spinal muscular atrophy 978230561290952515 Carrier of cystic fibrosis gene mutation 204683977 Hypothyroidism 68799637 anten atal testing History of vertebral fracture 557011955 as a child, no permanent hardware Gestational diabetes mellitus 10/14/2024 78393768 1hr gtt >200 checking BS QID DT referral faxed to [facility] 10/14 Yusef Calculation Initial Yusef Date [...] Weight in lbs Pre/Post Dialysis Refused Weight 256.840428882852 BP Diastolic BP Location Tested BP Systolic [...] Type Weight in lbs Pre/Post Dialysis Refused 254.588121338075 BP Diastolic BP Location Tested BP Systolic [...] Type Weight in lbs Pre/Post Dialysis Refused 257.110545120194 BP Diastolic BP Location Tested BP Systolic [...] Weight in lbs Pre/Post Dialysis Refused Weight 263.272310594908 BP Diastolic BP Location Tested BP Systolic [...] Type Weight in lbs Pre/Post Dialysis Refused 263.566002831439 BP Diastolic BP Location Tested BP Systolic [...] Weight in lbs Pre/Post Dialysis Refused Weight 266.558770804839 BP Diastolic BP Location Tested BP Systolic BP Type 63 97 Fetus Heart Rate Present A 146 Present Fetus Movement Comments doing well, GDM diagnosed an d reviewed blood sugars, wnl, saw commercial lines sales executive and doing well with diet, +FM precautions and education, ok for tdap, call for preadmit f/u 2 weeks Flowsheet Date 11/12/2024 Arndt Score Blood Edema Fundus Height Fundus Units Glucose Ketones Leukocytes Nitrite Labor Signs Protein Cervic Dilation Cervic Effacement Cervic Station neg none 32 cm Type Weight in lbs Pre/Post Dialysis Refused Weight 264.387941644571 BP Diastolic BP Location Tested BP Systolic [...] Type Weight in lbs Pre/Post Dialysis Refused 266.603001284548 BP Diastolic BP Location Tested BP Systolic [...] Type Weight in lbs Pre/Post Dialysis Refused 266.549203892068 BP Diastolic BP Location Tested BP Systolic [...] Type Weight in lbs Pre/Post Dialysis Refused 267.797282579104 BP Diastolic BP Location Tested BP Systolic [...] Present Fetus Movement Comments Flowsheet Date 12/03/2024 Anrdt Score Blood Edema Fundus Height Fundus Units [...] Weight in lbs Pre/Post Dialysis Refused Weight 270.557310219424 BP Diastolic BP Location Tested BP Systolic [...]
[2024-12-04 07:15] VITALS: BP 88/45; PULSE 79
[2024-12-04 07:17] VITALS: BP 98/53; PULSE 85
[2024-12-04 08:00] VITALS: BMI 42.3
[2024-12-04 08:53] LABS: OBXCEM ROM Plus Negative (Negative)
--- NOTE | 2025-01-02 21:11 | PM.OBTRLD ---
OB - Triage/Final Diagnosis Visit Information Comments/Additional reasons for admission: I have assessed the risk for this patient, Sheba Qiu, and determined that she would benefit from observation care. Evaluation Laboratory results: Laboratory Tests 12/04/24 07:00 Membranes Rupture Rom plus negative Final Diagnosis (1) False labor: Code(s): O47.9 - False labor, unspecified Status: Acute
== END 2024-12-04 08:20 | disposition home or self-care (01) ==
PROVIDERS: Admitting Provider Obstetrics & Gynecology; PCP Internal Medicine; Visit Provider Obstetrics & Gynecology
DX: O47.1 False labor at or after 37 completed weeks of gestation (principal); Z3A.37 37 weeks gestation of pregnancy
CPT/HCPCS: 59025; 84112; G0378; G0379

== ENCOUNTER 2024-12-23 12:20 | Inpatient (IN) | payer BC, OTHER, SELFPAY ==
[2024-12-23] VITALS (113 sets, daily range): BP systolic 94–130; BP diastolic 46–84; PULSE 66–104; TEMP 35.8–37.1; O2SAT 87–100; BMI 42.3
[2024-12-23 14:01] LABS: Hematocrit 34.8 % (37.0-47.0); Hemoglobin 11.2 g/dL (12.0-15.0); Immature Granulocyte Percent A 0.9 % (0-0.5); Lymphocytes Absolute Auto 1.87 K/mm3 (0.9-3.2); Mean Corpuscular HGB Conc 32.2 g/dl (32-36); Mean Corpuscular Hemoglobin 28.0 pg (26-34); Mean Corpuscular Volume 87.0 fl (80-100); Nucleated Red Blood Cells Absolute Auto 0.000 K/mm3 (0.0-0.012); Nucleated Red Blood Cells Perc 0.0 % (0.0-0.2); Platelet Count Result 180 k/mm3 (150-375); Red Blood Count 4.00 M/mm3 (4.2-5.4); White Blood Count 16.1 K/mm3 (4.5-10.0)
[2024-12-23] MEDS: LACTATED RINGERS 1,000 ML 125 ML IV CONT ×2 (14:24→19:00)
[2024-12-23] MEDS: AMPICILLIN SODIUM 2 GM in SODIUM CHLORIDE 0.9% IV 100 ML 200 ML IVPB (14:26)
--- NOTE | 2024-12-23 14:38 | LDADM ---
This patient, Sheba Qiu, was admitted to Labor/Delivery/Recovery 106 on 12/23/24 at 12:20. Plans for labor, pain management and were discussed with patient. Patient/family oriented to hospital policies and general routines including ID bracelet, bed and alarms, visiting hours, pain management, procedures, bathroom and other care routines, personal items, smoking policy, room service/diet and guest tray routines, security routines, and visiting hours. Patient/Family are encouraged to report perceived risks to care and to ask questions if they do not understand what they are told or what they should do. See OBIX for further documentation.
[2024-12-23 16:19] LABS: OBXCEM ROM Plus Positive (Negative)
[2024-12-23] MEDS: fentaNYL CITRATE INJ (*CRX) 100 MCG/2 ML VIAL 50 MCG IV PUSH (16:33)
[2024-12-23 16:37] LABS: Syphilis IgG/IgM Antibody Non-Reactive (Nonreactive)
[2024-12-23] MEDS: fentaNYL CITRATE INJ (*CRX) 100 MCG/2 ML VIAL IV PUSH (18:00)
--- NOTE | 2024-12-23 18:53 | WPDANESEPPF ---
Anes - Initial Pre Proc Eval Procedure: labor epidural Date/Time: 12/23/24 18:53 Surgeon: Neftaly Matamoros MD Pre Op Diagnosis: labor pain Pre Op Diagnosis: Labor Patient Data Age: 29 Gender: F Height: 1.7 m Weight: 122.7 kg Last Vital Signs Temp 35.8 C L 12/23/24 17:04 Pulse 91 12/23/24 18:50 BP 118/70 12/23/24 18:50 Pulse Ox 98 12/23/24 18:48 O2 Del Method Room Air 12/23/24 14:28 Allergies Allergy/AdvReac Type Severity Reaction Status Date / Time coconut Allergy Rash Verified 11/24/24 15:54 horseradish Allergy Rash Verified 11/24/24 15:54 mint leaves Allergy Severe Swelling Uncoded 11/24/24 15:54 of Lip/Tongue/Throat Home Medications ?Medication ?Instructions ?Recorded ?Confirmed ?Type aspirin 81 mg tablet 81 mg PO HS 11/03/24 12/04/24 History ferrous sulfate 142 mg (45 mg 142 mg PO DAILY@0800 11/03/24 12/04/24 History iron) tablet,extended release (Slow Release Iron) levothyroxine 75 mcg tablet 75 mcg PO DAILY@0630 11/03/24 12/04/24 History vit no.95-ferrous 1 tablet PO HS 11/03/24 12/04/24 History fumarate 28 mg-folic acid 800 mcg tablet () Laboratory Tests 12/23/24 12/23/24 12/23/24 13:49 13:50 16:06 WBC 16.1 H K/mm3 (4.5-10.0) RBC 4.00 L M/mm3 (4.2-5.4) Hgb 11.2 L g/dL (12.0-15.0) Hct 34.8 L % (37.0-47.0) MCV 87.0 fl (80-100) MCH 28.0 pg (26-34) MCHC 32.2 g/dl (32-36) RDW 15.9 H % (11.5-14.5) Plt Count 180 k/mm3 (150-375) MPV 12.2 H fl (7.4-10.4) Immature Gran % (Auto) 0.9 H % (0-0.5) Neut % (Auto) 80.8 H % (45.5-73.1) Lymph % (Auto) 11.6 L % (18.3-44.2) [place] % (Auto) 5.7 % (2.6-8.5) Eos % (Auto) 0.7 % (0-4.4) Baso % (Auto) 0.3 % (0.2-1.2) Lymph # (Auto) 1.87 K/mm3 (0.9-3.2) [place] # (Auto) 0.9 H K/mm3 (0.1-0.6) Eos # (Auto) 0.1 K/mm3 (0-0.3) Baso # (Auto) 0.1 K/mm3 (0.0-0.1) Abs Immat Gran (auto) 0.14 H K/mm3 (0.00-0.031) Absolute Neuts (auto) 13.0 H K/mm3 (1.3-6.7) Absolute Nucleated RBC 0.000 K/mm3 (0.0-0.012) Nucleated RBC % 0.0 % (0.0-0.2) POC Capillary Glucose 104 mg/dl (65-105) Membranes Rupture Syphilis IgG/IgM Ab Non-reactive (Nonreactive) Blood Type O Positive Antibody Screen Negative 12/23/24 16:17 WBC RBC Hgb Hct MCV MCH MCHC RDW Plt Count MPV Immature Gran % (Auto) Neut % (Auto) Lymph % (Auto) [place] % (Auto) Eos % (Auto) Baso % (Auto) Lymph # (Auto) [place] # (Auto) Eos # (Auto) Baso # (Auto) Abs Immat Gran (auto) Absolute Neuts (auto) Absolute Nucleated RBC Nucleated RBC % POC Capillary Glucose Membranes Rupture Rom plus positive (Negative) Syphilis IgG/IgM Ab Blood Type Antibody Screen Patient hx anesthesia problems: none Family hx anesthesia problems: none Results Review: All pre-operative results and documents have been reviewed as part of the pre-operative evaluation. [facility] Past Medical History Medical History (Updated 12/23/24 @ 18:55 by Huang Richards DO) Thyroid disorder GDM (gestational diabetes mellitus) Nausea and vomiting Family History Family History (Updated 11/24/24 @ 15:58 by Lilo A. Saboff, RN) Father Diabetes mellitus Depression Hypertension High cholesterol Mother Depression Social History Social History Smoking status: Never smoker Second hand tobacco smoke exposure: No Alcohol intake: current Substance use: former Do You Feel Safe in your Home?: Yes Lack of Transportation: No Lack of Food: Never True Current Housing: I Have Housing Concerned About Future Housing: No Difficulty Paying Gas/Electric Bills: No Difficulty Paying for Meds: No Currently Unemployed: No Education: High School Diploma/GED Difficulty w/ Childcare or Family Care: No Living arrangements: with family Gender identity (if verbalized by the patient): Female Spiritual care concerns: No Anes - Eval Final PreProcedure Day of Procedure 12/23/24 18:53 Patient weight: morbidly obese ASA classification: III Anesthetic plan: proceed Anesthesia type and monitoring: regional epidural and standard monitoring Results Review: All pre-operative results and documents have been reviewed as part of the pre-operative evaluation. Informed Consent: The patient's anesthetic plan and its attendant risks and benefits were discussed with the patient/family/POA. Questions were solicited and answers provided to the satisfaction of the patient/family/POA.
[2024-12-23] MEDS: AMPICILLIN SODIUM 1 GM in SODIUM CHLORIDE 0.9% IV 50 ML 100 ML IVPB ×2 (19:00→23:19)
--- NOTE | 2024-12-23 19:57 | WPDOBADMIT ---
Obstetrics - Admit Note Admission Note: record reviewed. No pertinent additions to the history and/or any subsequent changes in the physical findings that are not consistent with the expected course of the were found. Additions to the history and/or subsequent changes in the physical findings follow. Admit SROM, hx GDM, SVE /-2 IUPC placed, anticipate vaginal delivery
[2024-12-23] MEDS: OXYTOCIN 30 UNITS/NS 500 ML 30 UNITS/500 ML BAG IV CONT (20:25)
[2024-12-24] VITALS (32 sets, daily range): BP systolic 108–125; BP diastolic 61–78; PULSE 64–113; RESP 16–18; TEMP 36.4–36.8; O2SAT 74–100
--- NOTE | 2024-12-24 00:27 | PM.OBPRVD ---
OB - Vaginal Delivery Note Procedure Delivery date: 12/24/24 Events: Gestational Diabetes Delivery augmentation: Pitocin Delivery monitor: Internal FHT and Internal Uterine Route of delivery: Episiotomy description: None Laceration Description: None Specimen: No Quantitative Blood Loss (ml): 125 Anesthesia type: Epidural Disposition: Floor Complications: No immediate complications Baby Date of : 12/24/24 Time of : 12:13 Gestational Age by Date: 39 Infant gender: Male presentation: vertex position: Left Occiput Anterior Placenta delivery description: Expressed Cord Vessel Description: Clamped/Cut and Delayed Cord Clamping score one minute: 8 score five minutes: 9
[2024-12-24] MEDS: OXYTOCIN 30 UNITS/NS 500 ML 30 UNITS/500 ML BAG 999 UNITS IV CONT (00:49)
[2024-12-24] MEDS: LEVOTHYROXINE SODIUM 75 MCG TABLET PO (08:06)
--- NOTE | 2024-12-24 08:50 | PC.NURSE ---
Introductions were made, then consulted with patient to assess needs related to . Discussed with mother her?plans to feed?her and the?experience so far. Baby latched well at the first feeding and then has bottle fed since. Mom states that she has inverted nipples and she knows will be a struggle for her. She is encouraged to call out for assistance with feedings today so that we may assist her with latching and positioning. Resources provided for inpatient and outpatient services with the feeding sheet, mom/baby guide and name written on the communication board. Mother voiced understanding of information and will call if there is a request for assistance. Reported to the Primary RN.
[2024-12-24] MEDS: MULTIVIT/MIN/PREN/FOL AC/IRON TABLET 1 TAB PO (10:15)
--- NOTE | 2024-12-24 16:40 | PC.NURSE ---
Patient requested help. She has inverted nipples and does have a nipple shield but hasn't used it yet. Baby is awake and eager and mom is holding him in a cradle position on the left breast. Mom is able to express large drop of colostrum to entice baby. He is a tongue sucker and pushes the breast out of his mouth when attempting to latch. We worked with him until we got a really wide gape and he latched and maintained with consistent suckling. Mom holds him and her breast well and just needed some positioning education. We reviewed use of the shield if needed. Patient will call out for further assistance as needed. Primary RN updated.
[2024-12-24] MEDS: IBUPROFEN 600 MG TABLET PO (20:07)
[2024-12-25 05:11] LABS: Hematocrit 31.8 % (37.0-47.0); Hemoglobin 9.8 g/dL (12.0-15.0)
[2024-12-25] MEDS: ONDANSETRON HCL ODT 4 MG TABLET PO (05:55)
[2024-12-25 07:15] VITALS: BP 113/69; PULSE 62; RESP 16; TEMP 36.4; O2SAT 100
[2024-12-25] MEDS: LEVOTHYROXINE SODIUM 75 MCG TABLET PO (07:27)
[2024-12-25] MEDS: MULTIVIT/MIN/PREN/FOL AC/IRON TABLET 1 TAB PO (08:32)
--- NOTE | 2024-12-25 11:36 | WPDANLDPN2 ---
Anes-Prog Note L&D Date/Time: 12/25/24 11:36 Comfortable throughout: labor and delivery Neuraxial method: epidural Epidural/Spinal procedure site: clean & non-tender Neuro status: Neuro function grossly intact. Cardiovascular status: normal Respiratory status: normal Airway patency: baseline Mental status: baseline Post-Op hydration status: normal Vital Signs: Last Vital Signs Temp 97.6 F 12/25/24 07:15 Pulse 62 12/25/24 07:15 Resp 16 12/25/24 07:15 BP 113/69 12/25/24 07:15 Pulse Ox 100 12/25/24 07:15 O2 Del Method Room Air 12/24/24 20:30 Pain score (VAS): 2 I/O: Intake & Output 12/24/24 12/25/24 12/25/24 23:59 07:59 15:59 Intake Total 240 Balance 240 Post-procedural complaints: none Patient feedback: Patient satisfied with anesthetic care.
--- NOTE | 2024-12-25 11:40 | P.PNOB_ITS ---
OB - PN: Subj Subjective Date/time seen: 12/25/24 11:40 Patient comments: no complaints, pain well controlled, incisional pain, tolerating diet and flatus present OB - PN: Obj Data Labs 12/25/24 04:16 Labs: Laboratory Results - last 24 hr 12/25/24 04:16 Hgb 9.8 L Hct 31.8 L OB - PN A/P Plan day: 1 Plan: routine care Comments: No problems, routine care Time Spent With Patient Time: Total time spent is greater than 50% in coordination of care (as documented) at patient's floor/unit and/or counseling patient: Exam 2 Const: General: comfortable, no acute distress and alert Resp: Effort & Inspection: normal respiratory effort Auscultation: no crackles, no rales and no rhonchi Cardio: Rate: regular rate Heart sounds: no click, no murmurs and no rubs GI: Inspection: non-distended GI Palp: No Tenderness to palpation present (GI) Auscultation: normal bowel sounds Other: Incision - CDI Extrem: General: normal to inspection, no pedal edema and no calf tenderness
[2024-12-25] MEDS: IBUPROFEN 600 MG TABLET PO (17:00)
[2024-12-25 19:07] VITALS: BP 115/80; PULSE 79; RESP 17; TEMP 37; O2SAT 99
[2024-12-26] MEDS: IBUPROFEN 600 MG TABLET PO (05:36)
[2024-12-26] MEDS: LEVOTHYROXINE SODIUM 75 MCG TABLET PO (07:10)
[2024-12-26] MEDS: MULTIVIT/MIN/PREN/FOL AC/IRON TABLET 1 TAB PO (07:10)
[2024-12-26 07:20] VITALS: BP 131/73; PULSE 72; RESP 18; TEMP 36.6; O2SAT 100
--- NOTE | 2024-12-26 10:46 | P.PNOB_ITS ---
OB - PN: Subj Subjective Date/time seen: 12/26/24 10:46 Patient comments: no complaints, pain well controlled and tolerating diet OB - PN: Obj Data Labs 12/25/24 04:16 OB - PN A/P Plan day: 2 Plan: routine care and discharge home Time Spent With Patient Time: Total time spent is greater than 50% in coordination of care (as documented) at patient's floor/unit and/or counseling patient: Exam 2 Const: General: comfortable and no acute distress Resp: Effort & Inspection: normal respiratory effort Auscultation: no rales, no rhonchi and no wheezes Cardio: Rate: regular rate Heart sounds: no click, no murmurs and no rubs GI: GI Palp: Yes Soft to palpation and No Tenderness to palpation present (GI) Auscultation: normal bowel sounds Extrem: General: normal to inspection, no pedal edema and no calf tenderness
--- NOTE | 2024-12-26 10:46 | P.DS_ITS ---
DS: Admitting Diagnosis Discharge Date 12/27/2019 Admitting Diagnosis Term DS: Discharge Diagnosis Discharge Diagnosis (1) Term delivered: Code(s): O80 - Encounter for full-term uncomplicated delivery Status: Acute OB - DS: Summary OB Procedures : None OB Procedures Intrapartum: Spontaneous Vag Delivery OB Procedures: : None Peripartum Data Laceration Description: None Episiotomy description: None Time Spent with Patient Time attestation: Total time spent providing and/or coordinating discharge services: Discharge Plan Discharge Consulting providers: Blanca Pierre Discharging Clinician: Neftaly Matamoros Patient Disposition: Home Activity: pelvic rest Diet: regular Patient Instructions: Antibiotic Form Patient Language: Hungarian Stand Alone Forms: General Discharge Information Follow-up/Referrals: Neftaly Matamoros MD [Physician] - Discharge Medications: No Action levothyroxine 75 mcg tablet 75 mcg PO DAILY@0630 aspirin 81 mg tablet 81 mg PO HS ferrous sulfate [Slow Release Iron] 142 mg (45 mg iron) tablet extended release 142 mg PO DAILY@0800 PNV no.95-ferrous fumarate-FA [] 28 mg iron- 800 mcg tablet 1 tablet PO HS Date of admission: 12/23/24 12:20 Primary Care Provider: Dudley Dejesus Admitting Provider: Neftaly Matamoros Attending physician on admission: Neftaly Matamoros Condition: Stable
[2024-12-28 10:21] VITALS: BP 114/67; PULSE 78; RESP 18; TEMP 36.9; O2SAT 100
== END 2024-12-26 13:50 | disposition home or self-care (01) | DRG 807 ==
LOC: ANHLDR 13:30 → ANHOB2 12-24 02:41
PROVIDERS: Advanced Practice Midwife; Admitting Provider Obstetrics & Gynecology; PCP Internal Medicine; Visit Provider Obstetrics & Gynecology
DX: O24.429 Gestational diabetes mellitus in childbirth, unspecified control (principal); Z37.0 Single live birth; Z3A.39 39 weeks gestation of pregnancy; O99.824 Streptococcus B carrier state complicating childbirth; O62.3 Precipitate labor
CPT/HCPCS: 36415; 82948; 84112; 85014; 85018; 85025; 86593; 86850; 86900; 86901; A9270; J0290; J2590; J2795; J3010; J7120